=== PATIENT | male | born 1935 | race Caucasian/White ===

== ENCOUNTER 2023-01-05 09:24 | Outpatient (CLI) | payer MEDICARE, BC, SELFPAY | END 2023-01-05 09:25 | disposition home or self-care (01) | LOC: NFLDREF 01-07 09:54 | PROVIDERS: PCP Internal Medicine; Referring Provider Internal Medicine; Visit Provider Internal Medicine | DX: Z00.00 Encounter for general adult medical examination without abnormal findings (principal); I25.10 Atherosclerotic heart disease of native coronary artery without angina pectoris; R73.03 Prediabetes; I10 Essential (primary) hypertension; M10.9 Gout, unspecified; Z13.6 Encounter for screening for cardiovascular disorders | CPT/HCPCS: 80048; 80061 ==

== ENCOUNTER 2023-11-23 08:24 | Outpatient (CLI) | payer MEDICARE, BC, SELFPAY ==
--- NOTE | 2023-11-23 08:45 | US_ITS ---
Patient: EMI STARK Facility:?[facility] Patient ID:?[id number] Site Patient ID:?[id number]. Site :?[id number] Study:?US-Extremity LEV RT-11/23/2023 9:13:41 AM Ordering Physician:?ELIA BANKS Final Report: Indication: Pain right lower extremity Technique: Ultrasound examination of the right lower extremity venous system was performed. This includes the left common femoral vein. Comparison: None Findings: The left common femoral vein appears normal. There is DVT in 1 of the 2 right peroneal veins. These deep veins. This appears to be nonocclusive. The remainder of the right lower extremity venous system shows no evidence of thrombosis. Impression: 1. Nonocclusive thrombus involving 1 of the 2 right peroneal veins in the calf. 2. The venous system of the right lower extremity is otherwise unremarkable Dictated by Sae Burns MD @ 11/23/2023 9:26:34 AM Signed by:?Sae Burns MD @11/23/2023 9:26:34 AM (Electronic Signature)
== END 2023-11-23 08:25 | disposition home or self-care (01) ==
LOC: US 08:26
PROVIDERS: PCP Internal Medicine; Visit Provider Emergency Medicine
DX: M79.604 Pain in right leg (principal); I82.4Z1 Acute embolism and thrombosis of unspecified deep veins of right distal lower extremity
CPT/HCPCS: 80053; 84443; 85610; 93971

== ENCOUNTER 2023-12-27 09:20 | Outpatient (CLI) | payer MEDICARE, BC, SELFPAY ==
--- OUTSIDE RECORDS SUMMARY | 2024-01-16 10:14 | XMS_ITS | Encounter Summary ---
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 [address] [place] [phone] [facility] Referral ID Status Reason Start Date Expiration Date Visits Re quested Visits Authorized [id number] Closed 11/27/2023 11/26/2024 1 1 Encounter Details Date Type Department Care Team (Latest Contact Info) Description 11/29/2023 8:58 AM CDT - 11/29/2023 9:14 AM CDT Hospital Encounter Department of Radiology, [facility], in [place], [place] [address] [place] [address] Johny Martínez Jr., M.D. [address] [place] [address] Prosthesis Mitral Valve; Prosthesis Aortic Valve; Aneurysm [...] week 03/21/2021 How often do you attend [facility] or judaism services? More than 4 times per year 03/21/2021 Do you belong to any clubs o r organizations such as religious groups, unions, fraternal or athletic groups, or [...] and heating? Not hard at all 08/16/2023 [facility] - Occupational Stress [...] your living situation today? I have a [facility] place to live 08/16/2023 Education Answer Date Recorded What is the highest level of school you have completed or the highest degree you have received? 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 [address] [place] [phone] documented as of this encounter Procedures Procedure [...] (HCC) documented in this encounter Care Teams Casting Inspector Relationship Specialty Start Date End Date Elsewhere, Pcp PCP - General Family Medicine 03/24/21 documented as of this encounter
--- OUTSIDE RECORDS SUMMARY | 2024-01-16 10:14 | XMS_ITS | Referral Summary ---
Author Name Unknown Organization [facility] Address [address] [place] [address] Care Team Providers Care Crutcher Helper Name Role Phone Elsewhere, Pcp Primary Care Provider Unavailabl e Source Comments Patient records contain information from all sites at [facility]. For routine questions regarding patient records, call [phone] during business hours, M-F 8:00 AM - 5:00 PM Central Time. Record requests for emergency care only can be directed to [phone] at any time.[facility] Encounters Date Type Department Care Team Description 01/12/2024 Clinical Communication Department of Ophthalmology in [place], [place] [address] [place] [address] David Zeng M.D. 12/01/2023 Documentation Department of Cardiovascular Medicine in [place], [place] [address] [place] [phone] Johny Martínez Jr., M.D. 11/29/2023 4:00 PM CDT Diagnostic Division of Pulmonary Medicine in [place], [place] [address] [place] [phone] Johny Martínez Jr., M.D. Fibrosis Pulmonary (HCC); Ectopy Atrial 11/29/2023 8:58 AM CDT - 11/29/2023 9:14 AM CDT Hospital Encounter Department of Radiology, [facility], in [place], [place] [address] [place] [address] Johny Martínez Jr., M.D. 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 More than 4 times per year [...] and heating? Not hard at all 08/16/2023 [facility] - [...] your living situation today? I have a [facility] place to live 08/16/2023 Education Answer Date Recorded What is the highest level of school you have completed or the highest degree you have received? Master's degree (e.g., MA, MS, Fanny, MEd, SLD INCLUSION TEACHER, [employer]) 12/25/2020 Sex and Gender Information Value Date Recorded Sex Assigned at Male 08/16/2023 8:01 PM LACING CUTTER Gender Identity Male 12/22/2017 5:18 AM CDT [...] Ancillary Procedure Department of Ophthalmology in [place], [place] [address] [place] [address] 01/31/2024 9:45 AM CDT Comprehensive Visit Department of Ophthalmology in [place], [place] [address] [place] [address] David Zeng M.D. [address] [place] [address] Medical Devices Implanted Type Area Cook Chili Device Identifier Shelf Expiration Date Model / Serial / Lot Valve Trifecta 27mm Gt - [id number] Implanted:Qty: 1 on 11/20/[address] A[address] [employer] (a Division of [employer]) Description:Device Manufactu rer - [employer]. Body Location - Other. Aortic. Device Status Text - [id number]. Patch Dual Mesh 1mm 7.5 X 10 - Peace [id number] Implanted:Qty: 1 on 10/29/2009 Mesh or Patch Other/Legacy - See Implant Description [place] Description:Device Manufactu rer - [employer] Body Location - Other. Not Applicable. Device Status Text - [id number]. Misc Other- 0 Implanted:10/19 (Quantity not on file) Misc Other Mouth Description:Tooth implant Lens Tcn [id number] Bicnvx +14.0d - [id number] - [id number] Implanted:Qty: 1 on 03/24/2021 by David Zeng M.D. at [facility] [employer]onda Ocular Lens Left: Eye [employer] (Previously SHELIA) 10/12/2024 [id number] / [id number] / Lens Tcn [id number] Bicnvx +13.5d - [id number] - [id number] Implanted:Qty: 1 on 04/21/2021 by David Zeng M.D. at [facility] [employer] Ocular Lens Right: Eye [employer] (Previously SHELIA) 11/28/2024 [id number] / [id number] / Procedures Procedure Name Priority Date/Time [...] OUTSIDE DX CHEST Routine 11/23/2023 3:40 PM LACING CUTTER OUTSIDE US Routine 11/23/2023 8:45 AM LACING CUTTER from Last 3 Months Results * (TTE) 2D ECHO DOPPLER COLOR (11/29/2023 10:42 AM CDT) Pathologist [facility] [place] Ejection Fraction 50 MC CV EIMS Proximal [...] estimated ejection fraction range 50% - 55% (bmgk-sg-rcgk variability). 2. Status post 27mm [employer] [...] graphics), estimated ejectionfraction range 50% - 55% (cwor-au-uqxk variability). 2. Status post 27mm [employer] [...] CDT) Ventricular Rate ECG/Min 81 BPM MUSE SD Interval 136 ms MUSE QRSD Interval 150 ms MUSE QT Interval 416 ms MUSE QTC Interval 483 ms MUSE R [place] -61 degrees MUSE T Wave [place] 51 degrees MUSE 11/29/2023 8:39 AM CDT [...] M.D. LAB BLOOD ADD-ON Performing Organization Address [facility] [place] [address] * NT-Pro B-Type Natriuretic Peptide (BNP) (11/29/2023 8:22 AM CDT) [facility] NT-Pro BNP 337 <=540 pg/mL 11/29/2023 11:01 [...] M.D. LAB BLOOD ADD-ON Performing Organization Address [facility] Co de Phone Number [address] [place] [address] * (ABNORMAL) Prothrombin Time (PT) (11/29/2023 8:22 AM CDT) [facility] Prothrombin Time, P 31.1(H) 9.4 - 12.5 sec 11/29/2023 9:00 AM CDT DTL INR 2.8 0.9 - 1.1 11/29/2023 9:00 AM CDT DTL Comment: ----ADDITIONAL INFORMATION---- Standard intensity warfarin therapeutic range: 2.0 to 3.0 ?? High intensity warfarin therapeutic range: 2.5 to 3.5 Blood (Blood, Venous) 11/29/2023 8:22 AM CDT 11/29/2023 8:43 AM CDT Johny Martínez Jr., M.D. LAB BLOOD ADD-ON [address] [address], [facility] [address] [address] * (ABNORMAL) CBC with Differential, Blood (11/29/2023 8:22 AM CDT) Pathologist [facility] [place] Hemoglobin 13.0(L) 13.2 - 16.6 g/dL 11/29/2023 [...] M.D. LAB BLOOD ADD-ON Performing Organization Address City/[facility]/ZIP Co de Phone Number [facility] 200 [place] [address], [facility] [address] [place], [place] [address] [place] [address] 200 [place] [address] * Sodium (11/29/2023 8:22 AM CDT) Sodium, S 142 135 - 145 mmol/L 11/29/2023 11:01 AM CDT DTL Blood (Blood, Venous) 11/29/2023 8:22 AM CDT 11/29/2023 9:01 AM CDT Johny Martínez Jr., M.D. LAB BLOOD ADD-ON [facility] [address] [place] [address], [facility] [address] [place] [address] * Potassium (11/29/2023 8:22 AM CDT) Potassium, S 4.2 3.6 - 5.2 mmol/L 11/29/2023 11:01 AM CDT DTL Blood (Blood, Venous) 11/29/2023 8:22 AM CDT 11/29/2023 9:01 AM CDT Johny Martínez Jr., M.D. LAB BLOOD ADD-ON [facility] [address] [place] [address], [facility] [address] [place] [address] * (ABNORMAL) Glucose, Fasting (11/29/2023 8:22 AM CDT) Glucose, P 114(H) 70 - 100 mg/dL 11/29/2023 9:52 AM CDT DTL Last Intake 2 hr 11/29/2023 9:01 AM CDT DTL Blood (Blood, Venous) 11/29/2023 8:22 AM CDT 11/29/2023 9:01 AM CDT Johny Martínez Jr., M.D. LAB BLOOD NON AD D-ON Performing Organization Address [facility] Co de Phone Number [facility] [address] [place] [address], [facility] [address] [place] [address] * Creatinine with Estimated GFR (11/29/2023 8:22 AM CDT) Creatinine 1.17 0.74 - 1.35 mg/dL 11/29/2023 11:01 AM CDT DTL Estimated GFR (eGFR) 61 >=60 mL/min/BSA 11/29/2023 11:01 AM CDT DTL Comment: Estimated GFR calculated using the 2020 CKD_EPI creatinine equation. Blood (Blood, Venous) 11/29/2023 8:22 AM CDT 11/29/2023 9:01 AM CDT Johny Martínez Jr., M.D. LAB BLOOD ADD-ON [facility] [address] [place] [address], [facility] [address] [place] [address] * Albumin (11/29/2023 8:22 AM CDT) Albumin, S 3.9 3.5 - 5.0 g/dL 11/29/2023 11:01 AM CDT DTL Blood (Blood, Venous) 11/29/2023 8:22 AM CDT 11/29/2023 9:01 AM CDT Johny Martínez Jr., M.D. LAB BLOOD ADD-ON [facility] [address] [place] [address], [facility] [address] [place] [address] * PUL Home Overnight Oximetry (11/29/2023) 11/29/2023 Impressions [facility] NVISION EAP - 12/01/2023 6:37 AM CDT [...] the recording device. Physician: Anil Barakat M.B.B.S [id number] Narrative Procedure Note Anil Barakat M.B.B.S. - [...] from the recordingdevice. Physician: Anil Barakat M.B.B.S [id number] Johny Martínez Jr., M.D. PFT ORDERABLES Performing Organization Address [facility] de Phone Number [facility] * XR chest 2V-Outside Chest Xray (11/23/2023 3:40 PM LACING CUTTER) Narrative IIRI - 11/27/2023 3:59 PM CDT This order [...] DIAGNOSTIC IM AGING PROCEDURES Performing Organization Address [facility] de Phone Number IIMS NA * US venous LE RT-Outside US (11/23/2023 8:45 AM LACING CUTTER) Narrative IIRI - 11/27/2023 3:59 PM CDT This order [...] System IMG US PROCEDURES Performing Organization Address [facility] de Phone Number IIMS NA from Last 3 Months Advance Directives For more information, please contact: [phone] Documents on File Type Date Recorded 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 See document viewer. * Full Code (Latest Code Status on File) Date Activated Date Inactivated Comments 04/25/2018 9:45 PM 04/28/2018 2:47 PM Question Answer Comments Full Code: Not Discussed Due to: Patient not available Care Teams Crutcher Helper Relationship Specialty Start Date End Date Elsewhere, Pcp PCP - General Family Medicine 03/24/21
--- OUTSIDE RECORDS SUMMARY | 2024-01-16 10:14 | XMS_ITS | Encounter Summary ---
Author Name Unknown Organization [facility] Address [address] [place] [address] Care Team Providers Care School Bus Mechanic Name Role Phone Elsewhere, Pcp Primary Care Provider Unavailabl e Encounter Details Date Type Department Care Team ([facility] st Contact Info) Description 12/01/2023 Documentation Department of Cardiovascular Medicine in [place], [place] [address] [place] [address] Johny Martínez Jr., M.D. [address] [place] [address] Social History Tobacco Use Types Packs/Day Years [...] often do you attend chur ch or tenriism services? More than 4 times per year [...] and heating? Not hard at all 08/16/2023 [facility] - [...] your [facility] situation today? [facility] 08/16/2023 Education Answer Date Recorded What is the highest level of school you have completed or the highest degree you have received? Master's degree (e.g., MA, MS, Fanny, MEd, BUILDING SERVICES TECHNICIAN, [employer]) 12/25/2020 Sex and Gender Information Value Date Recorded Sex Assigned at Male 08/16/2023 8:01 PM TENTER FRAME OPERATOR Gender Identity Male 12/22/2017 5:18 AM [...] CDT Ancillary Procedure Department of Ophthalmology in [place], [place] [address] [place] [address] 01/31/2024 9:45 AM CDT Comprehensive Visit Department of Ophthalmology in [place], [place] [address] [place] [address] David Zeng M.D. [address] [place] [address] documented as of this encounter Visit Diagnoses Not on filedocumented in this encounter Care Teams School Bus Mechanic Relationship Specialty Start Date End Date Elsewhere, Pcp PCP - General Family Medicine 03/24/21 documented as of this encounter
--- OUTSIDE RECORDS SUMMARY | 2024-01-16 10:14 | XMS_ITS | Encounter Summary ---
Author Name Unknown Organization [facility] Address [address] [place] [address] Care Team Providers Care Senior Sales Director Name Role Phone Elsewhere, Pcp Primary Care Provider Unavailabl e Encounter Details Date Type Department Care Team (Latest Contact Info) Description 01/12/2024 Clinical Communication Department of Ophthalmology in [place], [place] [address] [place] [address] David Zeng M.D. [address] [place] [phone] Social History Tobacco Use Types Packs/Day Years [...] often do you attend chur ch or advent services? More than 4 times per year 03/21/2021 Do you belong to any clubs o r organizations such as muslim groups, unions, fraternal or athletic groups, or [...] and heating? Not hard at all 08/16/2023 [facility] - Occupational Stress [...] Master's degree (e.g., MA, MS, Fanny, MEd, ELECTRIC MOTOR ANALYST, [employer]) 12/25/2020 Sex and Gender Information Value Date Recorded Sex Assigned at Male 08/16/2023 8:01 PM SCHOOL PHOTOGRAPH EDITOR Gender Identity Male 12/22/2017 5:18 AM CDT Sexual Orientation Straight 12/22/2017 5: 18 AM CDT documented as of this encounter Plan of Treatment Upcoming Encounters Date Type Department Care Team (Latest Contact Info) Description 01/31/2024 9:15 AM CDT Ancillary Procedure Department of Ophthalmology in [place], [place] [address] [place] [address] 01/31/2024 9:45 AM CDT Comprehensive Visit Department of Ophthalmology in [place], [place] [address] [place] [address] David Zeng M.D. [address] [place] [address] documented as of this encounter Visit Diagnoses Not on filedocumented in this encounter Care Teams Senior Sales Director Relationship Specialty Start Date End Date Elsewhere, Pcp PCP - General Family Medicine 03/24/21 documented as of this encounter
--- OUTSIDE RECORDS SUMMARY | 2024-01-16 10:14 | XMS_ITS | Clinical Summary ---
Author Name Unknown Organization [facility] Address [address] [place] [address] Care Team Providers Care Auditing Control Clerk Name Role Phone Elsewhere, Pcp Primary Care Provider Unavailabl e Source Comments Patient records contain information from all sites at [facility]. For routine questions regarding patient records, call [phone] during business hours, M-F 8:00 AM - 5:00 PM Central Time. 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 12/01/2023 Documentation Department of Cardiovascular Medicine in [place], [place] [address] [place] [address] Johny Martínez Jr., M.D. 11/29/2023 4:00 PM CDT Diagnostic Division of Pulmonary Medicine in [place], [place] [address] [place] [address] Johny Martínez Jr., M.D. Fibrosis Pulmonary (HCC); Ectopy Atrial 11/29/2023 2:00 PM CDT Office Visit Department of Cardiovascular Medicine in [place], [place] [address] [place] [address] Johny Martínez Jr., M.D. 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 from Last 3 [...] often do you attend chur ch or mosque services? More than 4 times per year [...] and heating? Not hard at all 08/16/2023 [facility] [place] of Occupat ional Health - Occupational Stress [...] your living situation today? I have a [facility] place to live 08/16/2023 Education Answer Date Recorded What is the highest level of school you have completed or the highest degree you have received? Master's degree (e.g., MA, MS, Fanny, MEd, YEAST TENDER, [employer]) 12/25/2020 Sex and Gender Information Value Date Recorded Sex Assigned at Male 08/16/2023 8:01 PM HEALTH UNIT COORDINATOR Gender Identity Male 12/22/2017 5:18 AM [...] CDT Ancillary Procedure Department of Ophthalmology in [place], [place] [address] [place] [address] 01/31/2024 9:45 AM CDT Comprehensive Visit Department of Ophthalmology in [place], [place] [address] [place] [address] David Zeng M.D. [address] [place] [address] Health Maintenance Due Date Last Done Comments DTaP,Tdap,and Td Vaccines (2 - Td or Tdap) 05/08/2023 05/08/2013, 01/26/2005, 09/18/2002 Depression Screening (Annual PHQ-2) 09/18/2023 Fall Risk Screen (Annual) 09/18/2023 COVID-19 Vaccine (7 2022- 4 season) 2023 06/16/2023, 08/25/2022, 12/28/2021, Additional [...] history exists Medical Devices Implanted Type Area Office Clin Asst Device Identifier Shelf Expiration Date Model / Serial / Lot Valve Trifecta 27mm Gt - [id number] Implanted:Qty: 1 on 11/20/[address] Aorta [employer] (a Division of [employer]) Description:Device Manufactu rer - [employer]. Body Location - Other. Aortic. Device Status Text - [id number]. Patch Dual Mesh 1mm 7.5 X 10 - [id number] Implanted:Qty: 1 on 10/29/2009 Mesh or Patch Other/Legacy - See Implant Description [place] Description:Device Manufactu rer - [employer] Body Location - Other. Not Applicable. Device Status Text - [id number]. Misc Other- Implanted:10/19 (Quantity not on file) Misc Other Mouth Description:Tooth implant Lens Tcn [id number] Bicnvx +14.0d - [id number] - [id number] Implanted:Qty: 1 on 03/24/2021 by David Zeng M.D. at [facility] Ocular Lens Left: Eye [employer] (Previously SHELIA) 10/12/2024 [id number] / [id number] / Lens Tcn [id number] Bicnvx +13.5d - [id number] - [id number] Implanted:Qty: 1 on 04/21/2021 by David Zeng M.D. at [facility] Ocular Lens Right: Eye [employer] (Previously [employer]IA) 11/28/2024 [id number] / [id number] / Procedures Procedure Name Priority Date/Time [...] DX CHEST Routine 11/23/2023 3:40 PM HEALTH UNIT COORDINATOR OUTSIDE US Routine 11/23/2023 8:45 AM HEALTH UNIT COORDINATOR from Last 3 Months Results * (TTE) [...] estimated ejection fraction range 50% - 55% (samd-ui-jctz variability). 2. Status post 27mm [employer] [...] graphics), estimated ejectionfraction range 50% - 55% (kgzx-gc-brou variability). 2. Status post 27mm [employer] [...] CDT) Ventricular Rate ECG/Min 81 BPM MUSE PA Interval 136 ms MUSE QRSD Interval 150 ms MUSE QT Interval 416 ms MUSE QTC Interval 483 ms MUSE R [place] -61 degrees MUSE T Wave [place] 51 degrees MUSE 11/29/2023 8:39 AM CDT [...] Johny Martínez Jr., M.D. LAB BLOOD ADD-ON [facility] [address] [place] [address], [facility] 200 [place] [address] * NT-Pro B-Type Natriuretic Peptide (BNP) (11/29/2023 [...] Johny Martínez Jr., M.D. LAB BLOOD ADD-ON [facility] 200 [place] [address], [facility] 200 [place] [address] * (ABNORMAL) Prothrombin Time (PT) (11/29/2023 8:22 [...] Johny Martínez Jr., M.D. LAB BLOOD ADD-ON [facility] [address] [place] [address], [facility] DTL [facility] [address] [place] [address] * (ABNORMAL) CBC with Differential, Blood (11/29/2023 [...] Johny Martínez Jr., M.D. LAB BLOOD ADD-ON [facility] 200 [place] [address], [facility] 200 [place], [place] [address] [place] [address] 200 [place] [address] * Sodium (11/29/2023 8:22 AM CDT) Sodium, S 142 135 - 145 mmol/L 11/29/2023 11:01 AM CDT DTL Blood (Blood, Venous) 11/29/2023 8:22 AM CDT 11/29/2023 9:01 AM CDT Johny Martínez Jr., M.D. LAB BLOOD ADD-ON Performing Organization Address City/[facility]/ZIP Co de Phone Number [facility] 200 [place] [address], [facility] 200 [place] [address] * Potassium (11/29/2023 8:22 AM CDT) Potassium, S 4.2 3.6 - 5.2 mmol/L 11/29/2023 11:01 AM CDT DTL Blood (Blood, Venous) 11/29/2023 8:22 AM CDT 11/29/2023 9:01 AM CDT Johny Martínez Jr., M.D. LAB BLOOD ADD-ON [facility] [address] [place], [place] [address] 200 [place] [address] * (ABNORMAL) Glucose, Fasting (11/29/2023 8:22 AM CDT) Glucose, P 114(H) 70 - 100 mg/dL 11/29/2023 9:52 AM CDT DTL Last Intake 2 hr 11/29/2023 9:01 AM CDT DTL Blood (Blood, Venous) 11/29/2023 8:22 AM CDT 11/29/2023 9:01 AM CDT Johny Martínez Jr., M.D. LAB BLOOD NON AD D-ON Performing Organization Address [facility] Co de Phone Number [facility] [address] DTL [facility] 200 [place] [address] * Creatinine with Estimated GFR (11/29/2023 8:22 AM CDT) Creatinine 1.17 0.74 - 1.35 mg/dL 11/29/2023 11:01 AM CDT DTL Estimated GFR (eGFR) 61 >=60 mL/min/BSA 11/29/2023 11:01 AM CDT DTL Comment: Estimated GFR calculated using the 2020 CKD_EPI creatinine equation. Blood (Blood, Venous) 11/29/2023 8:22 AM CDT 11/29/2023 9:01 AM CDT Johny Martínez Jr., M.D. LAB BLOOD ADD-ON Performing Organization Address [facility] Co de Phone Number [facility] [address] [place] [address], [facility] DTL [facility] 200 [place] [address] * Albumin (11/29/2023 8:22 AM CDT) Albumin, S 3.9 3.5 - 5.0 g/dL 11/29/2023 11:01 AM CDT DTL Blood (Blood, Venous) 11/29/2023 8:22 AM CDT 11/29/2023 9:01 AM CDT Johny C Martínez Jr., M.D. LAB BLOOD ADD-ON Performing Organization Address [facility] Co de Phone Number [facility] [address] [place] [address], [place] DTL [facility] [address] [place] [address] * PUL Home Overnight Oximetry (11/29/2023) 11/29/2023 Impressions MILTON EMANUEL ZAC - 12/01/2023 6:37 AM CDT This [...] the recording device. Physician: Anil Barakat M.B.B.S [id number] Narrative Procedure Note Anil Barakat M.B.B.S. - [...] from the recordingdevice. Physician: Anil Barakat M.B.B.S [id number] Johny Martínez Jr., M.D. PFT ORDERABLES Performing Organization Address City/[facility]/ZIP Co de Phone Number BUSBY NVISION EAP * XR chest 2V-Outside Chest Xray (11/23/2023 3:40 PM HEALTH UNIT COORDINATOR) Narrative IIOR - 11/27/2023 3:59 PM CDT This order has been created and auto-finalized to support the import of outside images. If available, original interpretation can be found on the Media Tab in Chart Review, in Document Viewer, or as an image in QREADS. If a re-interpretation or overread is required please follow defined workflow. ?? Provider Not In System IMG DIAGNOSTIC IM AGING PROCEDURES IIMS NA * US venous LE RT-Outside US (11/23/2023 8:45 AM HEALTH UNIT COORDINATOR) Narrative IIOR - 11/27/2023 3:59 PM CDT This order [...] System IMG US PROCEDURES Performing Organization Address City/[facility] Co de Phone Number IIMS NA from Last 3 Months Advance Directives For more information, please contact: [phone] Documents on File Type Date Recorded Patient Artificial Stone Setter Expl anation Advance Directives 10/26/2023 11:59 AM BODY /ORGAN DONATION Advance Directives 04/27/2018 8:52 PM Advance Directives 11/20/2017 12:00 AM Jaren collado document. See document viewer. * Full Code (Latest Code Status on File) Date Activated Date Inactivated Comments 04/25/2018 9:45 PM 04/28/2018 2:47 PM Question Answer Comments Full Code: Not Discussed Due to: Patient not available Care Teams Auditing Control Clerk Relationship Specialty Start Date End Date Elsewhere, Pcp PCP - General Family Medicine 03/24/21
--- OUTSIDE RECORDS SUMMARY | 2024-01-16 10:14 | XMS_ITS ---
Author Name Unknown Organization [facility] Address [address] [place] [address] Care Team Providers Care Steel Inspector Name Role Phone Unavailable Unavailable Unavailable Surgery Details Not on file Complications Check Surgery Details section. Procedure Estimated Blood Loss Check Surgery Details section. Procedure Findings Check Surgery Details section. Procedure Specimens Taken Check Surgery Details section.
--- OUTSIDE RECORDS SUMMARY | 2024-01-16 10:14 | XMS_ITS | Encounter Summary ---
Author Name Unknown Organization [facility] Address [address] [place] [address] Care Team Providers Care Alliances Consultant Name Role Phone Elsewhere, Pcp Primary Care Provider Unavailabl e Encounter Details Date Type Department Care Team ([facility] st Contact Info) Description 11/29/2023 4:00 PM CDT Diagnostic Division of Pulmonary Medicine in [place], [place] [address] [place] [address] Johny Martínez Jr., M.D. [address] [place] [address] Fibrosis Pulmonary (HCC); Ectopy Atrial Social History [...] often do you attend chur ch or taoist services? More than 4 times per year 03/21/2021 Do you belong to any clubs o r organizations such as rastafarian groups, unions, fraternal or athletic groups, or [...] and heating? Not hard at all 08/16/2023 [facility] [place] of Occupat ional Health - Occupational Stress [...] your living situation today? I have a [facility] place to live 08/16/2023 Education Answer Date Recorded What is the highest level of school you have completed or the highest degree you have received? Master's degree (e.g., MA, MS, Fanny, MEd, RPG PROGRAMMER ANALYST, [employer]) 12/25/2020 Sex and Gender Information Value Date Recorded Sex Assigned at Male 08/16/2023 8:01 PM SITE MEDICAL DIRECTOR Gender Identity Male 12/22/2017 5:18 AM CDT Sexual Orientation Straight 12/22/2017 5: 18 AM CDT documented as of this encounter Plan of Treatment Upcoming Encounters Date Type Department Care Team (Latest Contact Info) Description 01/31/2024 9:15 AM CDT Ancillary Procedure Department of Ophthalmology in [place], [place] [address] [place] [address] 01/31/2024 9:45 AM CDT Comprehensive Visit Department of Ophthalmology in [place], [place] [address] [place] [address] David eZng M.D. [address] [place] [address] documented as of this encounter Procedures Procedure Name Priority Date/Time Associated Diagnosis Comments PUL HOME OVERNIGHT OXIMETRY Routine 11/29/2023 Fibrosis Pulmonary (HCC) Ectopy Atrial documented in this encounter Results * PUL Home Overnight Oximetry (11/29/2023) 11/29/2023 Impressions TAYLOR NVISION EAP - 12/01/2023 6:37 AM CDT [...] the recording device. Physician: Anil Barakat M.B.B.S [id number] Narrative Procedure Note Anil Barakat M.B.B.S. - [...] from the recordingdevice. Physician: Anil Barakat M.B.B.S [id number] Johny Martínez Jr., M.D. PFT ORDERABLES [facility] documented in this encounter Visit Diagnoses Diagnosis Fibrosis Pulmonary (HCC) Ectopy Atrial documented in this encounter Care Teams Alliances Consultant Relationship Specialty Start Date End Date Elsewhere, Pcp PCP - General Family Medicine 03/24/21 documented as of this encounter
--- OUTSIDE RECORDS SUMMARY | 2024-01-16 10:15 | XMS_ITS | Encounter Summary ---
Author Name Unknown Organization [facility] Address [address] [place] [address] Care Team Providers Care Parking Station Attendant Name Role Phone Elsewhere, Pcp Primary Care Provider Unavailabl e Encounter Details Date Type Department Care Team (Late st Contact Info) Description 12/26/2016 Historical Ophthalmology [facility] Janey Torres O.D. [address] [place] [address] Social History Tobacco Use Types Packs/Day Years Used Date Smoking Tobacco: Never Assessed Sex and Gender Information Value Date Recorded Sex Assigned at Male 08/16/2023 8:01 PM FORM COVERER Gender Identity Male 12/22/2017 5:18 AM CDT [...] (myopia, presbyopia). CDM Reports - EYEGEN Id: [id number] Status: Fnl documented in this encounter Plan of Treatment Upcoming Encounters Date Type Department Care Team (Latest Contact Info) Description 01/31/2024 9:15 AM CDT Ancillary Procedure Department of Ophthalmology in [place], [place] [address] [place] [address] 01/31/2024 9:45 AM CDT Comprehensive Visit Department of Ophthalmology in [place], [place] [address] [place] [address] David Zeng M.D. [address] [place] [address] documented as of this encounter Visit Diagnoses Not on filedocumented in this encounter Additional Health Concerns Infection Onset Date Last Indicated Resolved Time COVID19 Pending 03/22/2021 03/22/2021 03/22/2021 5 :21 PM CDT COVID19 Pending 04/20/2021 04/20/2021 04/20/2021 1 1:46 AM CDT documented as of this encounter Care Teams Parking Station Attendant Relationship Specialty Start Date End Date Elsewhere, Pcp PCP - General Family Medicine 03/24/21 documented as of this encounter
--- OUTSIDE RECORDS SUMMARY | 2024-01-16 10:15 | XMS_ITS | Encounter Summary ---
Author Name Unknown Organization [facility] Address [address] [place] [address] Care Team Providers Care After School Program Teacher Name Role Phone Elsewhere, Pcp Primary Care Provider Unavailabl e Encounter Details Date Type Department Care Team (Late st Contact Info) Description 02/10/2010 Historical Ophthalmology [facility] Ranjit Mcdonald M.D. Social History Tobacco Use Types Packs/Day Years Used Date Smoking Tobacco: Never Assessed Sex and Gender Information Value Date Recorded Sex Assigned at Male 08/16/2023 8:01 PM ELECTRICAL AND INSTRUMENTATION MANAGER Gender Identity Male 12/22/2017 5:18 AM [...] Refractive error (myopia, presbyopia). CDM Reports - EYELio Social Id: [id number] Status: Fnl documented in this encounter Plan of Treatment Upcoming Encounters Date Type Department Care Team (Latest Contact Info) Description 01/31/2024 9:15 AM CDT Ancillary Procedure Department of Ophthalmology in [place], [place] [address] [place] [address] 01/31/2024 9:45 AM CDT Comprehensive Visit Department of Ophthalmology in [place], [place] [address] [place] [address] David Zeng M.D. [address] [place] [address] documented as of this encounter Visit Diagnoses Not on filedocumented in this encounter Additional Health Concerns Infection Onset Date Last Indicated Resolved Time COVID19 Pending 03/22/2021 03/22/2021 03/22/2021 5 :21 PM CDT COVID19 Pending 04/20/2021 04/20/2021 04/20/2021 1 1:46 AM CDT documented as of this encounter Care Teams After School Program Teacher Relationship Specialty Start Date End Date Elsewhere, Pcp PCP - General Family Medicine 03/24/21 documented as of this encounter
--- OUTSIDE RECORDS SUMMARY | 2024-01-16 10:15 | XMS_ITS | Encounter Summary ---
Author Name Unknown Organization [facility] Address [address] [place] [address] Care Team Providers Care Sprinkler Fitter Helper Name Role Phone Elsewhere, Pcp Primary Care Provider Unavailabl e Encounter Details Date Type Department Care Team (Late st Contact Info) Description 01/22/2015 Historical Ophthalmology [facility] Janey Torres O.D. [address] [place] [address] Social History Tobacco Use Types Packs/Day Years Used Date Smoking Tobacco: Never Assessed Sex and Gender Information Value Date Recorded Sex Assigned at Male 08/16/2023 8:01 PM BARGE LOADER Gender Identity Male 12/22/2017 5:18 AM CDT [...] LE wnl. RNFL 88/90. SS 03/25. 01/2014 Daan 24-2 RE and LE scatter. 01/30: Re [...] Refractive error (myopia, presbyopia). CDM Reports - EYEMyMundus Id: [id number] Status: Fnl documented in this encounter Plan of Treatment Upcoming Encounters Date Type Department Care Team (Latest Contact Info) Description 01/31/2024 9:15 AM CDT Ancillary Procedure Department of Ophthalmology in [place], [place] [address] [place] [address] 01/31/2024 9:45 AM CDT Comprehensive Visit Department of Ophthalmology in [place], [place] [address] [place] [address] David Zeng M.D. [address] [place] [address] documented as of this encounter Visit Diagnoses Not on filedocumented in this encounter Additional Health Concerns Infection Onset Date Last Indicated Resolved Time COVID19 Pending 03/22/2021 03/22/2021 03/22/2021 5 :21 PM CDT COVID19 Pending 04/20/2021 04/20/2021 04/20/2021 1 1:46 AM CDT documented as of this encounter Care Teams Sprinkler Fitter Helper Relationship Specialty Start Date End Date Elsewhere, Pcp PCP - General Family Medicine 03/24/21 documented as of this encounter
--- OUTSIDE RECORDS SUMMARY | 2024-01-16 10:15 | XMS_ITS | Encounter Summary ---
Author Name Unknown Organization [facility] Address [address] [place] [address] Care Team Providers Care Remediation Project Engineer Name Role Phone Elsewhere, Pcp Primary Care Provider Unavailabl e Reason for Visit * Reason Onset Date Comments Pre-visit Intake 11/27/2023 Encounter Details Date Type Department Care Team (Latest Contact Info) Description 11/27/2023 2:00 PM CDT Clinical Communication Virtual Review in [place], [place] [address] [place] [address] Pre-visit Intake Social History Tobacco Use Types [...] often do you attend chur ch or anabaptism services? More than 4 times per year 03/21/2021 Do you belong to any clubs o r organizations such as lutheran groups, unions, fraternal or athletic groups, or [...] and heating? Not hard at all 08/16/2023 [facility] [place] of Occupat ional Health - Occupational Stress [...] Master's degree (e.g., MA, MS, Fanny, MEd, FLAKE OR SHRED ROLL OPERATOR, [employer]) 12/25/2020 Sex and Gender Information Value Date Recorded Sex Assigned at Male 08/16/2023 8:01 PM MACHINE VENEER REPAIRER Gender Identity Male 12/22/2017 5:18 AM CDT Sexual Orientation Straight 12/22/2017 5: 18 AM CDT documented as of this encounter Plan of Treatment Upcoming Encounters Date Type Department Care Team (Latest Contact Info) Description 01/31/2024 9:15 AM CDT Ancillary Procedure Department of Ophthalmology in [place], [place] [address] [place] [address] 01/31/2024 9:45 AM CDT Comprehensive Visit Department of Ophthalmology in [place], [place] [address] [place] [address] David Zeng M.D. [address] [place] [address] documented as of this encounter Visit Diagnoses Not on filedocumented in this encounter Care Teams Remediation Project Engineer Relationship Specialty Start Date End Date Elsewhere, Pcp PCP - General Family Medicine 03/24/21 documented as of this encounter
--- OUTSIDE RECORDS SUMMARY | 2024-01-16 10:15 | XMS_ITS | Encounter Summary ---
Author Name Unknown Organization [facility] Address [address] [place] [address] Care Team Providers Care Technical Customer Support Specialist Name Role Phone Elsewhere, Pcp Primary Care Provider Unavailabl e Encounter Details Date Type Department Care Team (Late st Contact Info) Description 01/10/2018 Historical Ophthalmology RST OPH Janey Torres O.D. [address] [place] [address] Social History Tobacco Use Types Packs/Day Years Used Date Smoking Tobacco: Never Sex and Gender Information Value Date Recorded Sex Assigned at Male 08/16/2023 8:01 PM IMPORT MANAGER Gender Identity Male 12/22/2017 5:18 AM [...] Refractive error (myopia, presbyopia). CDM Reports - EYEPlanitax Id: [id number] Status: Fnl documented in this encounter Plan of Treatment Upcoming Encounters Date Type Department Care Team (Latest Contact Info) Description 01/31/2024 9:15 AM CDT Ancillary Procedure Department of Ophthalmology in [place], [place] [address] [place] [address] 01/31/2024 9:45 AM CDT Comprehensive Visit Department of Ophthalmology in [place], [place] [address] [place] [address] David Zeng M.D. [address] [place] [address] documented as of this encounter Visit Diagnoses Not on filedocumented in this encounter Additional Health Concerns Infection Onset Date Last Indicated Resolved Time COVID19 Pending 03/22/2021 03/22/2021 03/22/2021 5 :21 PM CDT COVID19 Pending 04/20/2021 04/20/2021 04/20/2021 1 1:46 AM CDT documented as of this encounter Care Teams Technical Customer Support Specialist Relationship Specialty Start Date End Date Elsewhere, Pcp PCP - General Family Medicine 03/24/21 documented as of this encounter
--- OUTSIDE RECORDS SUMMARY | 2024-01-16 10:15 | XMS_ITS | Encounter Summary ---
Author Name Unknown Organization [facility] Address [address] [place] [address] Care Team Providers Care Mold Repairer Name Role Phone Elsewhere, Pcp Primary Care Provider Unavailabl e Encounter Details Date Type Department Care Team (Late st Contact Info) Description 01/16/2012 Historical Ophthalmology RST OPH Janey Torres O.D. 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 CDM Reports - EYEGEN Id: [id number] Status: Fnl documented in this encounter Plan of Treatment Upcoming Encounters Date Type Department Care Team (Latest Contact Info) Description 01/31/2024 9:15 AM CDT Ancillary Procedure Department of Ophthalmology in [place], [place] [address] [place] [address] 01/31/2024 9:45 AM CDT Comprehensive Visit Department of Ophthalmology in [place], [place] [address] [place] [address] David Zeng M.D. [address] [place] [address] documented as of this encounter Visit Diagnoses Not on filedocumented in this encounter Additional Health Concerns Infection Onset Date Last Indicated Resolved Time COVID19 Pending 03/22/2021 03/22/2021 03/22/2021 5 :21 PM CDT COVID19 Pending 04/20/2021 04/20/2021 04/20/2021 1 1:46 AM CDT documented as of this encounter Care Teams Mold Repairer Relationship Specialty Start Date End Date Elsewhere, Pcp PCP - General Family Medicine 03/24/21 documented as of this encounter
--- OUTSIDE RECORDS SUMMARY | 2024-01-16 10:15 | XMS_ITS | Encounter Summary ---
Author Name Unknown Organization [facility] Address [address] [place] [address] Care Team Providers Care Software Test Specialist Name Role Phone Elsewhere, Pcp Primary Care Provider Unavailabl e Encounter Details Date Type Department Care Team (Late st Contact Info) Description 03/07/2011 Historical Ophthalmology RST OPH Ranjit Mcdonald M.D. 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 CDM Reports - EYEMetaresolver Id: [id number] Status: Fnl documented in this encounter Plan of Treatment Upcoming Encounters Date Type Department Care Team (Latest Contact Info) Description 01/31/2024 9:15 AM CDT Ancillary Procedure Department of Ophthalmology in [place], [place] [address] [place] [address] 01/31/2024 9:45 AM CDT Comprehensive Visit Department of Ophthalmology in [place], [place] [address] [place] [address] David Zeng M.D. [address] [place] [address] documented as of this encounter Visit Diagnoses Not on filedocumented in this encounter Additional Health Concerns Infection Onset Date Last Indicated Resolved Time COVID19 Pending 03/22/2021 03/22/2021 03/22/2021 5 :21 PM CDT COVID19 Pending 04/20/2021 04/20/2021 04/20/2021 1 1:46 AM CDT documented as of this encounter Care Teams Software Test Specialist Relationship Specialty Start Date End Date Elsewhere, Pcp PCP - General Family Medicine 03/24/21 documented as of this encounter
--- OUTSIDE RECORDS SUMMARY | 2024-01-16 10:15 | XMS_ITS | Encounter Summary ---
Author Name Unknown Organization [facility] Address [address] [place] [address] Care Team Providers Care Aluminum Fabrication Supervisor Name Role Phone Elsewhere, Pcp Primary Care Provider Unavailabl e Encounter Details Date Type Department Care Team (Late st Contact Info) Description 12/25/2015 Historical Ophthalmology RST OPH María Martin, C.O.A. 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 [address] [place] [address] documented as of this encounter Visit Diagnoses Not on filedocumented in this encounter Additional Health Concerns Infection Onset Date Last Indicated Resolved Time COVID19 Pending 03/22/2021 03/22/2021 03/22/2021 5 :21 PM CDT COVID19 Pending 04/20/2021 04/20/2021 04/20/2021 1 1:46 AM CDT documented as of this encounter Care Teams Aluminum Fabrication Supervisor Relationship Specialty Start Date End Date Elsewhere, Pcp PCP - General Family Medicine 03/24/21 documented as of this encounter
--- OUTSIDE RECORDS SUMMARY | 2024-01-16 10:15 | XMS_ITS | Encounter Summary ---
Author Name Unknown Organization [facility] Address [address] [place] [address] Care Team Providers Care Merry Go Round Attendant Name Role Phone Elsewhere, Pcp Primary Care Provider Unavailabl e Reason for Referral * Outpatient (Routine) - Authorized Specialty Diagnoses / Procedures Referred By Evie t Referred To Contact Ophthalmology Diagnoses Intraocular Lens Implant Status Post Opacity Lens Posterior Capsule Procedures Yag Capsulotomy - OD - Right Eye Dorota Ibarra O.D. [address] [place] [address] [facility] Referral ID Status Reason Start Date Expiration Date V isits Requested Visits Authorized [id number] Authorized 01/10/2024 01/09/2025 1 1 * Outpatient (Routine) - Authorized Specialty Diagnoses / Procedures Referred By Evie t Referred To Contact Ophthalmology [place] [address] [facility] Referral ID Status Reason Start Date Expiration Date V isits Requested Visits Authorized [id number] Authorized 08/21/2023 08/20/2026 1 1 Scheduling Instructions [facility] glc with testing NE preferred OTELEGRAPHIST Reason for Visit * Reason Comments Glaucoma Suspect * Outpatient (Routine) - Closed Specialty Diagnoses / Procedures Referred By Contac t Referred To Contact Ophthalmology Dorota Ibarra O.D. [address] [place] [phone] [facility] Referral ID Status Reason Start Date Expiration Date Visits Re quested Visits Authorized [id number] Closed 06/15/2022 06/14/2025 1 1 Encounter Details Date Type Department Care Team (Latest Contact Info) Description 08/21/2023 3:45 PM RADIOTELEGRAPHIST Office Visit Department of Ophthalmology in [place], [place] [address] [place] [phone] Dorota Ibarra O.D. [address] [place] [address] Glaucoma Suspect Ocular Hypertension Bilateral (Primary Dx); [...] often do you attend chur ch or catholic services? More than 4 times per year 03/21/2021 Do you belong to any clubs o r organizations such as christianity groups, unions, fraternal or athletic groups, or [...] and heating? Not hard at all 08/16/2023 [facility] [place] of Occupat ional Health - Occupational Stress [...] Master's degree (e.g., MA, MS, Fanny, MEd, SLASHER HAND, [employer]) 12/25/2020 Sex and Gender Information Value Date Recorded Sex Assigned at Male 08/16/2023 8:01 PM RADIOTELEGRAPHIST Gender Identity Male 12/22/2017 5:18 AM CDT [...] off drops. Follow up 12 mo with [facility] for HVF, dilation w tech, and [...] eyes (Dr. House, Apr 22). Flat, stable. OTELEGRAPHIST documented in this encounter Miscellaneous Notes * Addendum Note - Dorota Ibarra O.D. - 08/21/2023 3:45 PM CSTAddended by: DOROTA IBARRA on: 01/10/2024 12:56 PM Modules accepted: Orders documented in this encounter Plan of Treatment Upcoming Encounters Date Type Department Care Team (Latest Contact Info) Description 01/31/2024 9:15 AM CDT Ancillary Procedure Department of Ophthalmology in [place], [place] [address] [place] [address] 01/31/2024 9:45 AM CDT Comprehensive Visit Department of Ophthalmology in [place], [place] [address] [place] [address] David Zeng M.D. [address] [place] [address] Scheduled Orders Name Type Priority Associated Diagnoses [...] Bilateral documented in this encounter Care Teams Merry Go Round Attendant Relationship Specialty Start Date End Date Elsewhere, Pcp PCP - General Family Medicine 03/24/21 documented as of this encounter
--- OUTSIDE RECORDS SUMMARY | 2024-01-16 10:15 | XMS_ITS | Encounter Summary ---
Author Name Unknown Organization [facility] Address [address] [place] [address] Care Team Providers Care Denture Processor Name Role Phone Elsewhere, Pcp Primary Care Provider Unavailabl e Reason for Visit * Appointment Request (Routine) - Closed Specialty Diagnoses / Procedures Referred By Contac t Referred To Contact Cardiovascular Disease Referral ID Status Reason Start Date Expiration Date Visits Re quested Visits Authorized [id number] Closed 11/27/2023 11/26/2024 1 1 Encounter Details Date Type Department Care Team (Latest Contact Info) Description 11/29/2023 2:00 PM CDT Office Visit Department of Cardiovascular Medicine in [place], [place] [address] [place] [address] Johny Martínez Jr., M.D. 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 More than 4 times [...] at all 08/16/2023 [facility] [place] of Occupat ional Health - Occupational Stress [...] living situation today? I have a [facility] place to live 08/16/2023 Education Answer Date Recorded What is the highest level of school you have completed or the highest degree you have received? 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 I [...] cardiac standpoint. He took a trip to [facility] several months ago and wore support hose [...] treatment for one week. 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 [address] [place] [address] documented as of this encounter Results * PUL Home Overnight Oximetry (11/29/2023) 11/29/2023 Impressions N[facility]A EMANUEL FRANK - 12/01/2023 6:37 AM CDT [...] the recording device. Physician: Anil Barakat M.B.B.S [id number] Narrative Procedure Note Anil Barakat M.B.B.S. - [...] from the recordingdevice. Physician: Anil Barakat M.B.B.S [id number] Johny Martínez Jr., M.D. 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
--- OUTSIDE RECORDS SUMMARY | 2024-01-16 10:15 | XMS_ITS | Encounter Summary ---
Author Name Unknown Organization [facility] Address [address] [place] [address] Care Team Providers Care Sole Painter Name Role Phone Elsewhere, Pcp Primary Care Provider Unavailabl e Encounter Details Date Type Department Care Team (Late st Contact Info) Description 01/23/2014 Historical Ophthalmology RST OPH Janey Torres O.D. [address] [place] [address] Social History Tobacco Use Types Packs/Day Years Used Date Smoking Tobacco: Never Assessed Sex and Gender Information Value Date Recorded Sex Assigned at Male 08/16/2023 8:01 PM INSIGHT LEADER Gender Identity Male 12/22/2017 5:18 AM CDT [...] Refractive error (myopia, presbyopia). CDM Reports - EYESpectropath Id: [id number] Status: Fnl documented in this encounter Plan of Treatment Upcoming Encounters Date Type Department Care Team (Latest Contact Info) Description 01/31/2024 9:15 AM CDT Ancillary Procedure Department of Ophthalmology in [place], [place] [address] [place] [address] 01/31/2024 9:45 AM CDT Comprehensive Visit Department of Ophthalmology in [place], [place] [address] [place] [address] David Zeng M.D. [address] [place] [address] documented as of this encounter Visit Diagnoses Not on filedocumented in this encounter Additional Health Concerns Infection Onset Date Last Indicated Resolved Time COVID19 Pending 03/22/2021 03/22/2021 03/22/2021 5 :21 PM CDT COVID19 Pending 04/20/2021 04/20/2021 04/20/2021 1 1:46 AM CDT documented as of this encounter Care Teams Sole Painter Relationship Specialty Start Date End Date Elsewhere, Pcp PCP - General Family Medicine 03/24/21 documented as of this encounter
--- OUTSIDE RECORDS SUMMARY | 2024-01-16 10:15 | XMS_ITS | Encounter Summary ---
Author Name Unknown Organization [facility] Address [address] [place] [address] Care Team Providers Care Relays Draftsperson Name Role Phone Elsewhere, Pcp Primary Care Provider Unavailabl e Encounter Details Date Type Department Care Team (Latest Contact Info) Description 11/29/2023 7:57 AM CDT - 11/29/2023 8:57 AM CDT Hospital Encounter Department of Laboratory Medicine and Pathology, [facility], in [place], [place] [address] [place] [address] Johny Martínez Jr., M.D. [address] [place] [address] Prosthesis Mitral Valve; Prosthesis Aortic Valve; Aneurysm [...] often do you attend chur ch or nondenominational services? More than 4 times per year 03/21/2021 Do you belong to any clubs o r organizations such as zoroastrian groups, unions, fraternal or athletic groups, or [...] and heating? Not hard at all 08/16/2023 [facility] of Occupat ional Health - Occupational Stress [...] your living situation today? I have a [facility] place to live 08/16/2023 Education Answer Date Recorded What is the highest level of school you have completed or the highest degree you have received? Master's degree (e.g., MA, MS, Fanny, MEd, CALENDER MACHINE OPERATOR HELPER, [employer]) 12/25/2020 Sex and Gender Information Value Date Recorded Sex Assigned at Male 08/16/2023 8:01 PM ENVIRONMENTAL HEALTH MANAGER Gender Identity Male 12/22/2017 5:18 AM [...] CDT Ancillary Procedure Department of Ophthalmology in [place], [place] [address] [place] [address] 01/31/2024 9:45 AM CDT Comprehensive Visit Department of Ophthalmology in [place], [place] [address] [place] [address] David Zeng M.D. [address] [place] [address] documented as of this encounter Procedures Procedure [...] Johny Martínez Jr., M.D. LAB BLOOD ADD-ON [place] [address] [place] [address], [facility] [address] [place] [address] * Lipid Panel (11/29/2023 8:22 AM CDT) Pathologist [facility] [place] Triglycerides 67 mg/dL 11/29/2023 11:01 AM CDT [...] Jr., M.D. LAB BLOOD ADD-ON [facility] [place] [place] [address], [facility] [address] [place] [address] * (ABNORMAL) CBC with Differential, Blood (11/29/2023 [...] Johny Martínez Jr., M.D. LAB BLOOD ADD-ON [facility] 200 [place] [address], [facility] [address] [place] [address] * (ABNORMAL) Prothrombin Time (PT) (11/29/2023 8:22 [...] M.D. LAB BLOOD ADD-ON Performing Organization Address City/[facility]/ZIP Co de Phone Number [facility] 200 [place], [place] [phone] [place] [address] 200 [place] [address] * Sodium (11/29/2023 8:22 AM CDT) Sodium, S 142 135 - 145 mmol/L 11/29/2023 11:01 AM CDT DTL Blood (Blood, Venous) 11/29/2023 8:22 AM CDT 11/29/2023 9:01 AM CDT Johny Martínez Jr., M.D. LAB BLOOD ADD-ON Performing Organization Address City/[facility]/ZIP Co de Phone Number [facility] [address] [place], [place] [phone] [place] [address] 200 [place] [address] * Potassium (11/29/2023 8:22 AM CDT) Potassium, S 4.2 3.6 - 5.2 mmol/L 11/29/2023 11:01 AM CDT DTL Blood (Blood, Venous) 11/29/2023 8:22 AM CDT 11/29/2023 9:01 AM CDT Johny Martínez Jr., M.D. LAB BLOOD ADD-ON [facility] [address] [place], [place] [phone] [place] [address] 200 [place] [address] * (ABNORMAL) Glucose, Fasting (11/29/2023 8:22 AM CDT) Glucose, P 114(H) 70 - 100 mg/dL 11/29/2023 9:52 AM CDT DTL Last Intake 2 hr 11/29/2023 9:01 AM CDT DTL Blood (Blood, Venous) 11/29/2023 8:22 AM CDT 11/29/2023 9:01 AM CDT Johny Martínez Jr., M.D. LAB BLOOD NON AD D-ON [facility] [address] [facility] [address] [place] [address] * Creatinine with Estimated GFR (11/29/2023 8:22 AM CDT) Creatinine 1.17 0.74 - 1.35 mg/dL 11/29/2023 11:01 AM CDT DTL Estimated GFR (eGFR) 61 >=60 mL/min/BSA 11/29/2023 11:01 AM CDT DTL Comment: Estimated GFR calculated using the 2020 CKD_EPI creatinine equation. Blood (Blood, Venous) 11/29/2023 8:22 AM CDT 11/29/2023 9:01 AM CDT Johny Martínez Jr., M.D. LAB BLOOD ADD-ON [facility] [address] [place], [place] [phone] [place] [address] [facility] [address] [place] [address] * Albumin (11/29/2023 8:22 AM CDT) Albumin, S 3.9 3.5 - 5.0 g/dL 11/29/2023 11:01 AM CDT DTL Blood (Blood, Venous) 11/29/2023 8:22 AM CDT 11/29/2023 9:01 AM CDT Johny Martínez Jr., M.D. 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
--- OUTSIDE RECORDS SUMMARY | 2024-01-16 10:15 | XMS_ITS | Encounter Summary ---
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 200 [place] [address] [facility] Referral ID Status Reason Start Date Expiration Date Visits Re quested Visits Authorized [id number] Closed 11/27/2023 11/26/2024 1 1 Encounter Details Date Type Department Care Team (Latest Contact Info) Description 11/27/2023 Clinical Communication Department of Cardiovascular Medicine in [place], [place] [address] [place] [phone] Johny Martínez Jr., M.D. [address] [place] [phone] Social History Tobacco Use Types Packs/Day Years [...] week 03/21/2021 How often do you attend [facility] or mandaeism services? More than 4 times per year 03/21/2021 Do you belong to any clubs o r organizations such as nondenominational groups, unions, fraternal or athletic groups, or [...] at all 08/16/2023 [facility] - Occupational Stress Questionnaire Answer Date [...] your living situation today? I have a [facility] place to live 08/16/2023 Education Answer Date Recorded What is the highest level of school you have completed or the highest degree you have received? Master's degree (e.g., MA, MS, Fanny, MEd, CUSTODIAL WORKER, [employer]) 12/25/2020 Sex and Gender Information Value Date Recorded Sex Assigned at Male 08/16/2023 8:01 PM FRONT FACER Gender Identity Male 12/22/2017 5:18 AM CDT Sexual Orientation Straight 12/22/2017 5: 18 AM CDT documented as of this encounter Plan of Treatment Upcoming Encounters Date Type Department Care Team (Latest Contact Info) Description 01/31/2024 9:15 AM CDT Ancillary Procedure Department of Ophthalmology in [place], [place] [address] [place] [address] 01/31/2024 9:45 AM CDT Comprehensive Visit Department of Ophthalmology in [place], [place] [address] [place] [address] David Zeng M.D. [address] [place] [address] documented as of this encounter Results * [...] estimated ejection fraction range 50% - 55% (zefk-qq-hbnz variability). 2. Status post 27mm St. Tru [...] graphics), estimated ejectionfraction range 50% - 55% (zidc-kx-vqgx variability). 2. Status post 27mm St. Tru [...] CDT) Ventricular Rate ECG/Min 81 BPM MUSE [place] Interval 136 ms MUSE QRSD Interval 150 ms MUSE QT Interval 416 ms MUSE QTC Interval 483 ms MUSE R [place] -61 degrees MUSE T Wave [place] 51 degrees MUSE 11/29/2023 8:39 AM CDT [...] Jr., M.D. ECG ORDERABLES Performing Organization Address City/[facility] Co de Phone Number MUSE NA [...] M.D. LAB BLOOD ADD-ON Performing Organization Address [facility] Co de Phone Number [facility] [address] [place] [address], [facility] DTL [facility] [address] [place] [address] * Lipid Panel (11/29/2023 8:22 AM CDT) [...] Johny Martínez Jr., M.D. LAB BLOOD ADD-ON [place] [id number], [facility] 200 [place] [address] * (ABNORMAL) CBC with Differential, Blood (11/29/2023 [...] Johny Martínez Jr., M.D. LAB BLOOD ADD-ON [facility] [address] [place] [address], [facility] DTL [facility] [address] [place] [address] [facility]3] [address] [place] [address] * (ABNORMAL) Prothrombin Time (PT) (11/29/2023 8:22 [...] Johny Martínez Jr., M.D. LAB BLOOD ADD-ON [facility] [address] [place] [address] * Sodium (11/29/2023 8:22 AM CDT) Sodium, S 142 135 - 145 mmol/L 11/29/2023 11:01 AM CDT DT Blood (Blood, Venous) 11/29/2023 8:22 AM CDT 11/29/2023 9:01 AM CDT Johny Martínez Jr., M.D. LAB BLOOD ADD-ON Performing Organization Address [facility] Co de Phone Number [facility] [address] [place] [address] * Potassium (11/29/2023 8:22 AM CDT) Potassium, S 4.2 3.6 - 5.2 mmol/L 11/29/2023 11:01 AM CDT DTL Blood (Blood, Venous) 11/29/2023 8:22 AM CDT 11/29/2023 9:01 AM CDT Johny Martínez Jr., M.D. LAB BLOOD ADD-ON Performing Organization Address City/[facility]/ZIP Co de Phone Number [facility] [address] 200 [place] [address] * (ABNORMAL) Glucose, Fasting (11/29/2023 8:22 AM CDT) Glucose, P 114(H) 70 - 100 mg/dL 11/29/2023 9:52 AM CDT DTL Last Intake 2 hr 11/29/2023 9:01 AM CDT DTL Blood (Blood, Venous) 11/29/2023 8:22 AM CDT 11/29/2023 9:01 AM CDT Johny Martínez Jr., M.D. LAB BLOOD NON AD D-ON [facility] 200 [place], [place] [phone] [place] [address] [facility] 200 [place] [address] * Creatinine with Estimated GFR (11/29/2023 8:22 AM CDT) Creatinine 1.17 0.74 - 1.35 mg/dL 11/29/2023 11:01 AM CDT DTL Estimated GFR (eGFR) 61 >=60 mL/min/BSA 11/29/2023 11:01 AM CDT DTL Comment: Estimated GFR calculated using the 2020 CKD_EPI creatinine equation. Blood (Blood, Venous) 11/29/2023 8:22 AM CDT 11/29/2023 9:01 AM CDT Johny Martínez Jr., M.D. LAB BLOOD ADD-ON [facility] 200 [place] [address], [facility] 200 [place] [address] * Albumin (11/29/2023 8:22 AM CDT) Albumin, S 3.9 3.5 - 5.0 g/dL 11/29/2023 11:01 AM CDT DTL Blood (Blood, Venous) 11/29/2023 8:22 AM CDT 11/29/2023 9:01 AM CDT Johny Martínez Jr., M.D. 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
--- OUTSIDE RECORDS SUMMARY | 2024-01-16 10:15 | XMS_ITS | Encounter Summary ---
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 [address] [place] [address] [facility] Referral ID Status Reason Start Date Expiration Date Visits Re quested Visits Authorized [id number] Closed 11/27/2023 11/26/2024 1 1 Encounter Details Date Type Department Care Team (Latest Contact Info) Description 11/29/2023 9:15 AM CDT - 11/29/2023 11:59 PM CDT Hospital Encounter Department of Cardiovascular Diseases in [place], [place] [address] [place] [address] Johny Martínez Jr., M.D. 200 [place] [address] Prosthesis Mitral Valve; Prosthesis Aortic Valve; Aneurysm [...] week 03/21/2021 How often do you attend [facility] or jewish services? More than 4 times per year [...] and heating? Not hard at all 08/16/2023 [facility] [place] [facility] - Occupational Stress [...] your living situation today? I have a [facility] place to live 08/16/2023 Education Answer Date Recorded What is the highest level of school you have completed or the highest degree you have received? Master's degree (e.g., MA, MS, Fanny, MEd, NETWORK PROJECT MANAGER, [employer]) 12/25/2020 Sex and Gender Information Value Date Recorded Sex Assigned at Male 08/16/2023 8:01 PM FAMILY DAY CARE WORKER Gender Identity Male 12/22/2017 5:18 AM CDT [...] CDT Ancillary Procedure Department of Ophthalmology in [place], [place] [address] [place] [address] 01/31/2024 9:45 AM CDT Comprehensive Visit Department of Ophthalmology in [place], [place] [address] [place] [address] David Zeng M.D. [address] [place] [address] documented as of this encounter Procedures Procedure [...] estimated ejection fraction range 50% - 55% (yxvi-xk-mjgb variability). 2. Status post 27mm St. Tru [...] graphics), estimated ejectionfraction range 50% - 55% (gmod-hc-pzil variability). 2. Status post 27mm St. Tru [...] (HCC) documented in this encounter Care Teams Director Security Risk Management Relationship Specialty Start Date End Date Elsewhere, Pcp PCP - General Family Medicine 03/24/21 documented as of this encounter
--- OUTSIDE RECORDS SUMMARY | 2024-01-16 10:15 | XMS_ITS | Encounter Summary ---
Author Name Unknown Organization [facility] Address [address] [place] [address] Care Team Providers Care Bicycle Service Technician Name Role Phone Elsewhere, Pcp Primary Care Provider Unavailabl e Encounter Details Date Type Department Care Team (Late st Contact Info) Description 12/05/2006 Historical Ophthalmology RST OPH Ranjit Mcdonald M.D. Social History Tobacco Use Types Packs/Day Years Used Date Smoking Tobacco: Never Assessed Sex and Gender Information Value Date Recorded Sex Assigned at Male 08/16/2023 8:01 PM DIRECTOR CONSUMER AFFAIRS Gender Identity Male 12/22/2017 5:18 AM CDT [...] (myopia, presbyopia). CDM Reports - EYEGEN Id: [id number] Status: Fnl documented in this encounter Plan of Treatment Upcoming Encounters Date Type Department Care Team (Latest Contact Info) Description 01/31/2024 9:15 AM CDT Ancillary Procedure Department of Ophthalmology in [place], [place] [address] [place] [address] 01/31/2024 9:45 AM CDT Comprehensive Visit Department of Ophthalmology in [place], [place] [address] [place] [address] David Zeng M.D. [address] [place] [address] documented as of this encounter Visit Diagnoses Not on filedocumented in this encounter Additional Health Concerns Infection Onset Date Last Indicated Resolved Time COVID19 Pending 03/22/2021 03/22/2021 03/22/2021 5 :21 PM CDT COVID19 Pending 04/20/2021 04/20/2021 04/20/2021 1 1:46 AM CDT documented as of this encounter Care Teams Bicycle Service Technician Relationship Specialty Start Date End Date Elsewhere, Pcp PCP - General Family Medicine 03/24/21 documented as of this encounter
--- OUTSIDE RECORDS SUMMARY | 2024-01-16 10:15 | XMS_ITS | Encounter Summary ---
Author Name Unknown Organization [facility] Address [address] [place] [address] Care Team Providers Care Dialysis Chief Equipment Technician Name Role Phone Elsewhere, Pcp Primary Care Provider Unavailabl e Encounter Details Date Type Department Care Team (Late st Contact Info) Description 11/26/2007 Historical Ophthalmology RST OPH Ranjit Mcdonald M.D. Social History Tobacco Use Types Packs/Day Years Used Date Smoking Tobacco: Never Assessed Sex and Gender Information Value Date Recorded Sex Assigned at Male 08/16/2023 8:01 PM ELECTRONICS ASSEMBLER Gender Identity Male 12/22/2017 5:18 AM CDT [...] (myopia, presbyopia). CDM Reports - EYEGEN Id: [id number] Status: Fnl documented in this encounter Plan of Treatment Upcoming Encounters Date Type Department Care Team (Latest Contact Info) Description 01/31/2024 9:15 AM CDT Ancillary Procedure Department of Ophthalmology in [place], [place] [address] [place] [address] 01/31/2024 9:45 AM CDT Comprehensive Visit Department of Ophthalmology in [place], [place] [address] [place] [address] David Zeng M.D. [address] [place] [address] documented as of this encounter Visit Diagnoses Not on filedocumented in this encounter Additional Health Concerns Infection Onset Date Last Indicated Resolved Time COVID19 Pending 03/22/2021 03/22/2021 03/22/2021 5 :21 PM CDT COVID19 Pending 04/20/2021 04/20/2021 04/20/2021 1 1:46 AM CDT documented as of this encounter Care Teams Dialysis Chief Equipment Technician Relationship Specialty Start Date End Date Elsewhere, Pcp PCP - General Family Medicine 03/24/21 documented as of this encounter
--- OUTSIDE RECORDS SUMMARY | 2024-01-16 10:15 | XMS_ITS | Encounter Summary ---
Author Name Unknown Organization [facility] Address [address] [place] [address] Care Team Providers Care Laborer Prestressed Concrete Name Role Phone Elsewhere, Pcp Primary Care Provider Unavailabl e Encounter Details Date Type Department Care Team (Late st Contact Info) Description 12/28/2015 Historical Ophthalmology RST OPH Janey Torres O.D. [address] [place] [address] Social History Tobacco Use Types Packs/Day Years Used Date Smoking Tobacco: Never Assessed Sex and Gender Information Value Date Recorded Sex Assigned at Male 08/16/2023 8:01 PM BALCONY WORKER Gender Identity Male 12/22/2017 5:18 AM [...] (myopia, presbyopia). CDM Reports - EYEGEN Id: [id number] Status: Fnl documented in this encounter Plan of Treatment Upcoming Encounters Date Type Department Care Team (Latest Contact Info) Description 01/31/2024 9:15 AM CDT Ancillary Procedure Department of Ophthalmology in [place], [place] [address] [place] [address] 01/31/2024 9:45 AM CDT Comprehensive Visit Department of Ophthalmology in [place], [place] [address] [place] [address] David Zneg M.D. [address] [place] [address] documented as of this encounter Visit Diagnoses Not on filedocumented in this encounter Additional Health Concerns Infection Onset Date Last Indicated Resolved Time COVID19 Pending 03/22/2021 03/22/2021 03/22/2021 5 :21 PM CDT COVID19 Pending 04/20/2021 04/20/2021 04/20/2021 1 1:46 AM CDT documented as of this encounter Care Teams Laborer Prestressed Concrete Relationship Specialty Start Date End Date Elsewhere, Pcp PCP - General Family Medicine 03/24/21 documented as of this encounter
--- OUTSIDE RECORDS SUMMARY | 2024-01-16 10:15 | XMS_ITS | Encounter Summary ---
Author Name Unknown Organization [facility] Address [address] [place] [address] Care Team Providers Care Manager Spa Name Role Phone Elsewhere, Pcp Primary Care Provider Unavailabl e Encounter Details Date Type Department Care Team (Late st Contact Info) Description 01/10/2013 Historical Ophthalmology RST OPH Janey Torres O.D. [address] [place] [address] Social History Tobacco Use Types Packs/Day Years Used Date Smoking Tobacco: Never Assessed Sex and Gender Information Value Date Recorded Sex Assigned at Male 08/16/2023 8:01 PM HEAT TREATING FURNACE TENDER Gender Identity Male 12/22/2017 5:18 AM CDT [...] Refractive error (myopia, presbyopia). CDM Reports - EYEIntroFly Id: [id number] Status: Fnl documented in this encounter Plan of Treatment Upcoming Encounters Date Type Department Care Team (Latest Contact Info) Description 01/31/2024 9:15 AM CDT Ancillary Procedure Department of Ophthalmology in [place], [place] [address] [place] [address] 01/31/2024 9:45 AM CDT Comprehensive Visit Department of Ophthalmology in [place], [place] [address] [place] [address] David Zeng M.D. [address] [place] [address] documented as of this encounter Visit Diagnoses Not on filedocumented in this encounter Additional Health Concerns Infection Onset Date Last Indicated Resolved Time COVID19 Pending 03/22/2021 03/22/2021 03/22/2021 5 :21 PM CDT COVID19 Pending 04/20/2021 04/20/2021 04/20/2021 1 1:46 AM CDT documented as of this encounter Care Teams Manager Spa Relationship Specialty Start Date End Date Elsewhere, Pcp PCP - General Family Medicine 03/24/21 documented as of this encounter
--- OUTSIDE RECORDS SUMMARY | 2024-01-16 10:15 | XMS_ITS | Encounter Summary ---
Author Name Unknown Organization [facility] Address [address] [place] [address] Care Team Providers Care Trapeze Performer Name Role Phone Elsewhere, Pcp Primary Care Provider Unavailabl e Encounter Details Date Type Department Care Team (Late st Contact Info) Description 01/10/2006 Historical Ophthalmology RST OPH Ranjit Mcdonald M.D. Social History Tobacco Use Types Packs/Day Years Used Date Smoking Tobacco: Never Assessed Sex and Gender Information Value Date Recorded Sex Assigned at Male 08/16/2023 8:01 PM ELECTRICAL INTEGRATOR Gender Identity Male 12/22/2017 5:18 AM CDT [...] (myopia, presbyopia). CDM Reports - EYEGEN Id: [id number] Status: Fnl documented in this encounter Plan of Treatment Upcoming Encounters Date Type Department Care Team (Latest Contact Info) Description 01/31/2024 9:15 AM CDT Ancillary Procedure Department of Ophthalmology in [place], [place] [address] [place] [address] 01/31/2024 9:45 AM CDT Comprehensive Visit Department of Ophthalmology in [place], [place] [address] [place] [address] David Zeng M.D. [address] [place] [address] documented as of this encounter Visit Diagnoses Not on filedocumented in this encounter Additional Health Concerns Infection Onset Date Last Indicated Resolved Time COVID19 Pending 03/22/2021 03/22/2021 03/22/2021 5 :21 PM CDT COVID19 Pending 04/20/2021 04/20/2021 04/20/2021 1 1:46 AM CDT documented as of this encounter Care Teams Trapeze Performer Relationship Specialty Start Date End Date Elsewhere, Pcp PCP - General Family Medicine 03/24/21 documented as of this encounter
--- OUTSIDE RECORDS SUMMARY | 2024-01-16 10:15 | XMS_ITS | Encounter Summary ---
Author Name Unknown Organization [facility] Address [address] [place] [address] Care Team Providers Care Machine I Engraver Name Role Phone Elsewhere, Pcp Primary Care Provider Unavailabl e Encounter Details Date Type Department Care Team (Late st Contact Info) Description 12/10/2008 Historical Ophthalmology RST OPH Ranjit Mcdonald M.D. 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 CDM Reports - EYEGEN Id: [id number] Status: Fnl documented in this encounter Plan of Treatment Upcoming Encounters Date Type Department Care Team (Latest Contact Info) Description 01/31/2024 9:15 AM CDT Ancillary Procedure Department of Ophthalmology in [place], [place] [address] [place] [address] 01/31/2024 9:45 AM CDT Comprehensive Visit Department of Ophthalmology in [place], [place] [address] [place] [address] David Zeng M.D. [address] [place] [address] documented as of this encounter Visit Diagnoses Not on filedocumented in this encounter Additional Health Concerns Infection Onset Date Last Indicated Resolved Time COVID19 Pending 03/22/2021 03/22/2021 03/22/2021 5 :21 PM CDT COVID19 Pending 04/20/2021 04/20/2021 04/20/2021 1 1:46 AM CDT documented as of this encounter Care Teams Machine I Engraver Relationship Specialty Start Date End Date Elsewhere, Pcp PCP - General Family Medicine 03/24/21 documented as of this encounter
--- OUTSIDE RECORDS SUMMARY | 2024-01-16 10:16 | XMS_ITS | Encounter Summary ---
Author Name Unknown Organization [facility] Address [address] [place] [address] Care Team Providers Care Billet Inspector Name Role Phone Elsewhere, Pcp Primary Care Provider Unavailabl e Encounter Details Date Type Department Care Team (Late st Contact Info) Description 03/28/2005 Historical Ophthalmology RST OPH Sim House M.D. Social History Tobacco Use Types Packs/Day Years Used Date Smoking Tobacco: Never Assessed Sex and Gender Information Value Date Recorded Sex Assigned at Male 08/16/2023 8:01 PM FRYER LINE HELPER Gender Identity Male 12/22/2017 5:18 AM [...] glaucoma. Plan: [facility] in [facility] right eye #2 Cataract, both eyes. [...] Refractive error (myopia, presbyopia). CDM Reports - EYESpotOn Id: [id number] Status: Fnl documented in this encounter Plan of Treatment Upcoming Encounters Date Type Department Care Team (Latest Contact Info) Description 01/31/2024 9:15 AM CDT Ancillary Procedure Department of Ophthalmology in [place], [place] [address] [place] [address] 01/31/2024 9:45 AM CDT Comprehensive Visit Department of Ophthalmology in [place], [place] [address] [place] [address] David Zeng M.D. [address] [place] [address] documented as of this encounter Visit Diagnoses Not on filedocumented in this encounter Additional Health Concerns Infection Onset Date Last Indicated Resolved Time COVID19 Pending 03/22/2021 03/22/2021 03/22/2021 5 :21 PM CDT COVID19 Pending 04/20/2021 04/20/2021 04/20/2021 1 1:46 AM CDT documented as of this encounter Care Teams Billet Inspector Relationship Specialty Start Date End Date Elsewhere, Pcp PCP - General Family Medicine 03/24/21 documented as of this encounter
--- OUTSIDE RECORDS SUMMARY | 2024-01-16 10:16 | XMS_ITS | Encounter Summary ---
Author Name Unknown Organization [facility] Address [address] [place] [address] Care Team Providers Care Turret Lathe Set Up Operator Name Role Phone Elsewhere, Pcp Primary Care Provider Unavailabl e Encounter Details Date Type Department Care Team (Late st Contact Info) Description 03/11/2005 Historical Ophthalmology RST OPH Sim House M.D. Social History Tobacco Use Types Packs/Day Years Used Date Smoking Tobacco: Never Assessed Sex and Gender Information Value Date Recorded Sex Assigned at Male 08/16/2023 8:01 PM BUSINESS EXECUTIVE Gender Identity Male 12/22/2017 5:18 AM CDT [...] to wanting a second opinion here at [facility]. 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 Plan: [facility] oct-[facility] in [facility] right eye #2 Cataract, both [...] Refractive error (myopia, presbyopia). [facility] Id: [id number] Status: Fnl documented in this encounter Plan of Treatment Upcoming Encounters Date Type Department Care Team (Latest Contact Info) Description 01/31/2024 9:15 AM CDT Ancillary Procedure Department of Ophthalmology in [place], [place] [address] [place] [address] 01/31/2024 9:45 AM CDT Comprehensive Visit Department of Ophthalmology in [place], [place] [address] [place] [address] David Zeng M.D. [address] [place] [address] documented as of this encounter Visit Diagnoses Not on filedocumented in this encounter Additional Health Concerns Infection Onset Date Last Indicated Resolved Time COVID19 Pending 03/22/2021 03/22/2021 03/22/2021 5 :21 PM CDT COVID19 Pending 04/20/2021 04/20/2021 04/20/2021 1 1:46 AM CDT documented as of this encounter Care Teams Turret Lathe Set Up Operator Relationship Specialty Start Date End Date Elsewhere, Pcp PCP - General Family Medicine 03/24/21 documented as of this encounter
--- OUTSIDE RECORDS SUMMARY | 2024-01-16 10:16 | XMS_ITS | Clinical Summary ---
Author Name Unknown Organization [employer] [facility] Address [place], [place] [address] Care Team Providers Care Mold Car Pusher Name Role Phone Caridad Vaca MD Primary Care Provider [phone] Social History Tobacco Use Types Packs/Day Years [...] 1 - PCV) 002 COVID-19 vaccine series ( season) 3 Influenza for age 65+ 05/19/2024 Care Teams Mold Car Pusher Relationship Specialty Start Date End Date Caridad Vaca MD [address] [place] [address] PCP - General Internal Medicine 11/28/17
--- OUTSIDE RECORDS SUMMARY | 2024-01-16 10:16 | XMS_ITS | Encounter Summary ---
Author Name Unknown Organization [facility] Address [address] [place] [address] Care Team Providers Care Station Cleaning Porter Name Role Phone Elsewhere, Pcp Primary Care Provider Unavailabl e Encounter Details Date Type Department Care Team (Late st Contact Info) Description 04/28/2005 Historical Ophthalmology RST OPH Sim House M.D. 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 - 04/28/2005 12:00 AM CDT Eye Postoperative MULTI-VISIT DOCUMENT This document contains multiple patient visits and is available for review in Document Viewer. CDM Reports - [facility] Id: [id number] Status: Fnl documented in this encounter Plan of Treatment Upcoming Encounters Date Type Department Care Team (Latest Contact Info) Description 01/31/2024 9:15 AM CDT Ancillary Procedure Department of Ophthalmology in [place], [place] [address] [place] [address] 01/31/2024 9:45 AM CDT Comprehensive Visit Department of Ophthalmology in [place], [place] [address] [place] [address] David Zeng M.D. [address] [place] [address] documented as of this encounter Visit Diagnoses Not on filedocumented in this encounter Additional Health Concerns Infection Onset Date Last Indicated Resolved Time COVID19 Pending 03/22/2021 03/22/2021 03/22/2021 5 :21 PM CDT COVID19 Pending 04/20/2021 04/20/2021 04/20/2021 1 1:46 AM CDT documented as of this encounter Care Teams Station Cleaning Porter Relationship Specialty Start Date End Date Elsewhere, Pcp PCP - General Family Medicine 03/24/21 documented as of this encounter
--- OUTSIDE RECORDS SUMMARY | 2024-01-16 10:16 | XMS_ITS | Encounter Summary ---
Author Name Unknown Organization [facility] Address [address] [place] [address] Care Team Providers Care Material Combiner Name Role Phone Elsewhere, Pcp Primary Care Provider Unavailabl e Encounter Details Date Type Department Care Team (Late st Contact Info) Description 02/23/2005 Historical Ophthalmology RST OPH Ranjit Mcdonald M.D. 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 [facility] Reports [facility] Id: [id number] Status: Fnl documented in this encounter Plan of Treatment Upcoming Encounters Date Type Department Care Team (Latest Contact Info) Description 01/31/2024 9:15 AM CDT Ancillary Procedure Department of Ophthalmology in [place], [place] [address] [place] [address] 01/31/2024 9:45 AM CDT Comprehensive Visit Department of Ophthalmology in [place], [place] [address] [place] [address] David Zeng M.D. [address] [place] [address] documented as of this encounter Visit Diagnoses Not on filedocumented in this encounter Additional Health Concerns Infection Onset Date Last Indicated Resolved Time COVID19 Pending 03/22/2021 03/22/2021 03/22/2021 5 :21 PM CDT COVID19 Pending 04/20/2021 04/20/2021 04/20/2021 1 1:46 AM CDT documented as of this encounter Care Teams Material Combiner Relationship Specialty Start Date End Date Elsewhere, Pcp PCP - General Family Medicine 03/24/21 documented as of this encounter
--- OUTSIDE RECORDS SUMMARY | 2024-01-16 10:16 | XMS_ITS | Encounter Summary ---
Author Name Unknown Organization [facility] Address [address] [place] [address] Care Team Providers Care Global Technical Writer Name Role Phone Elsewhere, Pcp Primary Care Provider Unavailabl e Encounter Details Date Type Department Care Team (Late st Contact Info) Description 08/22/2005 Historical Ophthalmology RST OPH Ranjit Mcdonald M.D. 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 - 08/22/2005 12:00 AM CST Eye General CHIEF COMPLAINT 6 [facility] glaucoma follow up HISTORY OF PRESENT ILLNESS Pt is here for a six month [facility] follow up. Pt feels his vision has [...] (myopia, presbyopia). CDM Reports - [facility] Id: [id number] Status: Fnl documented in this encounter Plan of Treatment Upcoming Encounters Date Type Department Care Team (Latest Contact Info) Description 01/31/2024 9:15 AM CDT Ancillary Procedure Department of Ophthalmology in [place], [place] [address] [place] [address] 01/31/2024 9:45 AM CDT Comprehensive Visit Department of Ophthalmology in [place], [place] [address] [place] [address] David Zeng M.D. [address] [place] [address] documented as of this encounter Visit Diagnoses Not on filedocumented in this encounter Additional Health Concerns Infection Onset Date Last Indicated Resolved Time COVID19 Pending 03/22/2021 03/22/2021 03/22/2021 5 :21 PM CDT COVID19 Pending 04/20/2021 04/20/2021 04/20/2021 1 1:46 AM CDT documented as of this encounter Care Teams Global Technical Writer Relationship Specialty Start Date End Date Elsewhere, Pcp PCP - General Family Medicine 03/24/21 documented as of this encounter
== END 2023-12-27 09:21 | disposition home or self-care (01) ==
LOC: NFLDREF 01-16 10:06
PROVIDERS: PCP Internal Medicine; Referring Provider Internal Medicine; Visit Provider Internal Medicine
DX: I25.10 Atherosclerotic heart disease of native coronary artery without angina pectoris (principal); I10 Essential (primary) hypertension; Z13.220 Encounter for screening for lipoid disorders
CPT/HCPCS: 80061

== ENCOUNTER 2024-01-09 11:00 | Outpatient (RCR) | payer MEDICARE, BC, SELFPAY ==
--- NOTE | 2023-12-26 12:02 | PT.OPEX ---
[facility] [place] [facility] Eval PT [facility] Outpatient Eval Start: 12/26/23 07:29 Freq: Status: Active Protocol: Document 12/26/23 07:29 LEXY (Rec: 12/26/23 11:59 LEXY [id number]) E-signed By Gabriel Ross PT Physical Therapy Outpatient Evaluation Insurance Information Insurance Name Medicare B,Blue [employer]/Blue Shield Medical Diagnosis Right buttock pain Right LE DVT Treating Diagnosis Right gluteal tightness Mild right gluteal weakness Referring MD [place] Subjective Subjective Pt. reports incidious onset of severe right LE/foot pain 6 weeks ago when walking. A DVT was found on US and he was started on blood thinners. He ended up going to [place] to see [facility] diver [facility] for some A-fib symptoms but they didn't feel like his symptoms were due to the blood clot. Fortunately he has gained normal painfree status again but he's hoping to prevent any future flare ups if it was due to musculoskeletal issues instead of the blood clot. He denies any recent LBP but feels like it may have been sciatic type pain he was having. No history of similar problems without lumbar or hip issues. Good overall health other than HTN and a heart valve problem. He walks daily for exercise normally. Pain Comments 0-1 Date of Last Physician Visit 12/07/23 Current Work Status Retired Preferred Name Eduardo Objective Other/Pertinent Objective LROM: WNL and painfree Hip ROM: WNL and symmetrical without pain SLR/SLUMP: Negative bilat. Palpation: mild/mod tightness of right gluteals strength: mild weakness of gluteals Assessment Assessment/Impression Objectively, pt. demonstrates; painfree and functional LROM for age without any symptom provocation; negative slump and SLR testing; functional and symmetrical hip ROM without pain; mild right gluteal tightness and weakness ; and mild right gluteal hypertonus with palpation. Pt. would benefit from skilled therapy working on a progressive HEP for core/ gluteal strengthening and hip/ gluteal/LE flexibility. Primary Functional Limitations walking Plan of Care Rehabilitation Potential Excellent Physical Therapy Goals 1. Pt. will be independent with HEP for self maintenance in 4 weeks. 2. Pt. will demonstrate improved gluteal/core strength in 4-8 weeks. 3. Pt. will be able to walk daily for exercise without any pain symptoms in 4-8 weeks. Coordination/Communication With Referral Source Treatment Plan/Direct Interventions Manual Therapy,Self-Care/Home Management,Therapeutic Exercises Frequency/Duration 2-4 visits over 4-8 weeks Patient Will Be Discharged From Therapy Independent w/HEP, Independently Progressing Evaluation Billing Complexity Low Certification Information Initial Certification Date 12/26/23 Ending Certification Date 03/25/24 Provider Signature Shows Agreement With POC & Medical Necessity Physician Signature & Date Requested Please Sign/Date Here Physician Comment/Change : Physician NPI Number #
== END 2024-04-05 15:11 | disposition home or self-care (01) ==
PROVIDERS: PCP Internal Medicine; Visit Provider Internal Medicine
DX: M79.18 Myalgia, other site (principal); I82.401 Acute embolism and thrombosis of unspecified deep veins of right lower extremity; R29.898 Other symptoms and signs involving the musculoskeletal system; Z51.89 Encounter for other specified aftercare
CPT/HCPCS: 97110; 97161

== ENCOUNTER 2024-01-10 20:59 | Outpatient (CLI) | payer MEDICARE, BC, SELFPAY ==
--- OUTSIDE RECORDS SUMMARY | 2024-01-10 21:02 | XMS_ITS | Referral Summary ---
Author Name Unknown Organization [facility] Address [address] [place] [id number] Care Team Providers Care Counselor Supervisor Name Role Phone Elsewhere, Pcp Primary Care Provider Unavailabl e Source Comments Patient records contain information from all sites at [facility]. For routine questions regarding patient records, call [phone] during business hours, M-F 8:00 AM - 5:00 PM Central Time. Record requests for emergency care only can be directed to [phone] at any time.[facility] Encounters Date Type Department Care Team Description 12/01/2023 Documentation Department of Cardiovascular Medicine in [place], [place] [address] [place] [address] Johny Martínez Jr., M.D. 11/29/2023 4:00 PM CDT Diagnostic Division of Pulmonary Medicine in [place], [place] [address] [place] [phone] Johny Martínez Jr., M.D. Fibrosis Pulmonary (HCC); Ectopy Atrial 11/29/2023 8:58 AM CDT - 11/29/2023 9:14 AM CDT Hospital Encounter Department of Radiology, [facility], in [place], [place] [address] [place] [address] Johny Martínez Jr., M.D. 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 from Last 3 Months Allergies No known active allergies Medications Medication Sig Dispensed Refills Start Date End Date Status allopurinol (ZYLOPRIM) 300 mg tablet Take 150 mg by mouth daily. 05/08/2013 Active hydroCHLOROthiazide (HYDRODIURIL) 25 mg tablet Take 25 mg by mouth daily. 07/01/2015 Active omeprazole (PriLOSEC) [address] capsule Take 20 mg by mouth daily. 03/08/2023 Active lisinopril (PRINIVIL,ZESTRIL) 0.625 mg tablet Take 10 mg by mouth daily. 01/10/2023 Active rosuvastatin (CRESTOR) 1.25 mg tablet Take 10 mg by mouth daily. 01/10/2023 Active metoprolol succinate (TOPROL-XL) 25 mg 24 hr tablet Take 25 mg by mouth daily. HAVE NOT STARTED YET- WAITING FOR APPT 11/29/23 11/23/2023 Active Xarelto 15 mg tablet Take 15 mg by mouth 2 (two) times a day with meals. 11/24/2023 Active acetaminophen (TYLENOL) 500 mg tablet Take 1,000 mg by mouth every 6 (six) hours as needed for pain. 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 0 03/15/2019 Combined Forms Age Related Cataract Bilateral Membrane Macula Epiretinal Bilateral 03/15/2019 Detachment Retinal With Multiple Defect Bilatera l 03/15/2019 Myopia Bilateral 03/15/2019 Presbyopia 03/15/2019 Abscess Abdominopelvic 05/13/2018 Pain Right Lower Quadrant 05/10/2018 Appendectomy Laparoscopic Status Post 05/10/2018 Abscess Intra Abdominal 05/10/2018 Coronary Artery Disease Of Coronary Artery Bypas s Graft 04/26/2018 Anticoagulant Therapy 04/26/2018 Hyperlipidemia 04/26/2018 Benign Prostatic Hyperplasia Without Obstruction 04/26/2018 Gout 04/26/2018 Herniorrhaphy Umbilical Status Post 04/26/2018 Appendicitis Acute 04/25/2018 Overview: Added automatically from request for surgery [id number] Prolonged QT Interval 11/25/2017 Replacement Aortic Valve Tissue 11/25/2017 Lung Interstitial Disease 11/07/2017 Pneumonitis Interstitial Usual 10/17/2017 Coronary Artery Disease Without Angina Pectoris 10/16/2017 Hypertension Essential Primary 12/26/2003 Gastroesophageal Reflux Disease NOS 12/26/2003 Resolved Problems Problem Noted Date Diagnosed Date Resolved Date Prosthesis Mitral Valve 03/13/202302/17 Immunizations Name Administration Dates Next Due HZV (ZOSTAVAX) 03/12/2008 Influenza (IM) Preservative Free 10/30/2009 Influenza Split 06/18/2011, 7,06/18/2005,2003,07/19/2003,07/19/2002 Influenza, Seasonal, Injectable 07/14/2006 PPSV23(Discontinued) 02/13/2008 SARS-COV-2 (COVID-19) - PFIZ ER BIVALENT TS(Discontinued)(12 YEARS OR OLDER) 08/25/2022 Td, (Adult) Unspecified 09/18/2002 Tdap 05/08/2013 influenza high dose (65 year s or older) (PF) 07/26/2017,07/06/2010 Social History Tobacco Use Types Packs/Day Years Used Date Smoking Tobacco: Never Passive Smoke Exposure: Past Smokeless Tobacco: Never Tobacco Cessation:Counseling Given: Not Answered Passive Exposure Comments:as a young child Alcohol Use Standard Drinks/Week Comments Yes 5 (1 standard drink = 0.6 oz pur e alcohol) Social Connection and Isolat ion Panel [NHANES] Answer Date Recorded In a typical week, how many times do you talk on the phone with family, friends, or neighbors? Three times a week 03/21/2021 How often do you get togethe r with friends or relatives? Once a week 03/21/2021 How often do you attend chur or episcopal services? More than 4 times per year 03/21/2021 Do you belong to any clubs o r organizations such as holiness groups, unions, fraternal or athletic groups, or school groups? Yes 03/21/2021 How often do you attend meet ings of the clubs or organizations you belong to? More than 4 times per year 03/21/2021 Are you , , di vorced, , never , or living with a partner? Living with partner 03/21/2021 AUDIT-C Answer Date Recorded Q1: How often do you have a drink containing alcohol? 4 or more times a week 03/21/2021 Q2: How many drinks containi ng alcohol do you have on a typical day when you are drinking? 1 or 2 Q3: How often do you have si x or more drinks on one occasion? Never 03/21/2021 Overall Financial Resource Strain (CARDIA) Answe r Date Recorded How hard is it for you to pa y for the very basics like food, housing, medical care, and heating? Not hard at all 08/16/2023 [facility] of Occupat ional Health - Occupational Stress Questionnaire Answer Date Recorded Do you feel stress - tense, restless, nervous, or anxious, or unable to sleep at night because your mind is troubled all the time - these days? Not at all 03/21/2021 Exercise Vital Sign Answer Date Recorde d On average, how many days pe r week do you engage in moderate to strenuous exercise (like a brisk walk)? 4 days 08/16/2023 On average, how many minutes do you engage in exercise at this level? 40 min 08/16/2023 Hunger Vital Sign Answer Date Recorded Within the past 12 months, y ou worried that your food would run out before you got the money to buy more. Never true 08/16/20 Within the past 12 months, t he food you bought just didn't last and you didn't have money to get more. Never true 08/16/2023 PRAPARE - Transportation Answer Date Re corded In the past 12 months, has l ack of transportation kept you from medical appointments or from getting medications? No 07/20 In the past 12 months, has l ack of transportation kept you from meetings, work, or from getting things needed for daily living? No 08/16/2023 Nutrition Answer Date Recorded Nutrition: EVOO Fat Source Yes 03/21 On average, how many serving s of fruits and vegetables do you eat per day (serving size is equal to 1 cup or approximately the size of a tennis ball)? 4-5 03/21/2021 Dental Answer Date Recorded Dental: Regular Dentist Yes 09/26/19 Employment Answer Date Recorded Employment status Retired 08/16/2023 Housing Stability Answer Date Recorded What is your living situation today? I have a [facility] place to live 08/16/2023 Education Answer Date Recorded What is the highest level of school you have completed or the highest degree you have received? Master's degree (e.g., MA, MS, Fanny, MEd, [employer], [employer]) 12/25/2020 Sex and Gender Information Value Date Recorded Sex Assigned at Male 08/16/2023 8:01 PM HEALTH COMMUNICATIONS SPECIALIST Gender Identity Male 12/22/2017 5:18 AM CDT Sexual Orientation Straight 12/22/2017 5: 18 AM CDT Last Filed Vital Signs Vital Sign Reading Time Taken Comments Blood Pressure 143/84 11/29/2023 2:05 PM CDT Pulse 78 11/29/2023 2:05 PM CDT Temperature 36.8 ??C (98.2 ??F) 04/21/2021 7:54 AM CD T Respiratory Rate 15 04/21/2021 8:40 AM CDT Oxygen Saturation 99% 04/21/2021 8:40 AM CDT Inhaled Oxygen Concentration - - Weight 69 kg (152 lb 1.9 oz) 11/29/2023 2:05 PM CDT Height 167 cm (5' 5.75) 11/29/2023 2:05 PM CDT Body Mass Index 24.74 11/29/2023 2:05 PM CDT Plan of Treatment Upcoming Encounters Date Type Department Care Team (Latest Contact Info) Description 01/24/2024 10:30 AM CDT Ancillary Procedure Department of Ophthalmology in [place], [place] [address] [place] [address] 01/24/2024 11:00 AM CDT Comprehensive Visit Department of Ophthalmology in [place], [place] [address] [place] [address] David Zeng M.D. [address] [place] [address] Medical Devices Implanted Type Area Concessionist Device Identifier Shelf Expiration Date Model / Serial / Lot Valve Trifecta 27mm Gt - Peace [id number] Implanted:Qty: 1 on 11/20/[address] Cardiac Val[address] Aorta [employer] (a Division of [employer]) Description:Device Manufactu rer - [employer]. Body Location - Other. Aortic. Device Status Text - [id number]. Patch Dual Mesh 1mm 7.5 X 10 - [id number] Implanted:Qty: 1 on 10/29/2009 Mesh or Patch Other/Legacy - See Implant Description [place] Description:Device Manufactu rer - [employer] Body Location - Other. Not Applicable. Device Status Text - [id number]. Misc Other- 0 Implanted:10/19 (Quantity not on file) Misc Other Mouth Description:Tooth implant Lens Tcn [id number] Bicnvx +14.0d - [id number] - [id number] Implanted:Qty: 1 on 03/24/2021 by David Zeng M.D. at [facility] [employer] Ocular Lens Left: Eye [employer] (Previously SHELIA) 10/12/2024 [id number] / [id number] / Lens Tcn [id number] Bicnvx +13.5d - [id number] - [id number] Implanted:Qty: 1 on 04/21/2021 by David Zeng M.D. 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) ECG Routine 11/29/2023 8:39 AM CDT Prosthesis Mitral Valve Prosthesis Aortic Valve 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) NT-PRO B-TYPE NATRIURETIC PEPTIDE (BNP), S Routine 11/29/2023 8:22 AM CDT Prosthesis Mitral Valve Prosthesis Aortic Valve 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) LIPID PANEL, S Routine 11/29/2023 8:22 AM CDT Prosthesis Mitral Valve Prosthesis Aortic Valve 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) CBC WITH DIFFERENTIAL, B Routine 11/29/2023 8:22 AM CDT Prosthesis Mitral Valve Prosthesis Aortic Valve 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) PROTHROMBIN TIME (PT), P Routine 11/29/2023 8:22 AM CDT Prosthesis Mitral Valve Prosthesis Aortic Valve 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) SODIUM, S/P Routine 11/29/2023 8:22 AM CDT Prosthesis Mitral Valve Prosthesis Aortic Valve 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) POTASSIUM, S/P Routine 11/29/2023 8:22 AM CDT Prosthesis Mitral Valve Prosthesis Aortic Valve 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) GLUCOSE, FASTING, S/P Routine 11/29/2023 8:22 AM CDT Prosthesis Mitral Valve Prosthesis Aortic Valve 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) CREATININE WITH EGFR, S/P Routine 11/29/2023 8:22 AM CDT Prosthesis Mitral Valve Prosthesis Aortic Valve 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) ALBUMIN, S/P Routine 11/29/2023 8:22 AM CDT Prosthesis Mitral Valve Prosthesis Aortic Valve 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) PUL HOME OVERNIGHT OXIMETRY Routine 11/29/2023 Fibrosis Pulmonary (HCC) Ectopy Atrial OUTSIDE DX CHEST Routine 11/23/2023 3:40 PM HEALTH COMMUNICATIONS SPECIALIST OUTSIDE US Routine 11/23/2023 8:45 AM HEALTH COMMUNICATIONS SPECIALIST from Last 3 Months Results * (TTE) 2D ECHO DOPPLER COLOR (11/29/2023 10:42 AM CDT) Ejection Fraction 50 MC CV EIMS Proximal Ascending Aorta 38 MC CV EIMS Mid-Ascending Aorta 38 MC CV EIMS Wall Motion Score Index 1.25 MC CV EIMS LV Mass Index 82 MC CV EIMS LV End-Diastolic Diameter 50 MC CV EIMS LV End-Systolic Diameter 34 MC CV EIMS MV E Velocity 1 MC CV EIMS MV A Velocity 1.1 MC CV EIMS MV E/A 0.91 MC CV EIMS MV e' Velocity Lateral 0.06 MC CV EIMS MV E/e' Lateral 16.7 MC CV EIMS Left ventricular stroke volume index 56 MC CV EIMS Cardiac Output 7.21 MC CV EIMS Cardiac Index 4.05 MC CV EIMS LV Interventricular Septal Wall Thickness 9 MC CV EIMS LV Posterior Wall Thickness 8 MC CV EIMS LV Relative Wall Thickness 32 MC CV EIMS RV 4-Chamber Basal Diameter 45 MC CV EIMS RV 4-Chamber Mid Diameter 42 MC CV EIMS Tricuspid Annular S? 0.12 MC CV EIMS TR Vmax 2.97 MC CV EIMS RA Pressure 5 MC CV EIMS RV Systolic Pressure 40 MC CV EIMS Estimated diastolic pulmonary artery pressure 10 MC CV EIMS AV mean gradient 6 MC CV EIMS Aortic valve area 2.86 MC CV EIMS Aortic Valve Area Index 1.61 MC CV EIMS Aortic Valve Dimensionless Index 0.58 MC CV EIMS MV mean gradient 3 MC CV EIMS TV Regurgitant Volume 36 MC CV EIMS Aortic Valve Systolic Peak Velocity 1.6 MC CV EIMS Anatomical Region Laterality Modality Echocardiography 11/29/2023 9:34 AM CDT Impressions 11/29/2023 11:28 AM CDT Status post coronary artery bypass graft(s) x1 (11/20/2017). Last full echocardiogram performed 03/13/2023. LEFT VENTRICLE:Normal left ventricular chamber size. Calculated 2-D monoplane volumetric left ventricular ejection fraction 53%. Estimated left ventricular ejection fraction range 50% - 55%. Left ventricular stroke volume index 56 ml/m2. Regional wall motion abnormalities were present (see wall motion graphics). Indeterminate left ventricular filling pressure. RIGHT VENTRICLE:Mildly enlarged right ventricular chamber size. Normal right ventricular systolic function. Estimated right ventricular systolic pressure 40 mmHg (right atrial pressure of 5 mmHg). ATRIA:Bi-atrial enlargement. 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 Aortic valve prosthetic orifice area by Doppler: 2.86 cm2 No aortic valve prosthetic regurgitation. No aortic valve periprosthetic regurgitation. Calcified mitral annulus. Mitral valve diastolic mean Doppler gradient 3 mmHg (heart rate 70 BPM). Mitral valve area by continuity equation 3.34 cm2. Mild mitral valve regurgitation. Normal pulmonary valve. Normal pulmonary valve systolic velocities. Mild pulmonary valve regurgitation. Tricuspid annulus dilatation. Moderate tricuspid valve regurgitation. Tricuspid regurgitant volume (PISA) 36 ml. Tricuspid regurgitation ERO (PISA) 0.39 cm2. OTHER ECHO FINDINGS:Normal inferior vena cava size with normal inspiratory collapse (>50%). Normal mid ascending aorta diameter of 38 mm. Normal abdominal aorta Doppler flow pattern. No intracardiac mass or thrombus, but the left atrial appendage cannot be visualized adequately with transthoracic echo to exclude thrombus in this location. No ??pericardial effusion. For the complete report, see the Order-Level Documents. Narrative 11/29/2023 11:28 AM CDT For the complete report, see the Order-Level Documents. Hemodynamics Heart Rate: 78 BPM Blood Pressure: 150 / 84 mmHg ECG: Sinus rhythm with ectopics Final Impressions 1. Normal left ventricular chamber size, regional wall motion abnormalities were present (see wall motion graphics), estimated ejection fraction range 50% - 55% ([id number] variability). 2. 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 Aortic valve prosthesis systolic mean Doppler gradient 6 mmHg. No evidence of prosthetic or periprosthetic regurgitation. 4. Calcified mitral annulus , mean Doppler gradient 3 mmHg (heart rate 70 BPM), mild regurgitation. 5. Moderate tricuspid valve regurgitation, ERO (PISA) 0.39 cm2, regurgitant volume (PISA) 36 ml. 6. Mildly enlarged right ventricular chamber size, normal systolic function, estimated right ventricular systolic pressure 40 mmHg (right atrial pressure of 5 mmHg). 7. Normal inferior vena cava size with normal inspiratory collapse (>50%). 8. Compared to the report of 03/13/2023 no significant change has occurred. Side by side comparison of images performed The inferior and inferior lateral wall motion abnormalities have been variably reported over previous multiple echocardiograms. Procedure Note Edward Lin M.D. - 11/29/2023 For the complete report, see the Order-Level Documents. Hemodynamics Heart Rate: 78 BPM Blood Pressure: 150 / 84 mmHg ECG: Sinus rhythm with ectopics Final Impressions 1. Normal left ventricular chamber size, regional wall motionabnormalities were present (see wall motion graphics), estimated ejectionfraction range 50% - 55% (smys-nj-[id number] variability). 2. 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 Aortic valve prosthesis systolic mean Doppler gradient 6 mmHg. Noevidence of prosthetic or periprosthetic regurgitation. 4. Calcified mitral annulus , mean Doppler gradient 3 mmHg (heart rate 70BPM), mild regurgitation. 5. Moderate tricuspid valve regurgitation, ERO (PISA) 0.39 cm2,regurgitant volume (PISA) 36 ml. 6. Mildly enlarged right ventricular chamber size, normal systolicfunction, estimated right ventricular systolic pressure 40 mmHg (rightatrial pressure of 5 mmHg). 7. Normal inferior vena cava size with normal inspiratory collapse(>50%). 8. Compared to the report of 03/13/2023 no significant change hasoccurred. Side by side comparison of images performed The inferior andinferior lateral wall motion abnormalities have been variably reportedover previous multiple echocardiograms. Findings Status post coronary artery bypass graft(s) x1 (11/20/2017). Last fullechocardiogram performed 03/13/2023. LEFT VENTRICLE:Normal left ventricular chamber size. Calculated 2-Dmonoplane volumetric left ventricular ejection fraction 53%. Estimatedleft ventricular ejection fraction range 50% - 55%. Left ventricularstroke volume index 56 ml/m2. Regional wall motion abnormalities werepresent (see wall motion graphics). Indeterminate left ventricular fillingpressure. RIGHT VENTRICLE:Mildly enlarged right ventricular chamber size. Normalright ventricular systolic function. Estimated right ventricular systolicpressure 40 mmHg (right atrial pressure of 5 mmHg). ATRIA:Bi-atrial enlargement. CARDIAC VALVES:Status post 27mm [employer] Trifecta pericardial aortic valveprosthesis () Aortic valve prosthesis systolic mean Dopplergradient 6 mmHg. Aortic valve prosthetic orifice area by Doppler: 2.86 cm2No aortic valve prosthetic regurgitation. No aortic valve periprostheticregurgitation. Calcified mitral annulus. Mitral valve diastolic meanDoppler gradient 3 mmHg (heart rate 70 BPM). Mitral valve area bycontinuity equation 3.34 cm2. Mild mitral valve regurgitation. Normalpulmonary valve. Normal pulmonary valve systolic velocities. Mildpulmonary valve regurgitation. Tricuspid annulus dilatation. Moderatetricuspid valve regurgitation. Tricuspid regurgitant volume (PISA) 36 ml.Tricuspid regurgitation ERO (PISA) 0.39 cm2. OTHER ECHO FINDINGS:Normal inferior vena cava size with normal inspiratorycollapse (>50%). Normal mid ascending aorta diameter of 38 mm. Normalabdominal aorta Doppler flow pattern. No intracardiac mass or thrombus,but the left atrial appendage cannot be visualized adequately withtransthoracic echo to exclude thrombus in this location. No pericardialeffusion. For the complete report, see the Order-Level Documents. Johny Martínez Jr., M.D. CV ECHO PROCEDUR ES * DX Chest AP or PA and Lateral 2 Views (11/29/2023 9:02 AM CDT) Anatomical Region Laterality Modality Chest, Thoracic RST LOS, Tho racic ARZ LOS, Thoracic FLA LOS N/A Digital Radiography Impressions 11/29/2023 9:15 AM CDT Sternotomy with AVR. Aortic calcification. Peripheral interstitial fibrosis is slightly more prominent than on 03/13/2023. Heart size at upper limits of normal. Narrative 11/29/2023 9:15 AM CDT EXAM: ??DX CHEST AP OR PA AND LATERAL 2 VIEWS Procedure Note Esteban Saeed M.D. - 11/29/2023 EXAM: DX CHEST AP OR PA AND LATERAL 2 VIEWS IMPRESSION: Sternotomy with AVR. Aortic calcification. Peripheral interstitialfibrosis is slightly more prominent than on 03/13/2023. Heart size atupper limits of normal. Johny Martínez Jr., M.D. 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 ECG ORDERABLES MUSE NA * Lipid Panel (11/29/2023 8:22 AM CDT) Triglycerides 67 mg/dL 11/29/2023 11:01 AM CDT DTL Comment: ----REFERENCE VALUE---- Normal: <150 mg/dL Borderline High: 150-199 mg/dL High: 200-499 mg/dL Very High: > or =500 mg/dL Cholesterol, Total 78 mg/dL 2023 11:01 AM CDT DTL Comment: ----REFERENCE VALUE---- Desirable: < 200 mg/dL Borderline High: 200 - 239 mg/dL High: > or = 240 mg/dL Cholesterol, LDL, Calculated 19 mg/dL 11/29/2023 11:01 AM CDT DTL Comment: ----REFERENCE VALUE---- Desirable: <100 mg/dL Above Desirable: 100-129 mg/dL Borderline High: 130-159 mg/dL High: 160-189 mg/dL Very High: >=190 mg/dL ----ADDITIONAL INFORMATION---- LDL cholesterol calculated using the José/NIH equation. Cholesterol, HDL, S 44 >=40 mg/dL 11/29/2023 11:01 AM CDT DTL Cholesterol, Non-HDL, Calculated 34 mg/dL 11/29/2023 11:01 AM CDT DTL Comment: ----REFERENCE VALUE---- Desirable: <130 mg/dL Above Desirable: 130-159 mg/dL Borderline High: 160-189 mg/dL High: 190-219 mg/dL Very High: > or =220 mg/dL Fasting (8 HR or more) No 11/29/2023 9:01 AM CDT DTL Blood (Blood, Venous) 11/29/2023 8:22 AM CDT 11/29/2023 9:01 AM CDT Johny Martínez Jr., M.D. LAB BLOOD ADD-ON [facility] 200 [place] [address], [facility] 200 [place] [address] * NT-Pro B-Type Natriuretic Peptide (BNP) (11/29/2023 8:22 AM CDT) NT-Pro BNP 337 <=540 pg/mL 11/29/2023 11:01 AM CDT DTL Comment: NT-proBNP values less than 300 pg/mL have a 99% negative predictive value for excluding acute congestive heart failure. A cutoff of 1200 pg/mL for patients with an eGFR<60 yields a diagnostic sensitivity and specificity of 89% and 72% for acute congestive heart failure. A diagnostic NT-proBNP cutoff of 1800 pg/mL has been suggested in adults over 75 years of age in the absence of renal failure. Blood (Blood, Venous) 11/29/2023 8:22 AM CDT 11/29/2023 9:01 AM CDT Johny Martínez Jr., M.D. LAB BLOOD ADD-ON [facility] [address] [place] [address], [facility] 200 [place] [address] * (ABNORMAL) Prothrombin Time (PT) (11/29/2023 8:22 AM CDT) Prothrombin Time, P 31.1(H) 9.4 - 12.5 sec 11/29/2023 9:00 AM CDT DTL INR 2.8 0.9 - 1.1 11/29/2023 9:00 AM CDT DTL Comment: ----ADDITIONAL INFORMATION---- Standard intensity warfarin therapeutic range: 2.0 to 3.0 ?? High intensity warfarin therapeutic range: 2.5 to 3.5 Blood (Blood, Venous) 11/29/2023 8:22 AM CDT 11/29/2023 8:43 AM CDT Johny Martínez Jr., M.D. LAB BLOOD ADD-ON [facility] [address] [place] [address], [facility] 200 [place] [address] * (ABNORMAL) CBC with Differential, Blood (11/29/2023 8:22 AM CDT) Hemoglobin 13.0(L) 13.2 - 16.6 g/dL 11/29/2023 9:06 AM CDT DTL Hematocrit 39.5 38.3 - 48.6 % 11/29/2023 9:06 AM CDT DTL Erythrocytes 4.33(L) 4.35 - 5.65 x10(12)/L 11/29/2023 9:06 AM CDT DTL MCV 91.2 78.2 - 97.9 fL 11/29/2023 9:06 AM CDT DTL RBC Distrib Width 16.4(H) 11.8 - 14.5 % 11/29/2023 9:06 AM CDT DTL Platelet Count 244 135 - 317 x10(9)/L 11/29/2023 9:06 AM CDT DTL Leukocytes 8.2 3.4 - 9.6 x10(9)/L 11/29/2023 9:06 AM CDT DTL Neutrophils 5.32 1.56 - 6.45 x10(9)/L 11/29/2023 9:06 AM CDT DHPM Lymphocytes 1.98 0.95 - 3.07 x10(9)/L 11/29/2023 9:06 AM CDT DTL Monocytes 0.78 0.26 - 0.81 x10(9)/L 11/29/2023 9:06 AM CDT DTL Eosinophils 0.09 0.03 - 0.48 x10(9)/L 11/29/2023 9:06 AM CDT DTL Basophils 0.04 0.01 - 0.08 x10(9)/L 11/29/2023 9:06 AM CDT DTL Blood (Blood, Venous) 11/29/2023 8:22 AM CDT 11/29/2023 8:43 AM CDT Johyn Martínez Jr., M.D. LAB BLOOD ADD-ON [facility] 200 [place], [place] [id number] [place] [address] 200 [place], [place] [id number] [place] [address] 200 [place] [address] * Sodium (11/29/2023 8:22 AM CDT) Sodium, S 142 135 - 145 mmol/L 11/29/2023 11:01 AM CDT DTL Blood (Blood, Venous) 11/29/2023 8:22 AM CDT 11/29/2023 9:01 AM CDT Johny Martínez Jr., M.D. LAB BLOOD ADD-ON [facility] 200 [place], [place] [id number] [place] [address] 200 [place] [address] * Potassium (11/29/2023 8:22 AM CDT) Potassium, S 4.2 3.6 - 5.2 mmol/L 11/29/2023 11:01 AM CDT DTL Blood (Blood, Venous) 11/29/2023 8:22 AM CDT 11/29/2023 9:01 AM CDT Johny Martínez Jr., M.D. LAB BLOOD ADD-ON Performing Organization Address City/[facility]/ZIP Co de Phone Number [facility] [address] 200 [place] [address] * (ABNORMAL) Glucose, Fasting (11/29/2023 8:22 AM CDT) Glucose, P 114(H) 70 - 100 mg/dL 11/29/2023 9:52 AM CDT DTL Last Intake 2 hr 11/29/2023 9:01 AM CDT DTL Blood (Blood, Venous) 11/29/2023 8:22 AM CDT 11/29/2023 9:01 AM CDT Johny Martínez Jr., M.D. LAB BLOOD NON AD D-ON Performing Organization Address [facility] Co de Phone Number [facility] 200 [place], [place] [id number] [place] [address] [facility] 200 [place] [address] * Creatinine with Estimated GFR (11/29/2023 8:22 AM CDT) Creatinine 1.17 0.74 - 1.35 mg/dL 11/29/2023 11:01 AM CDT DTL Estimated GFR (eGFR) 61 >=60 mL/min/BSA 11/29/2023 11:01 AM CDT DTL Comment: Estimated GFR calculated using the 2020 CKD_EPI creatinine equation. Blood (Blood, Venous) 11/29/2023 8:22 AM CDT 11/29/2023 9:01 AM CDT Johny Martínez Jr., M.D. LAB BLOOD ADD-ON Performing Organization Address City/[facility]/ZIP Co de Phone Number [facility] 200 [place] [address], [place] 200 [place] [address] * Albumin (11/29/2023 8:22 AM CDT) Albumin, S 3.9 3.5 - 5.0 g/dL 11/29/2023 11:01 AM CDT DTL Blood (Blood, Venous) 11/29/2023 8:22 AM CDT 11/29/2023 9:01 AM CDT Johny Martínez Jr., M.D. LAB BLOOD ADD-ON [facility] [address] [place] [address], [place] [facility] [address] [place] [address] * PUL Home Overnight Oximetry (11/29/2023) 11/29/2023 Impressions ZAPATA NVISION EAP - 12/01/2023 6:37 AM CDT This is an overnight oximetry performed on room air without the use of an assisted breathing device. ??Baseline oxygen saturation was 88%, with an oxygen desaturation index (DAVID) of 11. ??The overnight oximetry tracing shows several high frequency oscillatory desaturation events. ??There were substantial lapses in recording of the oximetry tracing overnight. Impression: ??Abnormal study. ??Overnight oximetry tracing is suggestive of sleep-related disordered breathing. ??The low baseline oxygen saturation noted during the study is also suggestive of an underlying gas exchange abnormality. ??Overall interpretability is limited by time spent disconnected from the recording device. Physician: Anil Barakat M.B.B.S [id number] Narrative Procedure Note Anil Barakat M.B.B.S. - 12/01/2023 IMPRESSION: This is an overnight oximetry performed on room air without the use of anassisted breathing device. Baseline oxygen saturation was 88%, with anoxygen desaturation index (DAVID) of 11. The overnight oximetry tracingshows several high frequency oscillatory desaturation events. There were substantial lapses inrecording of the oximetry tracing overnight. Impression: Abnormal study. Overnight oximetry tracing is suggestive ofsleep- related disordered breathing. The low baseline oxygen saturationnoted during the study is also suggestive of an underlying gas exchangeabnormality. Overall interpretability is limited by time spent disconnected from the recordingdevice. Physician: Anil Barakat M.B.BOlamnS [id number] Johny Martínez Jr., M.D. PFT ORDERABLES Performing Organization Address City/[facility] Co de Phone Number ZAPATA NVISION EAP * XR chest 2V-Outside Chest Xray (11/23/2023 3:40 PM HEALTH COMMUNICATIONS SPECIALIST) Narrative IIMS - 11/27/2023 3:59 PM CDT This order has been created and auto-finalized to support the import of outside images. If available, original interpretation can be found on the Media Tab in Chart Review, in Document Viewer, or as an image in QREADS. If a re-interpretation or overread is required please follow defined workflow. ?? Provider Not In System IMG DIAGNOSTIC IM AGING PROCEDURES Performing Organization Address [facility] de Phone Number IIMS NA * US venous LE RT-Outside US (11/23/2023 8:45 AM HEALTH COMMUNICATIONS SPECIALIST) Narrative IIMS - 11/27/2023 3:59 PM CDT This order has been created and auto-finalized to support the import of outside images. If available, original interpretation can be found on the Media Tab in Chart Review, in Document Viewer, or as an image in QREADS. If a re-interpretation or overread is required please follow defined workflow. ?? Provider Not In System IMG US PROCEDURES Performing Organization Address City/[facility] Co de Phone Number IIMS NA from Last 3 Months Advance Directives For more information, please contact: [phone] Documents on File Type Date Recorded Patient Risk Intern Expl anation Advance Directives 10/26/2023 11:59 AM BODY /ORGAN DONATION Advance Directives 04/27/2018 8:52 PM Advance Directives 11/20/2017 12:00 AM Lega cy document. See document viewer. * Full Code (Latest Code Status on File) Date Activated Date Inactivated Comments 04/25/2018 9:45 PM 04/28/2018 2:47 PM Question Answer Comments Full Code: Not Discussed Due to: Patient not available Care Teams Counselor Supervisor Relationship Specialty Start Date End Date Elsewhere, Pcp PCP - General Family Medicine 03/24/21
--- OUTSIDE RECORDS SUMMARY | 2024-01-10 21:02 | XMS_ITS ---
Author Name Unknown Organization [facility] Address [address] [place] [address] Care Team Providers Care Finished Carpet Inspector Name Role Phone Unavailable Unavailable Unavailable Surgery Details Not on file Complications Check Surgery Details section. Procedure Estimated Blood Loss Check Surgery Details section. Procedure Findings Check Surgery Details section. Procedure Specimens Taken Check Surgery Details section.
--- OUTSIDE RECORDS SUMMARY | 2024-01-10 21:02 | XMS_ITS | Clinical Summary ---
Author Name Unknown Organization [facility] Address [address] [place] [address] Care Team Providers Care Director Of Accounting Name Role Phone Elsewhere, Pcp Primary Care Provider Unavailabl e Source Comments Patient records contain information from all sites at [facility]. For routine questions regarding patient records, call [phone] during business hours, M-F 8:00 AM - 5:00 PM Central Time. Record requests for emergency care only can be directed to [phone] at any time.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 11/29/2023 4:00 PM CDT Diagnostic Division of Pulmonary Medicine in [place], [place] [address] [place] [address] Johny Martínez Jr., M.D. Fibrosis Pulmonary (HCC); Ectopy Atrial 11/29/2023 2:00 PM CDT Office Visit Department of Cardiovascular Medicine in [place], [place] [address] [place] [address] Johny Martínez Jr., M.D. 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 from Last 3 Months Immunizations Name Administration Dates Next Due HZV (ZOSTAVAX) 03/12/2008 Influenza (IM) Preservative Free 10/30/2009 Influenza Split 06/18/2011, 7,06/18/2005,2003,07/19/2003,07/19/2002 Influenza, Seasonal, Injectable 07/14/2006 PPSV23(Discontinued) 02/13/2008 SARS-COV-2 (COVID-19) - PFIZ ER BIVALENT TS(Discontinued)(12 YEARS OR OLDER) 08/25/2022 Td, (Adult) Unspecified 09/18/2002 Tdap 05/08/2013 influenza high dose (65 year s or older) (PF) 07/26/2017,07/06/2010 Family History Medical History Relation Name Comments Coronary artery disease Mother Lissa mclaughlin Hypertension Mother Lissa mclaughlin Macular degeneration Mother Lissa mclaughlin Other cancer Mother Lissa mclaughlin Glaucoma Neg Hx Relation Name Status Comments Mother Lissa mclaughlin Social History Tobacco Use Types Packs/Day Years [...] 03/21/2021 How often do you attend chur ch or sabianism services? More than 4 times per year 03/21/2021 Do you belong to any clubs o r organizations such as jew groups, unions, fraternal or athletic groups, or [...] and heating? Not hard at all 08/16/2023 [facility] - Occupational Stress [...] your living situation today? [facility] have a [facility] place to live 08/16/2023 Education Answer Date Recorded What is the highest level of school you have completed or the highest degree you have received? Master's degree (e.g., MA, MS, Fanny, MEd, BONE CHAR KILN TENDER, [employer]) 12/25/2020 Sex and Gender Information Value Date Recorded Sex Assigned at Male 08/16/2023 8:01 PM CIRCUS ARTIST Gender Identity Male 12/22/2017 5:18 AM CDT [...] CDT Ancillary Procedure Department of Ophthalmology in [place], [place] [address] [place] [address] 01/24/2024 11:00 AM CDT Comprehensive Visit Department of Ophthalmology in [place], [place] [address] [place] [address] David Zeng M.D. [address] [place] [address] Health Maintenance Due Date Last Done Comments DTaP,Tdap,and Td Vaccines (2 - Td or Tdap) 05/08/2023 05/08/2013, 01/26/2005, 09/18/2002 Depression Screening (Annual PHQ-2) 09/18/2023 Fall Risk Screen (Annual) 09/18/2023 COVID-19 Vaccine (2022-10 4 season) 2023 06/16/2023, 08/25/2022, 12/28/2021, Additional history exists Creatinine Level (Kidney Fun ction Test) 11/28/2024 11/29/2023, 03/13/2023, 02/02/2022, Additional history exists Potassium Level 11/28/2024 11/29/2023, 02/17, 02/02/2022, Additional history exists Sodium Level 11/28/2024 11/29/2023, 02/17, 02/02/2022, Additional history exists Pneumococcal vaccine (65+ years) Completed 05/14/20, 02/13/2008 Zoster Vaccines Completed 08/07/2019, 01/17, 03/12/2008 Influenza Vaccine Completed 06/16/2023, , 07/07/2021, Additional history exists Medical Devices Implanted Type Area Telecommunications Engineer Device Identifier Shelf Expiration Date Model / Serial / Lot Valve Trifecta 27mm Gt - [id number] Implanted:Qty: 1 on 11/20/[address] [employer] (a Division of [employer]) Description:Device Manufactu rer - [employer]. Body Location - Other. Aortic. Device Status Text - [id number]. Patch Dual Mesh 1mm 7.5 X 10 - [id number] Implanted:Qty: 1 on 10/29/2009 Mesh or Patch Other/Legacy - See Implant Description [place] Description:Device Manufactu rer - [employer] Body Location - Other. Not Applicable. Device Status Text - [id number]. Misc Other- 0 Implanted:10/19 (Quantity not on file) Misc Other Mouth Description:Tooth implant Lens Tcn [id number] Bicnvx +14.0d - [id number] - [id number] Implanted:Qty: 1 on 03/24/2021 by David Zeng M.D. at [facility] Ocular Lens Left: Eye [employer] (Previously SHELIA) 10/12/2024 [id number] / [id number] / Lens Tcn [id number] Bicnvx +13.5d - [id number] - [id number] Implanted:Qty: 1 on 04/21/2021 by David Zeng M.D. at [facility] Ocular Lens Right: Eye [employer] (Previously SHELIA) 11/28/2024 [id number] / [id number] / Procedures Procedure Name Priority Date/Time [...] OUTSIDE DX CHEST Routine 11/23/2023 3:40 PM CIRCUS ARTIST OUTSIDE US Routine 11/23/2023 8:45 AM CIRCUS ARTIST from Last 3 Months Results * (TTE) [...] estimated ejection fraction range 50% - 55% (pfvi-[id number] variability). 2. 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 [...] graphics), estimated ejectionfraction range 50% - 55% (uujz-to-tsjx variability). 2. Status post 27mm [employer] Tru [...] CDT) Ventricular Rate ECG/Min 81 BPM MUSE OK Interval 136 ms MUSE QRSD Interval 150 ms MUSE QT Interval 416 ms MUSE QTC Interval 483 ms MUSE R Dingle -61 degrees MUSE T Wave Dingle 51 degrees MUSE 11/29/2023 8:39 AM CDT [...] Johny Martínez Jr., M.D. LAB BLOOD ADD-ON [facility] [address] [place] [address], [place] [facility] [address] [place] [address] * NT-Pro B-Type Natriuretic Peptide (BNP) (11/29/2023 [...] M.D. LAB BLOOD ADD-ON Performing Organization Address City/[facility] Co de Phone Number [facility] [address] [facility] 200 [place] [address] * (ABNORMAL) Prothrombin Time (PT) (11/29/2023 8:22 AM CDT) Pathologist [facility] Prothrombin Time, P 31.1(H) 9.4 - 12.5 [...] M.D. LAB BLOOD ADD-ON Performing Organization Address City/[facility]/ZIP Co de Phone Number [facility] 200 [place] [address], [facility] [address] [place] [address] * (ABNORMAL) CBC with Differential, Blood (11/29/2023 [...] Johny Martínez Jr., M.D. LAB BLOOD ADD-ON [facility] 200 [place] [address], [facility] 200 [place] [address] [facility] [address] [place] [address] * Sodium (11/29/2023 8:22 AM CDT) Sodium, S 142 135 - 145 mmol/L 11/29/2023 11:01 AM CDT DTL Blood (Blood, Venous) 11/29/2023 8:22 AM CDT 11/29/2023 9:01 AM CDT Johny Martínez Jr., M.D. LAB BLOOD ADD-ON [facility] 200 [place], [place] [address] [address] [place] [address] * Potassium (11/29/2023 8:22 AM CDT) Potassium, S 4.2 3.6 - 5.2 mmol/L 11/29/2023 11:01 AM CDT DT Blood (Blood, Venous) 11/29/2023 8:22 AM CDT 11/29/2023 9:01 AM CDT Johny Martínez Jr., M.D. LAB BLOOD ADD-ON [facility] [address] [place], [place] [address] 200 [place] [address] * (ABNORMAL) Glucose, Fasting (11/29/2023 8:22 AM CDT) Glucose, P 114(H) 70 - 100 mg/dL 11/29/2023 9:52 AM CDT DTL Last Intake 2 hr 11/29/2023 9:01 AM CDT DTL Blood (Blood, Venous) 11/29/2023 8:22 AM CDT 11/29/2023 9:01 AM CDT Johny Martínez Jr., M.D. LAB BLOOD NON AD D-ON [facility] [address] [facility] [address] [place] [address] * Creatinine with Estimated GFR (11/29/2023 8:22 AM CDT) Creatinine 1.17 0.74 - 1.35 mg/dL 11/29/2023 11:01 AM CDT DTL Estimated GFR (eGFR) 61 >=60 mL/min/BSA 11/29/2023 11:01 AM CDT DTL Comment: Estimated GFR calculated using the 2020 CKD_EPI creatinine equation. Blood (Blood, Venous) 11/29/2023 8:22 AM CDT 11/29/2023 9:01 AM CDT Johny Martínez Jr., M.D. LAB BLOOD ADD-ON [facility] [address] [place], [place] [phone] [place] [address] [facility] 200 [place] [address] * Albumin (11/29/2023 8:22 AM CDT) Albumin, S 3.9 3.5 - 5.0 g/dL 11/29/2023 11:01 AM CDT DTL Blood (Blood, Venous) 11/29/2023 8:22 AM CDT 11/29/2023 9:01 AM CDT Johny Martínez Jr., M.D. LAB BLOOD ADD-ON [facility] [address] [place], [place] [phone] [place] [address] DTL [facility] [address] * PUL Home Overnight Oximetry (11/29/2023) 11/29/2023 Impressions LISA CASTELLANOS ZAC - 12/01/2023 6:37 AM CDT This is [...] from the recording device. Physician: Anil Barakat M.B.BCherri [id number] Narrative Procedure Note nAil Barakat M.B.B.S. - 12/01/2023 IMPRESSION: This is [...] disconnected from the recordingdevice. Physician: Anil Barakat M.B.B.S [id number] Johny Martínez Jr., M.D. PFT ORDERABLES LISA FRANK * XR chest 2V-Outside Chest Xray (11/23/2023 3:40 PM CIRCUS ARTIST) Narrative IIMS - 11/27/2023 3:59 PM CDT [...] DIAGNOSTIC IM AGING PROCEDURES Performing Organization Address City/[facility] Co de Phone Number IIMS NA * US venous LE RT-Outside US (11/23/2023 8:45 AM CIRCUS ARTIST) Narrative IICO - 11/27/2023 3:59 PM CDT This order [...] System IMG US PROCEDURES Performing Organization Address [facility] de Phone Number IIMS NA from Last 3 Months Advance Directives For more information, please contact: [phone] Documents on File Type Date Recorded Patient Litigation Legal Secretary Expl anation Advance Directives 10/26/2023 11:59 AM BODY /ORGAN DONATION Advance Directives 04/27/2018 8:52 PM Advance Directives 11/20/2017 12:00 AM Lega cy document. See document viewer. * Full Code (Latest Code Status on File) Date Activated Date Inactivated Comments 04/25/2018 9:45 PM 04/28/2018 2:47 PM Question Answer Comments Full Code: Not Discussed Due to: Patient not available Care Teams Director Of Accounting Relationship Specialty Start Date End Date Elsewhere, Pcp PCP - General Family Medicine 03/24/21
--- OUTSIDE RECORDS SUMMARY | 2024-01-10 21:03 | XMS_ITS | Encounter Summary ---
Author Name Unknown Organization [facility] Address [address] [place] [address] Care Team Providers Care Vascular Surgery Physician Name Role Phone Elsewhere, Pcp Primary Care Provider Unavailabl e Encounter Details Date Type Department Care Team (Late st Contact Info) Description 01/10/2018 Historical Ophthalmology RST OPH Janey Torres O.D. [address] [place] [address] Social History Tobacco Use Types Packs/Day Years Used Date Smoking Tobacco: Never Sex and Gender Information Value Date Recorded Sex Assigned at Male 08/16/2023 8:01 PM HOUSE DECORATOR Gender Identity Male 12/22/2017 5:18 AM CDT Sexual Orientation Straight 12/22/2017 5: 18 AM CDT documented as of this encounter Progress Notes * Janey Torres O.D. - 01/10/2018 12:25 PM CDT Eye General CHIEF COMPLAINT glaucoma followup HISTORY OF PRESENT ILLNESS Follow up today for annual check-up for ocular hypertension both eyes, denies vision changes. Has occasionbal foreign body sensation left eye, not bothersome. 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 Diurnals (12/22): 17 - 22 both eyes No change in appearance of discs from prior descriptions. Pachy 540/533 OCT nfl 01/03: RE and LE wnl. RNFL 93/93. SS 8/9 01/03 Dana: Re and Le scatter. RE and LE reliable. Plan: monitor periodically. Recheck one year with Dana, OCT, refraction #2 Cataract, both eyes. #3 Macular epiretinal membrane both eyes OCT maculas (02/20): OD = 282; OS = 281 Plan: observe #4 History of localized retinal detachments both eyes Status-post laser PC for multiple peripheral retinal breaks both eyes (Dr. House, Apr 22). Stable. #5 Refractive error (myopia, presbyopia). 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 #2 Cataract, both eyes. 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 CDM Reports - EYEPinkdingo Id: [id number] Status: Fnl documented in this encounter Plan of Treatment Upcoming Encounters Date Type Department Care Team (Latest Contact Info) Description 01/24/2024 10:30 AM CDT Ancillary Procedure Department of Ophthalmology in [place], [place] [address] [place] [address] 01/24/2024 11:00 AM CDT Comprehensive Visit Department of Ophthalmology in [place], [place] [address] [place] [address] David Zeng M.D. [address] [place] [address] documented as of this encounter Visit Diagnoses Not on filedocumented in this encounter Additional Health Concerns Infection Onset Date Last Indicated Resolved Time COVID19 Pending 03/22/2021 03/22/2021 03/22/2021 5 :21 PM CDT COVID19 Pending 04/20/2021 04/20/2021 04/20/2021 1 1:46 AM CDT documented as of this encounter Care Teams Vascular Surgery Physician Relationship Specialty Start Date End Date Elsewhere, Pcp PCP - General Family Medicine 03/24/21 documented as of this encounter
--- OUTSIDE RECORDS SUMMARY | 2024-01-10 21:03 | XMS_ITS | Encounter Summary ---
Author Name Unknown Organization [facility] Address [address] [place] [address] Care Team Providers Care Veneer Gluer Name Role Phone Elsewhere, Pcp Primary Care Provider Unavailabl e Encounter Details Date Type Department Care Team (Latest Contact Info) Description 11/29/2023 7:57 AM CDT - 11/29/2023 8:57 AM CDT Hospital Encounter Department of Laboratory Medicine and Pathology, [facility], in [place], [place] [address] [place] [address] Johny Martínez Jr., M.D. 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 More than 4 times per year 03/21/2021 Do you belong to any clubs o r organizations such as tenriism groups, unions, fraternal or athletic groups, or [...] and heating? Not hard at all 08/16/2023 [facility] of Occupat ional Health - Occupational Stress [...] money to buy more. Never true 08/16/20 23 Within the past 12 months, t he [...] your living situation today? I [facility] to [facility] 08/16/2023 Education Answer Date Recorded What is the highest level of school you have completed or the highest degree you have received? Master's degree (e.g., MA, MS, Fanny, MEd, LIFE GUARD, [employer]) 12/25/2020 Sex and Gender Information Value Date Recorded Sex Assigned at Male 08/16/2023 8:01 PM FINANCIAL BROKERS Gender Identity Male 12/22/2017 5:18 AM CDT Sexual Orientation Straight 12/22/2017 5: 18 AM CDT documented as of this encounter Medications at Time of Discharge Medication Sig Dispensed Refills Start Date End Date acetaminophen (TYLENOL) 500 mg tablet Take 1,000 mg by mouth every 6 (six) hours as needed for pain. allopurinol (ZYLOPRIM) 300 mg tablet Take 150 mg by mouth daily. 05/08/2013 hydroCHLOROthiazide (HYDRODIURIL) 25 mg tablet Take 25 mg by mouth daily. 07/01/2015 lisinopril (PRINIVIL,ZESTRIL) 0.625 mg tablet Take 10 mg by mouth daily. 01/10/2023 metoprolol succinate (TOPROL-XL) 25 mg 24 hr tablet Take 25 mg by mouth daily. HAVE NOT STARTED YET- WAITING FOR APPT 11/29/23 11/23/2023 omeprazole (PriLOSEC) [address] capsule Take 20 mg by mouth daily. 03/08/2023 rosuvastatin (CRESTOR) 1.25 mg tablet Take 10 mg by mouth daily. 01/10/2023 Xarelto 15 mg tablet Take 15 mg by mouth 2 (two) times a day with meals. 11/24/2023 documented as of this encounter Plan of Treatment Upcoming Encounters Date Type Department Care Team (Latest Contact Info) Description 01/24/2024 10:30 AM CDT Ancillary Procedure Department of Ophthalmology in [place], [place] [address] [place] [address] 01/24/2024 11:00 AM CDT Comprehensive Visit Department of Ophthalmology in [place], [place] [address] [place] [address] David Zeng M.D. 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 LAB BLOOD ADD-ON [place] [address] [place] [address], [facility] [address] [place] [address] * Lipid Panel (11/29/2023 8:22 AM CDT) Pathologist [facility] Triglycerides 67 mg/dL 11/29/2023 11:01 AM CDT [...] Johny Martínez Jr., M.D. LAB BLOOD ADD-ON [facility] [place] [address], [facility] [address] [place] [address] * (ABNORMAL) CBC with Differential, Blood (11/29/2023 [...] - 6.45 x10(9)/L 11/29/2023 9:06 AM CDT PM Lymphocytes 1.98 0.95 - 3.07 x10(9)/L 11/29/2023 9:06 AM CDT DTL Monocytes 0.78 0.26 - 0.81 x10(9)/L 11/29/2023 9:06 AM CDT DTL Eosinophils 0.09 0.03 - 0.48 x10(9)/L 11/29/2023 9:06 AM CDT DTL Basophils 0.04 0.01 - 0.08 x10(9)/L 11/29/2023 9:06 AM CDT DTL Blood (Blood, Venous) 11/29/2023 8:22 AM CDT 11/29/2023 8:43 AM CDT Johny Martínez Jr., M.D. LAB BLOOD ADD-ON [facility] [address] [place] [address], [facility] [address] [place] [address] * (ABNORMAL) Prothrombin Time (PT) (11/29/2023 8:22 [...] M.D. LAB BLOOD ADD-ON Performing Organization Address City/[facility]/ZIP Co de Phone Number [facility] [address] [place], [place] [id number] [place] [address] [address] [place] [address] * Sodium (11/29/2023 8:22 AM CDT) Sodium, S 142 135 - 145 mmol/L 11/29/2023 11:01 AM CDT DTL Blood (Blood, Venous) 11/29/2023 8:22 AM CDT 11/29/2023 9:01 AM CDT Johny Martínez Jr., M.D. LAB BLOOD ADD-ON Performing Organization Address City/[facility]/ZIP Co de Phone Number [facility] [address] [place], [place] [address] [place] [address] [address] [place] [address] * Potassium (11/29/2023 8:22 AM CDT) Potassium, S 4.2 3.6 - 5.2 mmol/L 11/29/2023 11:01 AM CDT DTL Blood (Blood, Venous) 11/29/2023 8:22 AM CDT 11/29/2023 9:01 AM CDT Johny Martínez Jr., M.D. LAB BLOOD ADD-ON [facility] [address] [place], [place] [id number] [place] [address] [address] [place] [address] * (ABNORMAL) Glucose, Fasting (11/29/2023 8:22 AM CDT) Glucose, P 114(H) 70 - 100 mg/dL 11/29/2023 9:52 AM CDT DTL Last Intake 2 hr 11/29/2023 9:01 AM CDT DTL Blood (Blood, Venous) 11/29/2023 8:22 AM CDT 11/29/2023 9:01 AM CDT Johny Martínez Jr., M.D. LAB BLOOD NON AD D-ON [facility] [address] [facility] [address] [place] [address] * Creatinine with Estimated GFR (11/29/2023 8:22 AM CDT) Creatinine 1.17 0.74 - 1.35 mg/dL 11/29/2023 11:01 AM CDT DTL Estimated GFR (eGFR) 61 >=60 mL/min/BSA 11/29/2023 11:01 AM CDT DTL Comment: Estimated GFR calculated using the 2020 CKD_EPI creatinine equation. Blood (Blood, Venous) 11/29/2023 8:22 AM CDT 11/29/2023 9:01 AM CDT Johny Martínez Jr., M.D. LAB BLOOD ADD-ON [facility] [address] [place], [place] [id number] [place] [address] [facility] [address] [place] [address] * Albumin (11/29/2023 8:22 AM CDT) Albumin, S 3.9 3.5 - 5.0 g/dL 11/29/2023 11:01 AM CDT DTL Blood (Blood, Venous) 11/29/2023 8:22 AM CDT 11/29/2023 9:01 AM CDT Johny Martínez Jr., M.D. 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
--- OUTSIDE RECORDS SUMMARY | 2024-01-10 21:03 | XMS_ITS | Encounter Summary ---
Author Name Unknown Organization [facility] Address [address] [place] [address] Care Team Providers Care Assembler Sandal Parts Name Role Phone Elsewhere, Pcp Primary Care Provider Unavailabl e Encounter Details Date Type Department Care Team (Late st Contact Info) Description 12/28/2015 Historical Ophthalmology RST OPH Janey Torres O.D. 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 - 12/28/2015 7:26 AM CDT Eye General CHIEF COMPLAINT 1 year follow up Ocular hypertension both eyes HISTORY OF PRESENT ILLNESS 80 year old male returns for a 1 year recheck. Patient reports stable vision; both eyes. No new concerns to report today. 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 Diurnals (12/22): 17 - 22 both eyes No change in appearance of discs from prior descriptions. Pachy 540/533 OCT nfl 01/01: RE and LE wnl. RNFL 91/92. SS 9/9. 4/16 Dana: Re and Le scatter. RE and LE reliable. Plan: monitor periodically. Recheck one year with Dana, OCT, refraction #2 Cataract, both eyes. Plan: refraction one given from 12/25/15 #3 Macular epiretinal membrane both eyes OCT maculas (02/20): OD = 282; OS = 281 Plan: observe #4 History of localized retinal detachments both eyes Status-post laser PC for multiple peripheral retinal breaks both eyes (Dr. House, Apr 22). Stable. #5 Refractive error (myopia, presbyopia). 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 #2 Cataract, both eyes. 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 CDM Reports - EYEGEN Id: [id number] Status: Fnl documented in this encounter Plan of Treatment Upcoming Encounters Date Type Department Care Team (Latest Contact Info) Description 01/24/2024 10:30 AM CDT Ancillary Procedure Department of Ophthalmology in [place], [place] [address] [place] [address] 01/24/2024 11:00 AM CDT Comprehensive Visit Department of Ophthalmology in [place], [place] [address] [place] [address] David Zeng M.D. [address] [place] [address] documented as of this encounter Visit Diagnoses Not on filedocumented in this encounter Additional Health Concerns Infection Onset Date Last Indicated Resolved Time COVID19 Pending 03/22/2021 03/22/2021 03/22/2021 5 :21 PM CDT COVID19 Pending 04/20/2021 04/20/2021 04/20/2021 1 1:46 AM CDT documented as of this encounter Care Teams Assembler Sandal Parts Relationship Specialty Start Date End Date Elsewhere, Pcp PCP - General Family Medicine 03/24/21 documented as of this encounter
--- OUTSIDE RECORDS SUMMARY | 2024-01-10 21:03 | XMS_ITS | Encounter Summary ---
Author Name Unknown Organization [facility] Address [address] [place] [address] Care Team Providers Care Hse Advisor Name Role Phone Elsewhere, Pcp Primary Care Provider Unavailabl e Encounter Details Date Type Department Care Team ([facility] st Contact Info) Description 11/29/2023 4:00 PM CDT Diagnostic Division of Pulmonary Medicine in [place], [place] [address] [place] [address] Johny Martínez Jr., M.D. [address] [place] [address] Fibrosis Pulmonary (HCC); Ectopy Atrial Social History Tobacco Use Types Packs/Day Years [...] often do you attend chur ch or muslim services? More than 4 times per year 03/21/2021 Do you belong to any clubs o r organizations such as episcopal groups, unions, fraternal or athletic groups, or [...] and heating? Not hard at all 08/16/2023 [facility] of Occupat ional Health - Occupational Stress [...] your living situation today? [facility] a [facility] place to live 08/16/2023 Education Answer Date Recorded What is the highest level of school you have completed or the highest degree you have received? 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 [address] [place] [address] documented as of this encounter Procedures Procedure Name Priority Date/Time Associated Diagnosis Comments PUL HOME OVERNIGHT OXIMETRY Routine 11/29/2023 Fibrosis Pulmonary (HCC) Ectopy Atrial documented in this encounter Results * PUL Home Overnight Oximetry (11/29/2023) 11/29/2023 Impressions [facility] N[facility]ION EAP - 12/01/2023 6:37 AM CDT [...] the recording device. Physician: Anil Barakat M.B.B.S [id number] Narrative Procedure Note Anil Barakat M.B.B.S. - [...] from the recordingdevice. Physician: Anil Barakat M.B.B.S [id number] Johny Martínez Jr., M.D. PFT ORDERABLES [facility] documented in this encounter Visit Diagnoses Diagnosis Fibrosis Pulmonary (HCC) Ectopy Atrial documented in this encounter Care Teams Hse Advisor Relationship Specialty Start Date End Date Elsewhere, Pcp PCP - General Family Medicine 03/24/21 documented as of this encounter
--- OUTSIDE RECORDS SUMMARY | 2024-01-10 21:03 | XMS_ITS | Encounter Summary ---
Author Name Unknown Organization [facility] Address [address] [place] [address] Care Team Providers Care Loaf Counter Name Role Phone Elsewhere, Pcp Primary Care Provider Unavailabl e Encounter Details Date Type Department Care Team (Late st Contact Info) Description 01/23/2014 Historical Ophthalmology RST OPH Janey Torres O.D. 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 - 01/23/2014 1:16 PM CDT Eye General CHIEF COMPLAINT ocular hypertension follow up HISTORY OF PRESENT ILLNESS No vision concerns, distance or near, both eyes, constant. 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 Diurnals (12/22): 17 - 22 both eyes No change in appearance of discs from prior descriptions. Pachy 540/533 OCT nfl 01/2014: RE and LE wnl. RNFL 88/89. SS 03/25. 01/2014 Dana 24-2 RE and LE scatter. Plan: monitor periodically. Recheck one year with Dana, OCT #2 Cataract, both eyes. Plan: monitor periodically. 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 OCT maculas (02/20): OD = 282; OS = 281 Plan: observe #4 History of localized retinal detachments both eyes Status-post laser PC for multiple peripheral retinal breaks both eyes (Dr. House, Apr 22). Stable. #5 Refractive error (myopia, presbyopia). Plan: Continue with current glasses. Recheck 1 year. 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 #2 Cataract, both eyes. 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 CDM Reports - EYEMesitis Id: [id number] Status: Fnl documented in this encounter Plan of Treatment Upcoming Encounters Date Type Department Care Team (Latest Contact Info) Description 01/24/2024 10:30 AM CDT Ancillary Procedure Department of Ophthalmology in [place], [place] [address] [place] [address] 01/24/2024 11:00 AM CDT Comprehensive Visit Department of Ophthalmology in [place], [place] [address] [place] [address] David Zneg M.D. [address] [place] [address] documented as of this encounter Visit Diagnoses Not on filedocumented in this encounter Additional Health Concerns Infection Onset Date Last Indicated Resolved Time COVID19 Pending 03/22/2021 03/22/2021 03/22/2021 5 :21 PM CDT COVID19 Pending 04/20/2021 04/20/2021 04/20/2021 1 1:46 AM CDT documented as of this encounter Care Teams Loaf Counter Relationship Specialty Start Date End Date Elsewhere, Pcp PCP - General Family Medicine 03/24/21 documented as of this encounter
--- OUTSIDE RECORDS SUMMARY | 2024-01-10 21:03 | XMS_ITS | Encounter Summary ---
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 200 [place] [address] [facility] Referral ID Status Reason Start Date Expiration Date Visits Re quested Visits Authorized [id number] Closed 11/27/2023 11/26/2024 1 1 Encounter Details Date Type Department Care Team (Latest Contact Info) Description 11/27/2023 Clinical Communication Department of Cardiovascular Medicine in [place], [place] [address] [place] [phone] Johny Martínez Jr., M.D. [address] [place] [phone] Social History Tobacco Use Types Packs/Day Years [...] week 03/21/2021 How often do you attend [facility] or oriental orthodox services? More than 4 times per year 03/21/2021 Do you belong to any clubs o r organizations such as restorationism groups, unions, fraternal or athletic groups, or [...] and heating? Not hard at all 08/16/2023 [facility] - Occupational Stress Questionnaire Answer Date Recorded [...] your living situation today? I have a [facility] place to live 08/16/2023 Education Answer Date Recorded What is the highest level of school you have completed or the highest degree you have received? Master's degree (e.g., MA, MS, Fanny, MEd, CAFETERIA COUNTER ATTENDANT, [employer]) 12/25/2020 Sex and Gender Information Value Date Recorded Sex Assigned at Male 08/16/2023 8:01 PM ETHYLBENZENE OXIDIZER Gender Identity Male 12/22/2017 5:18 AM CDT Sexual Orientation Straight 12/22/2017 5: 18 AM CDT documented as of this encounter Plan of Treatment Upcoming Encounters Date Type Department Care Team (Latest Contact Info) Description 01/24/2024 10:30 AM CDT Ancillary Procedure Department of Ophthalmology in [place], [place] [address] [place] [address] 01/24/2024 11:00 AM CDT Comprehensive Visit Department of Ophthalmology in [place], [place] [address] [place] [address] David Zeng M.D. [address] [place] [address] documented as of this encounter Results * (TTE) 2D ECHO DOPPLER COLOR [...] estimated ejection fraction range 50% - 55% ([id number] variability). 2. Status post 27mm St. Tru [...] graphics), estimated ejectionfraction range 50% - 55% ([id number]-ph-[id number] variability). 2. Status post 27mm St. Tru [...] CDT) Ventricular Rate ECG/Min 81 BPM MUSE MA Interval 136 ms MUSE QRSD Interval 150 ms MUSE QT Interval 416 ms MUSE QTC Interval 483 ms MUSE R [place] -61 degrees MUSE T Wave [place] 51 degrees MUSE 11/29/2023 8:39 AM CDT [...] Corey Johny Martínez Jr., M.D. ECG ORDERABLES Performing Organization Address City/[facility] Co de Phone Number MUSE NA * NT-Pro B-Type Natriuretic Peptide (BNP) (11/29/2023 [...] M.D. LAB BLOOD ADD-ON Performing Organization Address [facility] Co de Phone Number [facility] [address] [place] [address], [facility] DTL [facility] [address] [place] [address] * Lipid Panel (11/29/2023 8:22 AM CDT) [...] Johny Martínez Jr., M.D. LAB BLOOD ADD-ON [place] [id number], [facility] 200 [place] [address] * (ABNORMAL) CBC with Differential, Blood (11/29/2023 [...] Johny Martínez Jr., M.D. LAB BLOOD ADD-ON [facility] [address] [place] [address], [facility] DTL [facility] [address] [place] [address] [facility] [address] [place] [address] * (ABNORMAL) Prothrombin Time (PT) (11/29/2023 8:22 [...] Johny Martínez Jr., M.D. LAB BLOOD ADD-ON [facility] [address] [place] [address] * Sodium (11/29/2023 8:22 AM CDT) Sodium, S 142 135 - 145 mmol/L 11/29/2023 11:01 AM CDT DT Blood (Blood, Venous) 11/29/2023 8:22 AM CDT 11/29/2023 9:01 AM CDT Johny Martínez Jr., M.D. LAB BLOOD ADD-ON Performing Organization Address [facility] Co de Phone Number [facility] [address] [place] [address] * Potassium (11/29/2023 8:22 AM CDT) Potassium, S 4.2 3.6 - 5.2 mmol/L 11/29/2023 11:01 AM CDT DTL Blood (Blood, Venous) 11/29/2023 8:22 AM CDT 11/29/2023 9:01 AM CDT Johny Martínez Jr., M.D. LAB BLOOD ADD-ON Performing Organization Address City/[facility]/ZIP Co de Phone Number [facility] [address] [place] [address] * (ABNORMAL) Glucose, Fasting (11/29/2023 8:22 AM CDT) Glucose, P 114(H) 70 - 100 mg/dL 11/29/2023 9:52 AM CDT DTL Last Intake 2 hr 11/29/2023 9:01 AM CDT DTL Blood (Blood, Venous) 11/29/2023 8:22 AM CDT 11/29/2023 9:01 AM CDT Johny Martínez Jr., M.D. LAB BLOOD NON AD D-ON [facility] 200 [place], [place] [phone] [place] [address] [facility] 200 [place] [address] * Creatinine with Estimated GFR (11/29/2023 8:22 AM CDT) Creatinine 1.17 0.74 - 1.35 mg/dL 11/29/2023 11:01 AM CDT DTL Estimated GFR (eGFR) 61 >=60 mL/min/BSA 11/29/2023 11:01 AM CDT DTL Comment: Estimated GFR calculated using the 2020 CKD_EPI creatinine equation. Blood (Blood, Venous) 11/29/2023 8:22 AM CDT 11/29/2023 9:01 AM CDT Johny Martínez Jr., M.D. LAB BLOOD ADD-ON [facility] 200 [place] [address], [facility] 200 [place] [address] * Albumin (11/29/2023 8:22 AM CDT) Albumin, S 3.9 3.5 - 5.0 g/dL 11/29/2023 11:01 AM CDT DTL Blood (Blood, Venous) 11/29/2023 8:22 AM CDT 11/29/2023 9:01 AM CDT Johny Martínez Jr., M.D. 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
--- OUTSIDE RECORDS SUMMARY | 2024-01-10 21:03 | XMS_ITS | Encounter Summary ---
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 [address] [place] [phone] [facility] Referral ID Status Reason Start Date Expiration Date Visits Re quested Visits Authorized [id number] Closed 11/27/2023 11/26/2024 1 1 Encounter Details Date Type Department Care Team (Latest Contact Info) Description 11/29/2023 8:58 AM CDT - 11/29/2023 9:14 AM CDT Hospital Encounter Department of Radiology, [facility], in [place], [place] [address] [place] [address] Johny Martínez Jr., M.D. 200 [place] [address] Prosthesis Mitral Valve; Prosthesis Aortic Valve; Aneurysm [...] week 03/21/2021 How often do you attend [facility] or spiritism services? More than 4 times per year 03/21/2021 Do you belong to any clubs o r organizations such as yazidism groups, unions, fraternal or athletic groups, or [...] and heating? Not hard at all 08/16/2023 [facility] [place] of Occupat ional Health - Occupational Stress [...] your living situation today? I have a [facility] place to live 08/16/2023 Education Answer Date Recorded What is the highest level of school you have completed or the highest degree you have received? Master's degree (e.g., MA, MS, Fanny, MEd, MEDICAL RECORD TRANSCRIBER, [employer]) 12/25/2020 Sex and Gender Information Value Date Recorded Sex Assigned at Male 08/16/2023 8:01 PM CLINICAL TECHNICIAN Gender Identity Male 12/22/2017 5:18 AM CDT [...] CDT Ancillary Procedure Department of Ophthalmology in [place], [place] [address] [place] [phone] 01/24/2024 11:00 AM CDT Comprehensive Visit Department of Ophthalmology in [place], [place] [address] [place] [phone] David Zeng M.D. 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
--- OUTSIDE RECORDS SUMMARY | 2024-01-10 21:03 | XMS_ITS | Encounter Summary ---
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 200 [place] [address] [facility] Referral ID Status Reason Start Date Expiration Date Visits Re quested Visits Authorized [id number] Closed 11/27/2023 11/26/2024 1 1 Encounter Details Date Type Department Care Team (Latest Contact Info) Description 11/29/2023 9:15 AM CDT - 11/29/2023 11:59 PM CDT Hospital Encounter Department of Cardiovascular Diseases in [place], [place] [address] [place] [address] Johny Martínez Jr., M.D. 200 [place] [address] Prosthesis Mitral Valve; Prosthesis Aortic Valve; Aneurysm [...] week 03/21/2021 How often do you attend [facility] or sabianist services? More than 4 times per year 03/21/2021 Do you belong to any clubs o r organizations such as sabianist groups, unions, fraternal or athletic groups, or [...] and heating? Not hard at all 08/16/2023 [facility] [place] of Occupat ional Health - Occupational Stress [...] your living situation today? I [facility] to live 08/16/2023 Education Answer Date Recorded What is the highest level of school you have completed or the highest degree you have received? Master's degree (e.g., MA, MS, Fanny, MEd, KOSHER INSPECTOR, [employer]) 12/25/2020 Sex and Gender Information Value Date Recorded Sex Assigned at Male 08/16/2023 8:01 PM PIERCING ARTIST Gender Identity Male 12/22/2017 5:18 AM [...] CDT Ancillary Procedure Department of Ophthalmology in [place], [place] [address] [place] [address] 01/24/2024 11:00 AM CDT Comprehensive Visit Department of Ophthalmology in [place], [place] [address] [place] [phone] David Zeng M.D. 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 2. Status post 27mm St. Tru [...] graphics), estimated ejectionfraction range 50% - 55% ([id number]-cc-[id number] variability). 2. Status post 27mm St. Tru [...] Martínez Jr., M.D. 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
--- OUTSIDE RECORDS SUMMARY | 2024-01-10 21:03 | XMS_ITS | Encounter Summary ---
Author Name Unknown Organization [facility] Address [address] [place] [address] Care Team Providers Care High School English Teacher Name Role Phone Elsewhere, Pcp Primary Care Provider Unavailabl e Encounter Details Date Type Department Care Team (Late st Contact Info) Description 12/05/2006 Historical Ophthalmology RST O[facility] Ranjit Mcdonald M.D. Social History Tobacco Use Types Packs/Day Years Used Date Smoking Tobacco: Never Assessed Sex and Gender Information Value Date Recorded Sex Assigned at Male 08/16/2023 8:01 PM BACKWINDER Gender Identity Male 12/22/2017 5:18 AM CDT Sexual Orientation Straight 12/22/2017 5: 18 AM CDT documented as of this encounter Progress Notes * Ranjit Mcdonald M.D. - 12/05/2006 1:58 PM CDT Eye General CHIEF COMPLAINT Annual exam. 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 Diurnals (12/22): 17 - 22 OU. No change in appearance of discs from prior descriptions. Visual field (11/22; automated; reliable): OU = normal. Plan: monitor periodically. #2 Cataract, both eyes. Plan: monitor periodically. 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 OCTs both maculas (02/20); monitor periodically. #4 Localized retinal detachments both eyes, with multiple peripheral retinal breaks both eyes. Status-post laser PC both eyes (Dr. House, Apr 22); stable. #5 Refractive error (myopia, presbyopia). Recheck 1 year (automated visual field; along with GME). 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 #2 Cataract, both eyes. 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 CDM Reports - EYEGEN Id: [id number] Status: Fnl documented in this encounter Plan of Treatment Upcoming Encounters Date Type Department Care Team (Latest Contact Info) Description 01/24/2024 10:30 AM CDT Ancillary Procedure Department of Ophthalmology in [place], [place] [address] [place] [address] 01/24/2024 11:00 AM CDT Comprehensive Visit Department of Ophthalmology in [place], [place] [address] [place] [address] David Zeng M.D. [address] [place] [address] documented as of this encounter Visit Diagnoses Not on filedocumented in this encounter Additional Health Concerns Infection Onset Date Last Indicated Resolved Time COVID19 Pending 03/22/2021 03/22/2021 03/22/2021 5 :21 PM CDT COVID19 Pending 04/20/2021 04/20/2021 04/20/2021 1 1:46 AM CDT documented as of this encounter Care Teams High School English Teacher Relationship Specialty Start Date End Date Elsewhere, Pcp PCP - General Family Medicine 03/24/21 documented as of this encounter
--- OUTSIDE RECORDS SUMMARY | 2024-01-10 21:03 | XMS_ITS | Encounter Summary ---
Author Name Unknown Organization [facility] Address [address] [place] [address] Care Team Providers Care Tuber Helper Name Role Phone Elsewhere, Pcp Primary Care Provider Unavailabl e Reason for Visit * Reason Onset Date Comments Pre-visit Intake 11/27/2023 Encounter Details Date Type Department Care Team (Latest Contact Info) Description 11/27/2023 2:00 PM CDT Clinical Communication Virtual Review in [place], [place] 200 [place] [address] Pre-visit Intake Social History Tobacco Use Types Packs/Day Years [...] often do you attend chur ch or anabaptist services? More than 4 times per year 03/21/2021 Do you belong to any clubs o r organizations such as confucianist groups, unions, fraternal or athletic groups, or [...] and heating? Not hard at all 08/16/2023 [facility] [place] of Occupat ional Health - Occupational Stress [...] your living situation today? I have a [facility] place to live 08/16/2023 Education Answer Date Recorded What is the highest level of school you have completed or the highest degree you have received? Master's degree (e.g., MA, MS, Fanny, MEd, DIRECTOR OF CLINICAL EDUCATION, [employer]) 12/25/2020 Sex and Gender Information Value Date Recorded Sex Assigned at Male 08/16/2023 8:01 PM DIE CUTTER APPRENTICE Gender Identity Male 12/22/2017 5:18 AM CDT Sexual Orientation Straight 12/22/2017 5: 18 AM CDT documented as of this encounter Plan of Treatment Upcoming Encounters Date Type Department Care Team (Latest Contact Info) Description 01/24/2024 10:30 AM CDT Ancillary Procedure Department of Ophthalmology in [place], [place] [address] [place] [address] 01/24/2024 11:00 AM CDT Comprehensive Visit Department of Ophthalmology in [place], [place] [address] [place] [address] David Zeng M.D. [address] [place] [address] documented as of this encounter Visit Diagnoses Not on filedocumented in this encounter Care Teams Tuber Helper Relationship Specialty Start Date End Date Elsewhere, Pcp PCP - General Family Medicine 03/24/21 documented as of this encounter
--- OUTSIDE RECORDS SUMMARY | 2024-01-10 21:03 | XMS_ITS | Encounter Summary ---
Author Name Unknown Organization [facility] Address [address] [place] [address] Care Team Providers Care Mysql Developer Name Role Phone Elsewhere, Pcp Primary Care Provider Unavailabl e Encounter Details Date Type Department Care Team (Late st Contact Info) Description 12/10/2008 Historical Ophthalmology RST O[facility] Ranjit Mcdonald M.D. Social History Tobacco Use Types Packs/Day Years Used Date Smoking Tobacco: Never Assessed Sex and Gender Information Value Date Recorded Sex Assigned at Male 08/16/2023 8:01 PM RV DETAILER Gender Identity Male 12/22/2017 5:18 AM CDT Sexual Orientation Straight 12/22/2017 5: 18 AM CDT documented as of this encounter Progress Notes * Ranjit Mcdonald M.D. - 12/10/2008 12:37 PM CDT Eye General CHIEF COMPLAINT yearly follow up for Ocular hypertension both eyes HISTORY OF PRESENT ILLNESS Automated visual field completed. Patient states that his vision has been stable for the past year. No changes and no new complaints. Denies floaters, no flashers of lights and Patient denies ocular pain. No headaches. 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 Diurnals (12/22): 17 - 22 OU. No change in appearance of discs from prior descriptions. Visual field (11/24; automated; reliable): OU = normal. Visual field (11/22; automated; reliable): OU = normal. Visual field (11/23; automated; reliable): OU = normal. Visual field (11/24; automated; reliable): OU = normal. OCT nfl (02/20): OD = ? slight inf thinning; OS = normal. Plan: monitor periodically. #2 Cataract, both eyes. Plan: monitor periodically. 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 OCT maculas (02/20): OD = 282; OS = 281 #4 History of localized retinal detachments both eyes With multiple peripheral retinal breaks both eyes. Status-post laser PC both eyes (Dr. House, Apr 22). Stable. #5 Refractive error (myopia, presbyopia). Recheck 1 year (along with GME). CDM Reports - EYEGEN Id: [id number] Status: Fnl documented in this encounter Plan of Treatment Upcoming Encounters Date Type Department Care Team (Latest Contact Info) Description 01/24/2024 10:30 AM CDT Ancillary Procedure Department of Ophthalmology in [place], [place] [address] [place] [address] 01/24/2024 11:00 AM CDT Comprehensive Visit Department of Ophthalmology in [place], [place] [address] [place] [address] David Zeng M.D. [address] [place] [address] documented as of this encounter Visit Diagnoses Not on filedocumented in this encounter Additional Health Concerns Infection Onset Date Last Indicated Resolved Time COVID19 Pending 03/22/2021 03/22/2021 03/22/2021 5 :21 PM CDT COVID19 Pending 04/20/2021 04/20/2021 04/20/2021 1 1:46 AM CDT documented as of this encounter Care Teams Mysql Developer Relationship Specialty Start Date End Date Elsewhere, Pcp PCP - General Family Medicine 03/24/21 documented as of this encounter
--- OUTSIDE RECORDS SUMMARY | 2024-01-10 21:03 | XMS_ITS | Encounter Summary ---
Author Name Unknown Organization [facility] Address [address] [place] [id number] Care Team Providers Care Group Segment Consultant Name Role Phone Elsewhere, Pcp Primary Care Provider Unavailabl e Encounter Details Date Type Department Care Team (Late st Contact Info) Description 02/10/2010 Historical Ophthalmology RST OPH Ranjit Mcdonald M.D. Social History Tobacco Use Types Packs/Day Years Used Date Smoking Tobacco: Never Assessed Sex and Gender Information Value Date Recorded Sex Assigned at Male 08/16/2023 8:01 PM ELECTROPLATER APPRENTICE Gender Identity Male 12/22/2017 5:18 AM CDT Sexual Orientation Straight 12/22/2017 5: 18 AM CDT documented as of this encounter Progress Notes * Ranjit Mcdonald M.D. - 02/10/2010 10:04 AM CDT Eye General CHIEF COMPLAINT yearly check HISTORY OF PRESENT ILLNESS Patient denies vision changes over past year. Denies flashes, floaters, or diplopia. IMPRESSION / REPORT / PLAN #1 Ocular [...] (myopia, presbyopia). Recheck 1 year (automated visual field / along with GME). 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 #2 Cataract, both eyes. 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 CDM Reports - EYEGEN Id: [id number] Status: Fnl documented in this encounter Plan of Treatment Upcoming Encounters Date Type Department Care Team (Latest Contact Info) Description 01/24/2024 10:30 AM CDT Ancillary Procedure Department of Ophthalmology in [place], [place] [address] [place] [address] 01/24/2024 11:00 AM CDT Comprehensive Visit Department of Ophthalmology in [place], [place] [address] [place] [address] David Zeng M.D. [address] [place] [address] documented as of this encounter Visit Diagnoses Not on filedocumented in this encounter Additional Health Concerns Infection Onset Date Last Indicated Resolved Time COVID19 Pending 03/22/2021 03/22/2021 03/22/2021 5 :21 PM CDT COVID19 Pending 04/20/2021 04/20/2021 04/20/2021 1 1:46 AM CDT documented as of this encounter Care Teams Group Segment Consultant Relationship Specialty Start Date End Date Elsewhere, Pcp PCP - General Family Medicine 03/24/21 documented as of this encounter
--- OUTSIDE RECORDS SUMMARY | 2024-01-10 21:03 | XMS_ITS | Encounter Summary ---
Author Name Unknown Organization [facility] Address [address] [place] [address] Care Team Providers Care Auto Clutch Specialist Name Role Phone Elsewhere, Pcp Primary Care Provider Unavailabl e Encounter Details Date Type Department Care Team (Late st Contact Info) Description 03/07/2011 Historical Ophthalmology RST OPH Ranjit Mcdonald M.D. Social History Tobacco Use Types Packs/Day Years Used Date Smoking Tobacco: Never Assessed Sex and Gender Information Value Date Recorded Sex Assigned at Male 08/16/2023 8:01 PM APPLE TURNER Gender Identity Male 12/22/2017 5:18 AM CDT Sexual Orientation Straight 12/22/2017 5: 18 AM CDT documented as of this encounter Progress Notes * Ranjit Mcdonald M.D. - 03/07/2011 12:38 PM CDT Eye General CHIEF COMPLAINT Ocular hypertension follow up HISTORY OF PRESENT ILLNESS Things stable of last year. No changes in vision. Denies flashes, floaters, and diplopia. Patient denies ocular pain. 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 Diurnals (12/22): 17 - 22 OU. No change in appearance of discs from prior descriptions. Visual field (11/24; automated; reliable): OU = normal. Visual field (11/22; automated; reliable): OU = normal. Visual field (11/23; automated; reliable): OU = normal. Visual field (11/24; automated; reliable): OU = normal. Visual field (02/26; automated; reliable): OU = normal. OCT nfl [...] #5 Refractive error (myopia, presbyopia). Recheck 1 year. 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 #2 Cataract, both eyes. 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 CDM Reports - [facility] Id: [id number] Status: Fnl documented in this encounter Plan of Treatment Upcoming Encounters Date Type Department Care Team (Latest Contact Info) Description 01/24/2024 10:30 AM CDT Ancillary Procedure Department of Ophthalmology in [place], [place] [address] [place] [address] 01/24/2024 11:00 AM CDT Comprehensive Visit Department of Ophthalmology in [place], [place] [address] [place] [address] David Zeng M.D. [address] [place] [address] documented as of this encounter Visit Diagnoses Not on filedocumented in this encounter Additional Health Concerns Infection Onset Date Last Indicated Resolved Time COVID19 Pending 03/22/2021 03/22/2021 03/22/2021 5 :21 PM CDT COVID19 Pending 04/20/2021 04/20/2021 04/20/2021 1 1:46 AM CDT documented as of this encounter Care Teams Auto Clutch Specialist Relationship Specialty Start Date End Date Elsewhere, Pcp PCP - General Family Medicine 03/24/21 documented as of this encounter
--- OUTSIDE RECORDS SUMMARY | 2024-01-10 21:03 | XMS_ITS | Encounter Summary ---
Author Name Unknown Organization [facility] Address [address] [place] [address] Care Team Providers Care Wireless Cellular Technician Name Role Phone Elsewhere, Pcp Primary Care Provider Unavailabl e Encounter Details Date Type Department Care Team (Late st Contact Info) Description 01/10/2013 Historical Ophthalmology RST OPH Janey Torres O.D. [address] [place] [address] Social History Tobacco Use Types Packs/Day Years Used Date Smoking Tobacco: Never Assessed Sex and Gender Information Value Date Recorded Sex Assigned at Male 08/16/2023 8:01 PM BELT CONVEYOR DRIER Gender Identity Male 12/22/2017 5:18 AM CDT Sexual Orientation Straight 12/22/2017 5: 18 AM CDT documented as of this encounter Progress Notes * Janey Torres O.D. - 01/10/2013 7:41 AM CDT Eye General CHIEF COMPLAINT ocular hypertension HISTORY OF PRESENT ILLNESS Follow up today for ocular hypertension both eyes without evidence of glaucoma. On no treatment. Noeye complaints. 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 Diurnals (12/22): 17 - 22 both eyes No change in appearance of discs from prior descriptions. Pachy 540/533 OCT nfl (02/20): RE = ? slight inf thinning; LE = normal. 12/2012 Dana 24-2 RE and LE scatter. Plan: monitor periodically. Recheck one year with Dana, OCT, disc photos. #2 Cataract, both eyes. Plan: monitor periodically. 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 OCT maculas (02/20): OD = 282; OS = 281 Plan: observe #4 History of localized retinal detachments both eyes Status-post laser PC for multiple peripheral retinal breaks both eyes (Dr. House, Apr 22). Stable. #5 Refractive error (myopia, presbyopia). Plan: Refraction at one year return. Recheck 1 year. 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 #2 Cataract, both eyes. 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 CDM Reports - EY[facility]identity Id: [id number] Status: Fnl documented in this encounter Plan of Treatment Upcoming Encounters Date Type Department Care Team (Latest Contact Info) Description 01/24/2024 10:30 AM CDT Ancillary Procedure Department of Ophthalmology in [place], [place] [address] [place] [address] 01/24/2024 11:00 AM CDT Comprehensive Visit Department of Ophthalmology in [place], [place] [address] [place] [address] David Zeng M.D. [address] [place] [address] documented as of this encounter Visit Diagnoses Not on filedocumented in this encounter Additional Health Concerns Infection Onset Date Last Indicated Resolved Time COVID19 Pending 03/22/2021 03/22/2021 03/22/2021 5 :21 PM CDT COVID19 Pending 04/20/2021 04/20/2021 04/20/2021 1 1:46 AM CDT documented as of this encounter Care Teams Wireless Cellular Technician Relationship Specialty Start Date End Date Elsewhere, Pcp PCP - General Family Medicine 03/24/21 documented as of this encounter
--- OUTSIDE RECORDS SUMMARY | 2024-01-10 21:03 | XMS_ITS | Encounter Summary ---
Author Name Unknown Organization [facility] Address [address] [place] [address] Care Team Providers Care Stitching Machine Setter Name Role Phone Elsewhere, Pcp Primary Care Provider Unavailabl e Encounter Details Date Type Department Care Team (Late st Contact Info) Description 12/25/2015 Historical Ophthalmology RST OPH María Martin, C.O.A. Social History Tobacco Use Types Packs/Day Years Used Date Smoking Tobacco: Never Assessed Sex and Gender Information Value Date Recorded Sex Assigned at Male 08/16/2023 8:01 PM INTERNET DEVELOPER Gender Identity Male 12/22/2017 5:18 AM CDT Sexual Orientation Straight 12/22/2017 5: 18 AM CDT documented as of this encounter Progress Notes * María Martin, C.O.A. - 12/25/2015 3:47 PM CDT Eye Subsequent Visit HISTORY OF PRESENT ILLNESS Here for refraction only, will see MD Monday. IMPRESSION / REPORT / PLAN Eye refraction performed at request of patient or physician per protocol. #1 Presbyopia DIAGNOSIS #1 Presbyopia CDM Reports - EYESV Id: [id number] Status: Fnl documented in this encounter Plan of Treatment Upcoming Encounters Date Type Department Care Team (Latest Contact Info) Description 01/24/2024 10:30 AM CDT Ancillary Procedure Department of Ophthalmology in [place], [place] [address] [place] [address] 01/24/2024 11:00 AM CDT Comprehensive Visit Department of Ophthalmology in [place], [place] [address] [place] [address] David Zeng M.D. [address] [place] [address] documented as of this encounter Visit Diagnoses Not on filedocumented in this encounter Additional Health Concerns Infection Onset Date Last Indicated Resolved Time COVID19 Pending 03/22/2021 03/22/2021 03/22/2021 5 :21 PM CDT COVID19 Pending 04/20/2021 04/20/2021 04/20/2021 1 1:46 AM CDT documented as of this encounter Care Teams Stitching Machine Setter Relationship Specialty Start Date End Date Elsewhere, Pcp PCP - General Family Medicine 03/24/21 documented as of this encounter
--- OUTSIDE RECORDS SUMMARY | 2024-01-10 21:03 | XMS_ITS | Encounter Summary ---
Author Name Unknown Organization [facility] Address [address] [place] [address] Care Team Providers Care Machinist Class B Name Role Phone Elsewhere, Pcp Primary Care Provider Unavailabl e Reason for Referral * Outpatient (Routine) - Authorized Specialty Diagnoses / Procedures Referred By Evie t Referred To Contact Ophthalmology Diagnoses Intraocular Lens Implant Status Post Opacity Lens Posterior Capsule Procedures Yag Capsulotomy - OD - Right Eye Dorota Ibarra O.D. [address] [place] [address] [facility] Referral ID Status Reason Start Date Expiration Date V isits Requested Visits Authorized [id number] Authorized 01/10/2024 01/09/2025 1 1 * Outpatient (Routine) - Authorized Specialty Diagnoses / Procedures Referred By Contdelphine t Referred To Contact Ophthalmology [place] [address] [facility] Referral ID Status Reason Start Date Expiration Date V isits Requested Visits Authorized [id number] Authorized 08/21/2023 08/20/2026 1 1 Scheduling Instructions [facility] glc with testing NE preferred E SHOP HELPER Reason for Visit * Reason Comments Glaucoma Suspect * Outpatient (Routine) - Closed Specialty Diagnoses / Procedures Referred By Contac t Referred To Contact Ophthalmology Dorota Ibarra O.D. [address] [place] [phone] [facility] Referral ID Status Reason Start Date Expiration Date Visits Re quested Visits Authorized [id number] Closed 06/15/2022 06/14/2025 1 1 Encounter Details Date Type Department Care Team (Latest Contact Info) Description 08/21/2023 3:45 PM PLATE SHOP HELPER Office Visit Department of Ophthalmology in [place], [place] [address] [place] [phone] Dorota Ibarra O.D. [address] [place] [address] Glaucoma Suspect Ocular Hypertension Bilateral (Primary Dx); Intraocular Lens Implant Status Post; Opacity Lens Posterior Capsule; Membrane Macula Epiretinal Bilateral Social History Tobacco Use Types Packs/Day Years Used Date Smoking Tobacco: Never Passive Smoke Exposure: Past Smokeless Tobacco: Never Passive Exposure Comments:as a young child Alcohol Use Standard Drinks/Week Comments Yes 2 (1 standard drink = 0.6 oz pur [...] often do you attend chur ch or restorationist services? More than 4 times per year 03/21/2021 Do you belong to any clubs o r organizations such as oriental orthodox groups, unions, fraternal or athletic groups, or [...] and heating? Not hard at all 08/16/2023 [facility] - Occupational Stress [...] Master's degree (e.g., MA, MS, Fanny, MEd, PARTS CLASSIFIER, [employer]) 12/25/2020 Sex and Gender Information Value Date Recorded Sex Assigned at Male 08/16/2023 8:01 PM PLATE SHOP HELPER Gender Identity Male 12/22/2017 5:18 AM CDT Sexual Orientation Straight 12/22/2017 5: 18 AM CDT documented as of this encounter Progress Notes * Dorota Ibarra O.D. - 08/21/2023 3:45 PM CST Adan Donovan was seen today for Glaucoma Suspect # Ocular hypertension both eyes Tmax: , Pachy 540/533, gonio open both eyes Today (08/21/2023) IOP 19/20 HVF with nasal changes left eye OCT full/stable both eyes Plan: Discussed exam findings and test results. Continue to monitor off drops. Follow up 12 mo with [facility] for HVF, dilation w tech, and OCT # Pseudophakia both eyes Centered/stable Mild PCO right eye > left eye, discussed YAG, patient reports not bothersome. Okay to request YAG consult when ready. # Macular epiretinal membrane both eyes Mild, not visually significant # History of retinal detachments both eyes Status-post laser PC for multiple peripheral retinal breaks both eyes (Dr. House, Apr 22). Flat, stable. E SHOP HELPER documented in this encounter Miscellaneous Notes * Addendum Note - Dorota Ibarra O.D. - 08/21/2023 3:45 PM CSTAddended by: DOROTA IBARRA on: 01/10/2024 12:56 PM Modules accepted: Orders documented in this encounter Plan of Treatment Upcoming Encounters Date Type Department Care Team (Latest Contact Info) Description 01/24/2024 10:30 AM CDT Ancillary Procedure Department of Ophthalmology in [place], [place] [address] [place] [address] 01/24/2024 11:00 AM CDT Comprehensive Visit Department of Ophthalmology in [place], [place] [address] [place] [address] David Zeng M.D. [address] [place] [address] Scheduled Orders Name Type Priority Associated Diagnoses Orde r Schedule Optical Coherence Tomography - Optic Nerve - OU - Both Eyes Ophthalmology Routine Glaucoma Suspect Ocular Hypertension Bilateral Expected: 08/21/2024 (Approximate), Expires: 11/19/2024 Automated VF - Extended - OU - Both Eyes Ophthalmology Routine Glaucoma Suspect Ocular Hypertension Bilateral Expected: 08/21/2024 (Approximate), Expires: 11/19/2024 Yag Capsulotomy - OD - Right Eye Ophthalmology Routine Intraocular Lens Implant Status Post Opacity Lens Posterior Capsule Expected: 01/10/2024, Expires: 04/10/2025 Scheduled Referrals Name Type Priority Associated Diagnoses Order Schedule Ophthalmology office visit (clinic) Outpatient Referral Routine Expected: 08/21/2024 (Approximate), Expires: 11/19/2024 documented as of this encounter Visit Diagnoses Diagnosis Glaucoma Suspect Ocular Hypertension Bilateral- Primary Intraocular Lens Implant Status Post Opacity Lens Posterior Capsule Membrane Macula Epiretinal Bilateral documented in this encounter Care Teams Machinist Class B Relationship Specialty Start Date End Date Elsewhere, Pcp PCP - General Family Medicine 03/24/21 documented as of this encounter
--- OUTSIDE RECORDS SUMMARY | 2024-01-10 21:03 | XMS_ITS | Encounter Summary ---
Author Name Unknown Organization [facility] Address [address] [place] [address] Care Team Providers Care Box Press Operator Name Role Phone Elsewhere, Pcp Primary Care Provider Unavailabl e Encounter Details Date Type Department Care Team (Late st Contact Info) Description 12/26/2016 Historical Ophthalmology RST OPH Janey Torres O.D. 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 - 12/26/2016 12:38 PM CDT Eye General CHIEF COMPLAINT watching for glaucoma HISTORY OF PRESENT ILLNESS Follow up today for ocular hypertension both eyes. 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 Diurnals (12/22): 17 - 22 both eyes No change in appearance of discs from prior descriptions. Pachy 540/533 OCT nfl 01/02: RE and LE wnl. RNFL 89/94. SS 7/8 01/02 Dana: Re and Le scatter. RE and [...] (myopia, presbyopia). CDM Reports - EYEGEN Id: [id number] Status: Fnl documented in this encounter Plan of Treatment Upcoming Encounters Date Type Department Care Team (Latest Contact Info) Description 01/24/2024 10:30 AM CDT Ancillary Procedure Department of Ophthalmology in [place], [place] [address] [place] [address] 01/24/2024 11:00 AM CDT Comprehensive Visit Department of Ophthalmology in [place], [place] [address] [place] [address] David Zeng M.D. [address] [place] [address] documented as of this encounter Visit Diagnoses Not on filedocumented in this encounter Additional Health Concerns Infection Onset Date Last Indicated Resolved Time COVID19 Pending 03/22/2021 03/22/2021 03/22/2021 5 :21 PM CDT COVID19 Pending 04/20/2021 04/20/2021 04/20/2021 1 1:46 AM CDT documented as of this encounter Care Teams Box Press Operator Relationship Specialty Start Date End Date Elsewhere, Pcp PCP - General Family Medicine 03/24/21 documented as of this encounter
--- OUTSIDE RECORDS SUMMARY | 2024-01-10 21:03 | XMS_ITS | Encounter Summary ---
Author Name Unknown Organization [facility] Address [address] [place] [id number] Care Team Providers Care A And P Mechanic Name Role Phone Elsewhere, Pcp Primary Care Provider Unavailabl e Reason for Visit * Appointment Request (Routine) - Closed Specialty Diagnoses / Procedures Referred By Contac t Referred To Contact Cardiovascular Disease Referral ID Status Reason Start Date Expiration Date Visits Re quested Visits Authorized [id number] Closed 11/27/2023 11/26/2024 1 1 Encounter Details Date Type Department Care Team (Latest Contact Info) Description 11/29/2023 2:00 PM CDT Office Visit Department of Cardiovascular Medicine in [place], [place] [address] [place] [address] Johny Martínez Jr., M.D. 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 More than 4 times per year [...] and heating? Not hard at all 08/16/2023 [facility] Occupat ional Health - Occupational Stress [...] your living situation today? I have a [facility] place to live 08/16/2023 Education Answer Date Recorded What is the highest level of school you have completed or the highest degree you have received? Master's degree (e.g., MA, MS, Fanny, MEd, SHOP CLERK, [employer]) 12/25/2020 Sex and Gender Information Value Date Recorded Sex Assigned at Male 08/16/2023 8:01 PM SCHOOL PHOTOGRAPHER Gender Identity Male 12/22/2017 5:18 AM CDT Sexual Orientation Straight 12/22/2017 5: 18 AM CDT documented as of this encounter Last Filed Vital Signs Vital Sign Reading Time Taken Comments Blood Pressure 143/84 11/29/2023 2:05 PM CDT Pulse 78 11/29/2023 2:05 PM CDT Temperature - - Respiratory Rate - - Oxygen Saturation - - Inhaled Oxygen Concentration - - Weight 69 kg (152 lb 1.9 oz) 11/29/2023 2:05 PM CDT Height 167 cm (5' 5.75) 11/29/2023 2:05 PM CDT Body Mass Index 24.74 11/29/2023 2:05 PM CDT documented in this encounter H&P Notes * Johny Martínez Jr., M.D. - 11/29/2023 2:00 PM CDT REFERRAL SOURCE No ref. provider found CHIEF COMPLAINT / REASON FOR VISIT Recheck of aortic prosthesis, recent diagnosis of right lower limb deep venous thrombosis. Recent documentation of atrial fibrillation. 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 I saw him in February of last year. 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 He has a history of some interstitial lung disease. He has done well from the cardiac standpoint. He took a trip to [facility] several months ago and wore support hose and did not have any evidence of lower limb deep venous thrombosis at that time. He recently went to [place] by plane and then drove a car from one City to another. He developed what sounds like right lower limb deep venous thrombosis with pain in the right thigh and right calf region along with some swelling of the right lower limb. An ultrasound study showed deep venous thrombosis, after which he was anticoagulated with Eliquis. He tells me that he was told that the clot did not enclose the entire vein in the right lower limb. He still has some swelling and discomfort in the right lower limb. He has only been on the treatment for one week. In the hospital [place] he was found to have an irregular rhythm but presumably this was sinus with atrial premature beats since atrial fibrillation was not found to be present at that time. He tells me that the pain is in the lateral leg and also lateral and medial portions of the posterior thigh when he walks. [place]asionally when [place] because of the discomfort. Also, he was alerted by his smart watch that he might have atrial fibrillation. He was not aware ofprevious atrial fibrillation. His is here with him and says that he does occasionally snore lightly but does not have sleep apnea. Laboratory data from today include hemoglobin 13.0, white count 8, 200, platelet count 244, 000, INR 2.8, sodium 142, potassium 4.2, creatinine 1.17, glucose 114, NT proBNP 337, cholesterol 78, HDL 44, LDL 19 and triglycerides 67. I gave him a copy of the laboratory data. Chest images from today are interpreted by the radiologist to show the aortic prosthesis, calcification of the aorta, interstitial lung fibrosis which is slightly increased since last here and a normal heart size. I reviewed the 12 lead ECG from today. I gave him a copy. I interpret it to show sinus rhythm and not atrial fibrillation, with a rate of 81 beats per minute and some atrial premature beats. There isslight left ventricular hypertrophy. 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 I reviewed the report of the transthoracic echocardiogram and gave him a copy. It describes normal left ventricular chamber size, with hypokinesis of the posterior base and midzone, ejection fractionnormal 55%, with beat to beat variability because of the ectopic beats in sinus rhythm. The 27 mm [place] Trifecta prosthesis is felt to look normal with a gradient of only 6 mmHg and no significant leakage through or around the valve the mitral annulus is calcified with a gradient of 3 mmHg andthere is mild regurgitation. The tricuspid valve has moderate regurgitation with a regurgitant volume of 36 mL. Right ventricular chamber size is mildly enlarged with normal function but the right ventricular pressure is a bit increased at 40 mmHg. The inferior vena caval size is still normal as isinspiratory collapse. When compared with the study of 03/13/2023, there has been no significant change. Left ventricular diameters are normal, 34 mm in systole and 50 mm in diastole. The left atrial volume index was not calculated this year but was listed at 51 mL per sq meter two years ago. When comparing echocardiogram report from 2018 through the present there has been no significant change. The following portions of the patient's history were reviewed and updated as appropriate: allergies, current medications, family history, medical history, social history, surgical history, psychiatric history, substance abuse history, problem list, labs, diagnostics tests.. I also reviewed pertinent clinical notes in the electronic health record. REVIEW OF SYSTEMS Patient provided responses to questionnaire: All other systems reviewed and are negative. MEDICATIONS Current Medications: acetaminophen (TYLENOL) 500 mg tablet, Take 1,000 mg by mouth every 6 (six) hours as needed for pain. allopurinol (ZYLOPRIM) 300 mg tablet, Take 150 mg by mouth daily. hydroCHLOROthiazide (HYDRODIURIL) 25 mg tablet, Take 25 mg by mouth daily. lisinopril (PRINIVIL,ZESTRIL) 0.625 mg tablet, Take 10 mg by mouth daily. metoprolol succinate (TOPROL-XL) 25 mg 24 hr tablet, Take 25 mg by mouth daily. HAVE NOT STARTED YET- WAITING FOR APPT 11/29/23 omeprazole (PriLOSEC) [address] capsule, Take 20 mg by mouth daily. rosuvastatin (CRESTOR) 1.25 mg tablet, Take 10 mg by mouth daily. Xarelto 15 mg tablet, Take 15 mg by mouth 2 (two) times a day with meals. VITALS Blood Pressure: 143/84 Height: 167 cm Weight: 69 kg BMI (Calculated): 24.7 kg/m?? PHYSICAL EXAMINATION General: Appears healthy. Alert and articulate. Able to get up and down from examination table without assistance. Skin: No cyanosis, icterus, pallor, ecchymoses or petechiae. No stasis dermatitis or ulceration. Vessels: Carotid contour normal. No carotid or subclavian bruits. Jugular venous pressure normal. No abnormal venous waves. Hepatojugular reflux negative on liver compression. Heart: Regular rhythm. Occasional atrial premature beat. The heart is not overly active. Mitral first sound normal. Aortic prosthetic closure sound normal. Pulmonic valve closure sound normal. No third or fourth sound. No mitral click. No rub, dyskinesis, abnormal lift, vibration or rapid filling wave. There is no significant murmur from the aortic prosthesis. Lungs: He has fibrotic rales in both lung bases, right more than left. These are unchanged from before. No dyspnea. Abdomen: No liver tenderness or swelling. No abdominal aortic aneurysm. Extremities: Ankle edema absent. The calves are not firm and are equal in size. The thighs are not firm and equal in size.. No phlebitis. Eyes: No xanthelasma, icterus or conjunctivitis. ENT: Hearing and balance are satisfactory. Musculoskeletal:Normal musculature, gait and coordination. No atrophy. Psychiatry: Cheerful and not depressed. ASSESSMENT / PLAN #1 Normal aortic Trifecta prosthesis #2 Right lower limb discomfort Although he was diagnosed with a partial right lower limb deep venous thrombosis and his did note some swelling of the right lower limb, these are not apparent now even though he still has some discomfort on walking. His symptoms suggest a lumbosacral discomfort origin more than a deep venous thrombosis problem. #3 Frequent atrial ectopic beats Whether he did or did not have atrial fibrillation is unknown. However, I do not believe we have ever documented definite atrial fibrillation. We have documented multiple atrial premature beats with sinus rhythm. 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 He has never been formerly diagnosed with silicosis. He does has a history of GERD but does not recall having choked at night. I would recommend he elevate the front legs of the bed on blocks and have the whole bed slightly slight downward toward his feet to reduce possible reflux. I would recommend he continue his proton pump inhibitor at night. I would also recommend he consider a non calcium antacid at night such asGaviscon, Riopan, Gelusil or Maalox. He should avoid a bedtime snack. What to do? Fortunately, he has an excellent aortic Trifecta prosthesis. I would recommend a neurology evaluation and if this is positive for lumbosacral disease than imaging can be performed. He should continuethe anticoagulation anyway just in case he did have deep venous thrombosis. I do not believe he hadan arterial embolus and I do not find evidence that he definitely had atrial fibrillation. His leftatrial volume index was listed as increased. I will recommend overnight oximetry. Johny Martínez Jr., M.D. 11/29/2023 documented in this encounter Plan of Treatment Upcoming Encounters Date Type Department Care Team (Latest Contact Info) Description 01/24/2024 10:30 AM CDT Ancillary Procedure Department of Ophthalmology in [place], [place] [address] [place] [address] 01/24/2024 11:00 AM CDT Comprehensive Visit Department of Ophthalmology in [place], [place] [address] [place] [address] David Zeng M.D. [address] [place] [phone] documented as of this encounter Results * PUL Home Overnight Oximetry (11/29/2023) 11/29/2023 Impressions [facility] EMANUEL FRANK - 12/01/2023 6:37 AM CDT This is [...] the recording device. Physician: Anil Barakat M.B.B.S [id number] Narrative Procedure Note Anil Barakat M.B.B.S. - [...] from the recordingdevice. Physician: Anil Barakat M.B.B.S [id number] Johny Martínez Jr., M.D. 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
--- OUTSIDE RECORDS SUMMARY | 2024-01-10 21:03 | XMS_ITS | Encounter Summary ---
Author Name Unknown Organization [facility] Address [address] [place] [address] Care Team Providers Care Reconciler Name Role Phone Elsewhere, Pcp Primary Care Provider Unavailabl e Encounter Details Date Type Department Care Team (Late st Contact Info) Description 01/16/2012 Historical Ophthalmology [facility] Janey Torres O.D. [address] [place] [address] Social History Tobacco Use Types Packs/Day Years Used Date Smoking Tobacco: Never Assessed Sex and Gender Information Value Date Recorded Sex Assigned at Male 08/16/2023 8:01 PM PRODUCTION MANAGER Gender Identity Male 12/22/2017 5:18 AM CDT Sexual Orientation Straight 12/22/2017 5: 18 AM CDT documented as of this encounter Progress Notes * Janey Torres O.D. - 01/16/2012 3:29 PM CDT Eye General CHIEF COMPLAINT ocular hypertension follow up HISTORY OF PRESENT ILLNESS 76 year old male, follow up today for ocular hypertension both eyes without evidence of glaucoma. No eye complaints. 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 Diurnals (12/22): 17 - 22 both eyes No change in appearance of discs from prior descriptions. Pachy 540/533 OCT nfl (02/20): RE = ? slight inf thinning; LE = normal. Plan: monitor periodically. Recheck one year with Dana. #2 Cataract, both eyes. Plan: monitor periodically. [...] (myopia, presbyopia). CDM Reports - EYEGEN Id: [id number] Status: Fnl documented in this encounter Plan of Treatment Upcoming Encounters Date Type Department Care Team (Latest Contact Info) Description 01/24/2024 10:30 AM CDT Ancillary Procedure Department of Ophthalmology in [place], [place] [address] [place] [address] 01/24/2024 11:00 AM CDT Comprehensive Visit Department of Ophthalmology in [place], [place] [address] [place] [address] David Zeng M.D. [address] [place] [address] documented as of this encounter Visit Diagnoses Not on filedocumented in this encounter Additional Health Concerns Infection Onset Date Last Indicated Resolved Time COVID19 Pending 03/22/2021 03/22/2021 03/22/2021 5 :21 PM CDT COVID19 Pending 04/20/2021 04/20/2021 04/20/2021 1 1:46 AM CDT documented as of this encounter Care Teams Reconciler Relationship Specialty Start Date End Date Elsewhere, Pcp PCP - General Family Medicine 03/24/21 documented as of this encounter
--- OUTSIDE RECORDS SUMMARY | 2024-01-10 21:03 | XMS_ITS | Encounter Summary ---
Author Name Unknown Organization [facility] Address [address] [place] [address] Care Team Providers Care Game Breeding Farm Manager Name Role Phone Elsewhere, Pcp Primary Care Provider Unavailabl e Encounter Details Date Type Department Care Team (Late st Contact Info) Description 11/26/2007 Historical Ophthalmology [facility] Ranjit Mcdonald M.D. Social History Tobacco Use Types Packs/Day Years Used Date Smoking Tobacco: Never Assessed Sex and Gender Information Value Date Recorded Sex Assigned at Male 08/16/2023 8:01 PM PIERCING SPECIALIST Gender Identity Male 12/22/2017 5:18 AM CDT Sexual Orientation Straight 12/22/2017 5: 18 AM CDT documented as of this encounter Progress Notes * Ranjit Mcdonald M.D. 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 HISTORY OF PRESENT ILLNESS Patient denies vision problems or changes. Denies eye pain, flashes of light or floaters. 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 Diurnals (12/22): 17 - 22 OU. No change in appearance of discs from prior descriptions. Visual field (11/22; automated; reliable): OU = normal. Visual field (11/23; automated; reliable): OU = normal. OCT nfl [...] (myopia, presbyopia). CDM Reports - EYEGEN Id: [id number] Status: Fnl documented in this encounter Plan of Treatment Upcoming Encounters Date Type Department Care Team (Latest Contact Info) Description 01/24/2024 10:30 AM CDT Ancillary Procedure Department of Ophthalmology in [place], [place] [address] [place] [address] 01/24/2024 11:00 AM CDT Comprehensive Visit Department of Ophthalmology in [place], [place] [address] [place] [address] David Zeng M.D. [address] [place] [address] documented as of this encounter Visit Diagnoses Not on filedocumented in this encounter Additional Health Concerns Infection Onset Date Last Indicated Resolved Time COVID19 Pending 03/22/2021 03/22/2021 03/22/2021 5 :21 PM CDT COVID19 Pending 04/20/2021 04/20/2021 04/20/2021 1 1:46 AM CDT documented as of this encounter Care Teams Game Breeding Farm Manager Relationship Specialty Start Date End Date Elsewhere, Pcp PCP - General Family Medicine 03/24/21 documented as of this encounter
--- OUTSIDE RECORDS SUMMARY | 2024-01-10 21:03 | XMS_ITS | Encounter Summary ---
Author Name Unknown Organization [facility] Address [address] [place] [address] Care Team Providers Care Fountain Manager Name Role Phone Elsewhere, Pcp Primary Care Provider Unavailabl e Encounter Details Date Type Department Care Team (Late st Contact Info) Description 01/22/2015 Historical Ophthalmology [facility] aJney Torres O.D. [address] [place] [address] Social History Tobacco Use Types Packs/Day Years Used Date Smoking Tobacco: Never Assessed Sex and Gender Information Value Date Recorded Sex Assigned at Male 08/16/2023 8:01 PM BELLSTAFF Gender Identity Male 12/22/2017 5:18 AM CDT Sexual Orientation Straight 12/22/2017 5: 18 AM CDT documented as of this encounter Progress Notes * Janey Torres O.D. 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 HISTORY OF PRESENT ILLNESS This is a 79 year old male here for 1 year follow up for ocular hypertension both eyes without evidence of glaucoma. Patient notes that vision is stable. Patient denies ocular pain. 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 Diurnals (12/22): 17 - 22 both eyes No change in appearance of discs from prior descriptions. Pachy 540/533 OCT nfl 01/2014: RE and LE wnl. RNFL 88/89. SS 7/8. OCT 01/30: RE and LE wnl. RNFL 88/90. SS 03/25. 01/2014 Dana 24-2 RE and LE scatter. 01/30: Re and Le scatter. RE HS, LE reliable. Plan: monitor periodically. Recheck one year with Dana, OCT, refraction #2 Cataract, both eyes. Plan: monitor periodically. [...] Refractive error (myopia, presbyopia). CDM Reports - EYEZiploop Id: [id number] Status: Fnl documented in this encounter Plan of Treatment Upcoming Encounters Date Type Department Care Team (Latest Contact Info) Description 01/24/2024 10:30 AM CDT Ancillary Procedure Department of Ophthalmology in [place], [place] [address] [place] [address] 01/24/2024 11:00 AM CDT Comprehensive Visit Department of Ophthalmology in [place], [place] [address] [place] [address] David Zeng M.D. [address] [place] [address] documented as of this encounter Visit Diagnoses Not on filedocumented in this encounter Additional Health Concerns Infection Onset Date Last Indicated Resolved Time COVID19 Pending 03/22/2021 03/22/2021 03/22/2021 5 :21 PM CDT COVID19 Pending 04/20/2021 04/20/2021 04/20/2021 1 1:46 AM CDT documented as of this encounter Care Teams Fountain Manager Relationship Specialty Start Date End Date Elsewhere, Pcp PCP - General Family Medicine 03/24/21 documented as of this encounter
--- OUTSIDE RECORDS SUMMARY | 2024-01-10 21:03 | XMS_ITS | Encounter Summary ---
Author Name Unknown Organization [facility] Address [address] [place] [address] Care Team Providers Care Set Making Machine Operator Name Role Phone Elsewhere, Pcp Primary Care Provider Unavailabl e Encounter Details Date Type Department Care Team ([facility] st Contact Info) Description 12/01/2023 Documentation Department of Cardiovascular Medicine in [place], [place] [address] [place] [address] Johny Martínez Jr., M.D. [address] [place] [address] Social History Tobacco Use Types Packs/Day Years [...] often do you attend chur ch or orthodox services? More than 4 times per year 03/21/2021 Do you belong to any clubs o r organizations such as shinto groups, unions, fraternal or athletic groups, or [...] and heating? Not hard at all 08/16/2023 [facility] Occupat ional Health - Occupational Stress [...] your living situation today? [facility] 08/16/2023 Education Answer Date Recorded What is the highest level of school you have completed or the highest degree you have received? 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 - 12/01/2023 4:54 PM CDT Overnight oximetry was done and was very abnormal. I will send him a copy and recommend that he have a sleep consult with subsequent polysomnography. documented in this encounter Plan of Treatment Upcoming Encounters Date Type Department Care Team (Latest Contact Info) Description 01/24/2024 10:30 AM CDT Ancillary Procedure Department of Ophthalmology in [place], [place] [address] [place] [address] 01/24/2024 11:00 AM CDT Comprehensive Visit Department of Ophthalmology in [place], [place] [address] [place] [address] David Zeng M.D. [address] [place] [address] documented as of this encounter Visit Diagnoses Not on filedocumented in this encounter Care Teams Set Making Machine Operator Relationship Specialty Start Date End Date Elsewhere, Pcp PCP - General Family Medicine 03/24/21 documented as of this encounter
--- OUTSIDE RECORDS SUMMARY | 2024-01-10 21:04 | XMS_ITS | Encounter Summary ---
Author Name Unknown Organization [facility] Address [address] [place] [address] Care Team Providers Care Director Of Retention Name Role Phone Elsewhere, Pcp Primary Care Provider Unavailabl e Encounter Details Date Type Department Care Team (Late st Contact Info) Description 03/11/2005 Historical Ophthalmology RST OPH Sim House M.D. 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 - 03/11/2005 12:00 AM CDT Eye General CHIEF COMPLAINT Blurred vision in the distance both eyes. HISTORY OF PRESENT ILLNESS Dr. Mcdonald saw this patient on February 23, 2005. 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 Sent here to see Dr. House for treatment. Patient states that he is having a treatment in oneof his eyes today. Vision has not changed since visit with Dr. Mcdonald, both eyes. History of elevated pressure diagnosed elsewhere and was told to start drops but has not at this time due to wanting a second opinion here at [facility]. 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 Plan: nfl oct-borderlin in [facility] right eye #2 Cataract, both eyes. Plan: monitor periodically. #3 Macular epiretinal membrane both eyes, mild. Plan: ; monitor periodically. #4 Localized retinal detachments both eyes, with multiple peripheral retinal breaks both eyes.and lattice treat right eye today; Risks and benefits of treatment were extensively discussed including the fact that treatment may cause the patient to lose vision . Treatment may affect visual field or light sensitivity. Discussed risks, goals, . Also discussed the necessity of other members of the surgical team participating in the interventional procedure. This was discussed with the patient and whoever else was present. The patient understands and wishes to proceed Patient education: Ready to learn, no apparent learning barriers were identified; learning preferences include listening. Explained diagnosis and treatment plan; patient expressed understanding of the content. ndirect and slit lamp laser to breaks and lattice right eye without complications; rtc on march 28(has appointment already) #5 Refractive error (myopia, presbyopia). 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 #2 Cataract, both eyes. 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 CDM Reports - [facility] Id: [id number] Status: Fnl documented in this encounter Plan of Treatment Upcoming Encounters Date Type Department Care Team (Latest Contact Info) Description 01/24/2024 10:30 AM CDT Ancillary Procedure Department of Ophthalmology in [place], [place] [address] [place] [address] 01/24/2024 11:00 AM CDT Comprehensive Visit Department of Ophthalmology in [place], [place] [address] [place] [address] David Zeng M.D. [address] [place] [address] documented as of this encounter Visit Diagnoses Not on filedocumented in this encounter Additional Health Concerns Infection Onset Date Last Indicated Resolved Time COVID19 Pending 03/22/2021 03/22/2021 03/22/2021 5 :21 PM CDT COVID19 Pending 04/20/2021 04/20/2021 04/20/2021 1 1:46 AM CDT documented as of this encounter Care Teams Director Of Retention Relationship Specialty Start Date End Date Elsewhere, Pcp PCP - General Family Medicine 03/24/21 documented as of this encounter
--- OUTSIDE RECORDS SUMMARY | 2024-01-10 21:04 | XMS_ITS | Clinical Summary ---
Author Name Unknown Organization [facility] Address [place], [place] [address] Care Team Providers Care Seamark Advanced Operator Maintainer Name Role Phone Caridad Vaca MD Primary Care Provider [phone] Social History Tobacco Use Types Packs/Day Years Used Date Smoking Tobacco: Never Assessed Sex and Gender Information Value Date Recorded Sex Assigned at Not on file Gender Identity Not on file Sexual Orientation Not on file Plan of Treatment Health Maintenance Due Date Last Done Comments Tdap 02/16/1946 Depression screening for age 12+ 1949 BMI (ht and wt on same day) for age 18+ 1955 Tetanus booster 1957 Zoster (shingles) series for age 50+ (1 of 2) 02/15/19 87 Pneumococcal series for age 65+ (1 of 1 - PCV) 002 COVID-19 vaccine series (24 season) 3 Influenza for age 65+ 05/19/2024 Care Teams Seamark Advanced Operator Maintainer Relationship Specialty Start Date End Date Caridad Vaca MD [address] [place] [address] PCP - General Internal Medicine 11/28/17
--- OUTSIDE RECORDS SUMMARY | 2024-01-10 21:04 | XMS_ITS | Encounter Summary ---
Author Name Unknown Organization [facility] Address [address] [place] [address] Care Team Providers Care Cotton Ginner Name Role Phone Elsewhere, Pcp Primary Care Provider Unavailabl e Encounter Details Date Type Department Care Team (Late st Contact Info) Description 03/28/2005 Historical Ophthalmology RST OPH Sim House M.D. Social History Tobacco Use Types Packs/Day Years Used Date Smoking Tobacco: Never Assessed Sex and Gender Information Value Date Recorded Sex Assigned at Male 08/16/2023 8:01 PM SHUTDOWN COORDINATOR Gender Identity Male 12/22/2017 5:18 AM CDT Sexual Orientation Straight 12/22/2017 5: 18 AM CDT documented as of this encounter Progress Notes * Sim House M.D. - 03/28/2005 12:00 AM CDT Eye General CHIEF COMPLAINT laser treatment in left eye HISTORY OF PRESENT ILLNESS Patient states that vision in both eyes are stable. Denies pain and flashing lights. States he has a intermittent floater in right eye that he's had for the last 3-4 days. No other complaints. 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 Plan: nfl oct-[facility]lin in [facility] right eye #2 Cataract, both eyes. Plan: monitor periodically. #3 Macular epiretinal membrane both eyes, mild. Plan: ; monitor periodically. #4 Localized retinal detachments both eyes, with multiple peripheral retinal breaks both eyes.and lattice sp treatment right eye in the past doing well; today treat left; Risks and benefits of treatment were extensively discussed including the fact that treatment may cause the patient to lose vision . Treatment may affect visual field or light sensitivity. Discussed risks, goals, . Also discussed the ne cessity of other members of the surgical team [...] (myopia, presbyopia). CDM Reports - [facility] Id: [id number] Status: Fnl documented in this encounter Plan of Treatment Upcoming Encounters Date Type Department Care Team (Latest Contact Info) Description 01/24/2024 10:30 AM CDT Ancillary Procedure Department of Ophthalmology in [place], [place] [address] [place] [address] 01/24/2024 11:00 AM CDT Comprehensive Visit Department of Ophthalmology in [place], [place] [address] [place] [address] David Zeng M.D. [address] [place] [address] documented as of this encounter Visit Diagnoses Not on filedocumented in this encounter Additional Health Concerns Infection Onset Date Last Indicated Resolved Time COVID19 Pending 03/22/2021 03/22/2021 03/22/2021 5 :21 PM CDT COVID19 Pending 04/20/2021 04/20/2021 04/20/2021 1 1:46 AM CDT documented as of this encounter Care Teams Cotton Ginner Relationship Specialty Start Date End Date Elsewhere, Pcp PCP - General Family Medicine 03/24/21 documented as of this encounter
--- OUTSIDE RECORDS SUMMARY | 2024-01-10 21:04 | XMS_ITS | Encounter Summary ---
Author Name Unknown Organization [facility] Address [address] [place] [address] Care Team Providers Care Farmworker Livestock Name Role Phone Elsewhere, Pcp Primary Care Provider Unavailabl e Encounter Details Date Type Department Care Team (Late st Contact Info) Description 02/23/2005 Historical Ophthalmology RST OPH Ranjit Mcdonald M.D. Social History Tobacco Use Types Packs/Day Years Used Date Smoking Tobacco: Never Assessed Sex and Gender Information Value Date Recorded Sex Assigned at Male 08/16/2023 8:01 PM COMMUNITY YOUTH SECRETARY Gender Identity Male 12/22/2017 5:18 AM CDT Sexual Orientation Straight 12/22/2017 5: 18 AM CDT documented as of this encounter Progress Notes * Ranjit Mcdonald M.D. - 02/23/2005 12:00 AM CDT Eye General CHIEF COMPLAINT second opinion regarding cataracts and elevated pressures HISTORY OF PRESENT ILLNESS pts doctor at home told him he has cataracts and needs surgery, wants another opinion. blurred in the distance, and sees better at near he thinks without glasses. also told he had elevated pressures and was to start drops. hasnt done this yet as he wanted another opinion. PH: Eyes aren't as they used to be; clarity not the same as 4-5 years ago. First glasses in second grade. 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 Also recently told that intraocular pressures were elevated (OD = 24 OS = 21). 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 Plan: monitor periodically. #2 Cataract, both eyes. Plan: monitor periodically. #3 Macular epiretinal membrane both eyes, mild. Plan: get OCT (both maculas); monitor periodically. #4 Localized retinal detachments both eyes, with multiple peripheral retinal breaks both eyes. Seen with Dr. House. Plan: see below. #5 Refractive error (myopia, presbyopia). Schedule with Dr. House for treatment of peripheral retinal pathology, both eyes in 2 separate sessions; in next 3 weeks. Warned of symptoms of retinal detachment; seek care sooner should they develop. 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 #2 Cataract, both eyes. 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 CDM Reports - [facility] Id: [id number] Status: Fnl documented in this encounter Plan of Treatment Upcoming Encounters Date Type Department Care Team (Latest Contact Info) Description 01/24/2024 10:30 AM CDT Ancillary Procedure Department of Ophthalmology in [place], [place] [address] [place] [address] 01/24/2024 11:00 AM CDT Comprehensive Visit Department of Ophthalmology in [place], [place] [address] [place] [address] David Zeng M.D. [address] [place] [address] documented as of this encounter Visit Diagnoses Not on filedocumented in this encounter Additional Health Concerns Infection Onset Date Last Indicated Resolved Time COVID19 Pending 03/22/2021 03/22/2021 03/22/2021 5 :21 PM CDT COVID19 Pending 04/20/2021 04/20/2021 04/20/2021 1 1:46 AM CDT documented as of this encounter Care Teams Farmworker Livestock Relationship Specialty Start Date End Date Elsewhere, Pcp PCP - General Family Medicine 03/24/21 documented as of this encounter
--- OUTSIDE RECORDS SUMMARY | 2024-01-10 21:04 | XMS_ITS | Encounter Summary ---
Author Name Unknown Organization [facility] Address [address] [place] [address] Care Team Providers Care Qa Specialist Name Role Phone Elsewhere, Pcp Primary Care Provider Unavailabl e Encounter Details Date Type Department Care Team (Late st Contact Info) Description 01/10/2006 Historical Ophthalmology RST OPH Ranjit Mcdonald M.D. Social History Tobacco Use Types Packs/Day Years Used Date Smoking Tobacco: Never Assessed Sex and Gender Information Value Date Recorded Sex Assigned at Male 08/16/2023 8:01 PM WHEEL TUNER Gender Identity Male 12/22/2017 5:18 AM CDT Sexual Orientation Straight 12/22/2017 5: 18 AM CDT documented as of this encounter Progress Notes * Ranjit Mcdonald M.D. - 01/10/2006 12:00 AM CDT Eye General CHIEF COMPLAINT 4 month glaucoma check; diurnals; automated visual field HISTORY OF PRESENT ILLNESS no vision concerns, vision stable, both eyes, distance and near, six months. Automated visual field completed. 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 Diurnals (12/22): 17 - 22 OU. Visual field (12/22; automated; reliable): normal OU. Plan: monitor periodically. #2 Cataract, both eyes. Plan: monitor periodically. #3 Macular epiretinal membrane both eyes, mild. OCTs both maculas (02/20); monitor periodically. #4 Localized retinal detachments both eyes, with multiple peripheral retinal breaks both eyes. Status-post laser PC both eyes; stable. #5 Refractive error (myopia, presbyopia). Recheck 1 year (along with GME), with automated visual field. 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 #2 Cataract, both eyes. 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 CDM Reports - [facility] Id: [id number] Status: Fnl documented in this encounter Plan of Treatment Upcoming Encounters Date Type Department Care Team (Latest Contact Info) Description 01/24/2024 10:30 AM CDT Ancillary Procedure Department of Ophthalmology in [place], [place] [address] [place] [address] 01/24/2024 11:00 AM CDT Comprehensive Visit Department of Ophthalmology in [place], [place] [address] [place] [address] David Zeng M.D. [address] [place] [address] documented as of this encounter Visit Diagnoses Not on filedocumented in this encounter Additional Health Concerns Infection Onset Date Last Indicated Resolved Time COVID19 Pending 03/22/2021 03/22/2021 03/22/2021 5 :21 PM CDT COVID19 Pending 04/20/2021 04/20/2021 04/20/2021 1 1:46 AM CDT documented as of this encounter Care Teams Qa Specialist Relationship Specialty Start Date End Date Elsewhere, Pcp PCP - General Family Medicine 03/24/21 documented as of this encounter
--- OUTSIDE RECORDS SUMMARY | 2024-01-10 21:04 | XMS_ITS | Encounter Summary ---
Author Name Unknown Organization [facility] Address [address] [place] [address] Care Team Providers Care President & Founder Name Role Phone Elsewhere, Pcp Primary Care Provider Unavailabl e Encounter Details Date Type Department Care Team (Late st Contact Info) Description 04/28/2005 Historical Ophthalmology RST OPH Sim House M.D. Social History Tobacco Use Types Packs/Day Years Used Date Smoking Tobacco: Never Assessed Sex and Gender Information Value Date Recorded Sex Assigned at Male 08/16/2023 8:01 PM FACULTY PHYSICIAN Gender Identity Male 12/22/2017 5:18 AM CDT Sexual Orientation Straight 12/22/2017 5: 18 AM CDT documented as of this encounter Progress Notes * Sim House M.D. - 04/28/2005 12:00 AM CDT Eye Postoperative MULTI-VISIT DOCUMENT This document contains multiple patient visits and is available for review in Document Viewer. CDM Reports - [facility] Id: [id number] Status: Fnl documented in this encounter Plan of Treatment Upcoming Encounters Date Type Department Care Team (Latest Contact Info) Description 01/24/2024 10:30 AM CDT Ancillary Procedure Department of Ophthalmology in [place], [place] [address] [place] [address] 01/24/2024 11:00 AM CDT Comprehensive Visit Department of Ophthalmology in [place], [place] [address] [place] [address] David Zeng M.D. [address] [place] [address] documented as of this encounter Visit Diagnoses Not on filedocumented in this encounter Additional Health Concerns Infection Onset Date Last Indicated Resolved Time COVID19 Pending 03/22/2021 03/22/2021 03/22/2021 5 :21 PM CDT COVID19 Pending 04/20/2021 04/20/2021 04/20/2021 1 1:46 AM CDT documented as of this encounter Care Teams President & Founder Relationship Specialty Start Date End Date Elsewhere, Pcp PCP - General Family Medicine 03/24/21 documented as of this encounter
--- OUTSIDE RECORDS SUMMARY | 2024-01-10 21:04 | XMS_ITS | Encounter Summary ---
Author Name Unknown Organization [facility] Address [address] [place] [address] Care Team Providers Care Well Puller Name Role Phone Elsewhere, Pcp Primary Care Provider Unavailabl e Encounter Details Date Type Department Care Team (Late st Contact Info) Description 08/22/2005 Historical Ophthalmology RST OPH Ranjit Mcdonald M.D. 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 - 08/22/2005 12:00 AM CST Eye General CHIEF COMPLAINT 6 [facility] glaucoma follow up HISTORY OF PRESENT ILLNESS Pt is here for a six month [facility] follow up. Pt feels his vision has improved. No concerns at this time. 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 Plan: monitor periodically. #2 Cataract, both eyes. Plan: monitor periodically. #3 Macular epiretinal membrane both eyes, mild. OCTs both maculas (02/20); monitor periodically. #4 Localized retinal detachments both eyes, with multiple peripheral retinal breaks both eyes. Status-post laser PC both eyes; stable. #5 Refractive error (myopia, presbyopia). 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 #2 Cataract, both eyes. 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 CDM Reports - [facility] Id: [id number] Status: Fnl documented in this encounter Plan of Treatment Upcoming Encounters Date Type Department Care Team (Latest Contact Info) Description 01/24/2024 10:30 AM CDT Ancillary Procedure Department of Ophthalmology in [place], [place] [address] [place] [address] 01/24/2024 11:00 AM CDT Comprehensive Visit Department of Ophthalmology in [place], [place] [address] [place] [address] David Zeng M.D. [address] [place] [address] documented as of this encounter Visit Diagnoses Not on filedocumented in this encounter Additional Health Concerns Infection Onset Date Last Indicated Resolved Time COVID19 Pending 03/22/2021 03/22/2021 03/22/2021 5 :21 PM CDT COVID19 Pending 04/20/2021 04/20/2021 04/20/2021 1 1:46 AM CDT documented as of this encounter Care Teams Well Puller Relationship Specialty Start Date End Date Elsewhere, Pcp PCP - General Family Medicine 03/24/21 documented as of this encounter
== END 2024-01-10 21:00 | disposition home or self-care (01) ==
PROVIDERS: PCP Internal Medicine
DX: G47.33 Obstructive sleep apnea (adult) (pediatric) (principal)
CPT/HCPCS: 95811

== ENCOUNTER 2024-01-11 08:46 | Outpatient (CLI) | payer MEDICARE, BC, SELFPAY ==
--- NOTE | 2024-01-11 08:45 | MM_ITS ---
Patient: EMI STARK Facility:?[facility] Patient ID:?[id number] Site Patient ID:?[id number] Site :?[id number] Study:?XRay-Breast Bilateral 3D W/CAD-01/11/2024 9:42:22 AM Ordering Physician:Caridad Hawthorne Final Report: DIGITAL DIAGNOSTIC BILATERAL MAMMOGRAM USING TOMOSYNTHESIS AND COMPUTER-AIDED DETECTION CLINICAL HISTORY: RIGHT breast pain. COMPARISON: None. TECHNIQUE: Digital BILATERAL mammogram in four projections. Tomosynthesis and CAD utilized. BREAST COMPOSITION: There are areas of scattered fibroglandular density. FINDINGS: 3D CC/MLO BILATERAL mammogram images submitted. Subareolar fibroglandular tissue present on the RIGHT. No suspicious masses or architectural distortion. No adenopathy. No suspicious calcifications. IMPRESSION: Moderate subareolar gynecomastia RIGHT breast. No suspicious findings. No malignancy. RECOMMENDATIONS: Clinical follow-up. Results and recommendations discussed with the patient. BI-RADS Category 2: Benign A lay language report of this examination will be provided to the patient. Dictated by Lee Ennis MD @ 01/11/2024 9:47:36 AM jj/Dictated by: Lee Ennis MD @ 01/11/2024 9:47:00 AM Signed by:?Lee Ennis MD @01/11/2024 1:02:21 PM (Electronic Signature)
--- OUTSIDE RECORDS SUMMARY | 2024-01-11 08:50 | XMS_ITS | Encounter Summary ---
Author Name Unknown Organization [facility] Address [address] [place] [address] Care Team Providers Care Lead Software Qa Engineer Name Role Phone Elsewhere, Pcp Primary Care Provider Unavailabl e Reason for Visit * Reason Onset Date Comments Pre-visit Intake 11/27/2023 Encounter Details Date Type Department Care Team (Latest Contact Info) Description 11/27/2023 2:00 PM CDT Clinical Communication Virtual Review in [address] [place] [address] Pre-visit Intake Social History Tobacco Use Types [...] often do you attend chur ch or mormon services? More than 4 times per year 03/21/2021 Do you belong to any clubs o r organizations such as adventism groups, unions, fraternal or athletic groups, or [...] and heating? 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 [address] [place] [address] documented as of this encounter Visit Diagnoses Not on filedocumented in this encounter Care Teams Lead Software Qa Engineer Relationship Specialty Start Date End Date Elsewhere, Pcp PCP - General Family Medicine 03/24/21 documented as of this encounter
--- OUTSIDE RECORDS SUMMARY | 2024-01-11 08:50 | XMS_ITS | Encounter Summary ---
Author Name Unknown Organization [facility] Address [address] [place] [address] Care Team Providers Care Customs Inspector Name Role Phone Elsewhere, Pcp Primary Care Provider Unavailabl e Encounter Details Date Type Department Care Team (Latest Contact Info) Description 11/29/2023 7:57 AM CDT - 11/29/2023 8:57 AM CDT Hospital Encounter Department of Laboratory Medicine and Pathology, [facility], in [place], [place] [address] [place] [address] Johny Martínez Jr., M.D. [address] [place] [address] Prosthesis Mitral Valve; Prosthesis Aortic Valve; Aneurysm [...] often do you attend chur ch or yazdanism services? More than 4 times per year 03/21/2021 Do you belong to any clubs o r organizations such as caodaism groups, unions, fraternal or athletic groups, or [...] and heating? Not hard at all 08/16/2023 [facility] of Occupat ional Health - Occupational Stress [...] your living situation today? I have a [facility] place to live 08/16/2023 Education Answer Date Recorded What is the highest level of school you have completed or the highest degree you have received? Master's degree (e.g., MA, MS, Fanny, MEd, TECHNICIAN AUTOMATED EQUIPMENT, [employer]) 12/25/2020 Sex and Gender Information Value Date Recorded Sex Assigned at Male 08/16/2023 8:01 PM ETHOLOGIST Gender Identity Male 12/22/2017 5:18 AM CDT [...] CDT Ancillary Procedure Department of Ophthalmology in [place], [place] [address] [place] [address] 01/24/2024 11:00 AM CDT Comprehensive Visit Department of Ophthalmology in [place], [place] [address] [place] [address] David Zeng M.D. [address] [place] [address] documented as of this encounter Procedures Procedure [...] Johny Martínez Jr., M.D. LAB BLOOD ADD-ON [place] [address] [place] [address], [facility] 200 [place] [address] * Lipid Panel (11/29/2023 8:22 AM CDT) Pathologist [facility] Triglycerides 67 mg/dL 11/29/2023 11:01 AM CDT [...] Johny Martínez Jr., M.D. LAB BLOOD ADD-ON [facility] [place] [address], [facility] 200 [place] [address] * (ABNORMAL) CBC with Differential, Blood (11/29/2023 [...] Johny Martínez Jr., M.D. LAB BLOOD ADD-ON [facility] 200 [place] [address], [facility] [address] 200 [place] [address] * (ABNORMAL) Prothrombin Time (PT) (11/29/2023 8:22 [...] BLOOD ADD-ON Performing Organization Address City/[facility]/ZIP Co de Phone Number [facility] 200 [place], [place] [phone] [place] [address] 200 [place] [address] * Sodium (11/29/2023 8:22 AM CDT) Sodium, S 142 135 - 145 mmol/L 11/29/2023 11:01 AM CDT DTL Blood (Blood, Venous) 11/29/2023 8:22 AM CDT 11/29/2023 9:01 AM CDT Johny Martínez Jr., M.D. LAB BLOOD ADD-ON Performing Organization Address City/[facility]/ZIP Co de Phone Number [facility] 200 [place], [place] [phone] [place] [address] 200 [place] [address] * Potassium (11/29/2023 8:22 AM CDT) Potassium, S 4.2 3.6 - 5.2 mmol/L 11/29/2023 11:01 AM CDT DTL Blood (Blood, Venous) 11/29/2023 8:22 AM CDT 11/29/2023 9:01 AM CDT Johny Martínez Jr., M.D. LAB BLOOD ADD-ON [facility] 200 [place], [place] [phone] [place] [address] 200 [place] [address] * (ABNORMAL) Glucose, Fasting (11/29/2023 8:22 AM CDT) Glucose, P 114(H) 70 - 100 mg/dL 11/29/2023 9:52 AM CDT DTL Last Intake 2 hr 11/29/2023 9:01 AM CDT DTL Blood (Blood, Venous) 11/29/2023 8:22 AM CDT 11/29/2023 9:01 AM CDT Johny Martínez Jr., M.D. LAB BLOOD NON AD D-ON [facility] [address] 200 [place] [address] * Creatinine with Estimated GFR (11/29/2023 8:22 AM CDT) Creatinine 1.17 0.74 - 1.35 mg/dL 11/29/2023 11:01 AM CDT DTL Estimated GFR (eGFR) 61 >=60 mL/min/BSA 11/29/2023 11:01 AM CDT DTL Comment: Estimated GFR calculated using the 2020 CKD_EPI creatinine equation. Blood (Blood, Venous) 11/29/2023 8:22 AM CDT 11/29/2023 9:01 AM CDT Johny Martínez Jr., M.D. LAB BLOOD ADD-ON [facility] 200 [place], [place] [phone] [place] [address] [facility] 200 [place] [address] * Albumin (11/29/2023 8:22 AM CDT) Albumin, S 3.9 3.5 - 5.0 g/dL 11/29/2023 11:01 AM CDT DTL Blood (Blood, Venous) 11/29/2023 8:22 AM CDT 11/29/2023 9:01 AM CDT Johny Martínez Jr., M.D. 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
--- OUTSIDE RECORDS SUMMARY | 2024-01-11 08:50 | XMS_ITS | Encounter Summary ---
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 200 [place] [address] 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 200 [place] [address] [facility] Referral ID Status Reason Start Date Expiration Date Visits Re quested Visits Authorized [id number] Closed 11/27/2023 11/26/2024 1 1 Encounter Details Date Type Department Care Team (Latest Contact Info) Description 11/29/2023 9:15 AM CDT - 11/29/2023 11:59 PM CDT Hospital Encounter Department of Cardiovascular Diseases in [place], [place] [address] [place] [address] Johny Martínez Jr., M.D. 200 [place] [address] Prosthesis Mitral Valve; Prosthesis Aortic Valve; Aneurysm [...] week 03/21/2021 How often do you attend [facility] or voodoo services? More than 4 times per year 03/21/2021 Do you belong to any clubs o r organizations such as episcopalian groups, unions, fraternal or athletic groups, or [...] and heating? Not hard at all 08/16/2023 [facility] of Occupat ional Health - [...] your living situation today? I have a [facility] place to live 08/16/2023 Education Answer Date Recorded What is the highest level of school you have completed or the highest degree you have received? 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 [address] [place] [address] documented as of this encounter Procedures Procedure [...] estimated ejection fraction range 50% - 55% (sdpe-rj-[id number] variability). 2. Status post 27mm [facility] Tru [...] graphics), estimated ejectionfraction range 50% - 55% ([id number]-cn-[id number] variability). 2. Status post 27mm [facility] Tru [...] (HCC) documented in this encounter Care Teams Candy Roller Relationship Specialty Start Date End Date Elsewhere, Pcp PCP - General Family Medicine 03/24/21 documented as of this encounter
--- OUTSIDE RECORDS SUMMARY | 2024-01-11 08:50 | XMS_ITS | Encounter Summary ---
Author Name Unknown Organization [facility] Address [address] [place] [address] Care Team Providers Care Admission Liaison Name Role Phone Elsewhere, Pcp Primary Care Provider Unavailabl e Encounter Details Date Type Department Care Team ([facility] st Contact Info) Description 12/01/2023 Documentation Department of Cardiovascular Medicine in [place], [place] [address] [place] [address] Johny Martínez Jr., M.D. [address] [place] [address] Social History Tobacco Use Types Packs/Day Years [...] often do you attend chur ch or jain services? More than 4 times per year 03/21/2021 Do you belong to any clubs o r organizations such as mormonism groups, unions, fraternal or athletic groups, or [...] and heating? Not hard at all 08/16/2023 [facility] of Occupat ional Health - Occupational [...] your living situation today? [facility] 08/16/2023 Education Answer Date Recorded What is the highest level of school you have completed or the highest degree you have received? 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 [address] [place] [address] documented as of this encounter Visit Diagnoses Not on filedocumented in this encounter Care Teams Admission Liaison Relationship Specialty Start Date End Date Elsewhere, Pcp PCP - General Family Medicine 03/24/21 documented as of this encounter
--- OUTSIDE RECORDS SUMMARY | 2024-01-11 08:50 | XMS_ITS | Clinical Summary ---
Author Name Unknown Organization [facility] Address [address] [place] [address] Care Team Providers Care Agricultural Produce Packer Name Role Phone Elsewhere, Pcp Primary Care Provider Unavailabl e Source Comments Patient records contain information from all sites at [facility]. For routine questions regarding patient records, call [phone] during business hours, M-F 8:00 AM - 5:00 PM Central Time. 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 11/29/2023 4:00 PM CDT Diagnostic Division of Pulmonary Medicine in [place], [place] [address] [place] [address] Johny Martínez Jr., M.D. Fibrosis Pulmonary (HCC); Ectopy Atrial 11/29/2023 2:00 PM CDT Office Visit Department of Cardiovascular Medicine in [place], [place] [address] [place] [address] Johny Martínez Jr., M.D. 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 from Last 3 [...] often do you attend chur ch or holiness services? More than 4 times per year 03/21/2021 Do you belong to any clubs o r organizations such as evangelical groups, unions, fraternal or athletic groups, or [...] and heating? Not hard at all 08/16/2023 [facility] of Occupat ional Health - Occupational [...] your living situation today? I have a [facility] place to live 08/16/2023 Education Answer Date Recorded What is the highest level of school you have completed or the highest degree you have received? Master's degree (e.g., MA, MS, Fanny, MEd, DEVELOPMENT TECHNICIAN, [employer]) 12/25/2020 Sex and Gender Information Value Date Recorded Sex Assigned at Male 08/16/2023 8:01 PM TIN POT OPERATOR Gender Identity Male 12/22/2017 5:18 AM CDT [...] CDT Ancillary Procedure Department of Ophthalmology in [place], [place] [address] [place] [address] 01/24/2024 11:00 AM CDT Comprehensive Visit Department of Ophthalmology in [place], [place] [address] [place] [address] David Zeng M.D. [address] [place] [address] Health Maintenance Due Date Last Done Comments [...] history exists Medical Devices Implanted Type Area Dispatcher Service Device Identifier Shelf Expiration Date Model / Serial / Lot Valve Trifecta 27mm Gt - [id number] Implanted:Qty: 1 on 11/20/[address] Cardiac Valve [address]hesis Aorta [employer] (a Division of [employer]) Description:Device Manufactu rer - [employer]. Body Location - Other. Aortic. Device Status Text - [id number]. Patch Dual Mesh 1mm 7.5 X 10 - [id number] Implanted:Qty: 1 on 10/29/2009 Mesh or Patch Other/Legacy - See Implant Description [place] Description:Device Manufactu rer - [employer] [place] [employer] Body Location - Other. Not Applicable. Device Status Text - [id number]. Misc Other- 0 Implanted:10/19 (Quantity not on file) Misc Other Mouth Description:Tooth implant Lens Tcn [id number] Bicnvx +14.0d - [id number] - [id number] Implanted:Qty: 1 on 03/24/2021 by David Zeng M.D. at [facility] Ocular Lens Left: Eye [employer] (Previously SHELIA) 10/12/2024 [id number] / [id number] / Lens Tcn [id number] Bicnvx +13.5d - [id number] - [id number] Implanted:Qty: 1 on 04/21/2021 by David Zeng M.D. at [facility] Ocular Lens Right: Eye [employer] (Previously SHELIA) 11/28/2024 [id number] / [id number] / Procedures Procedure Name Priority Date/Time [...] OUTSIDE DX CHEST Routine 11/23/2023 3:40 PM TIN POT OPERATOR OUTSIDE US Routine 11/23/2023 8:45 AM TIN POT OPERATOR from Last 3 Months Results * (TTE) [...] estimated ejection fraction range 50% - 55% (twhr-ls-[id number] variability). 2. Status post 27mm [facility] Tru [...] graphics), estimated ejectionfraction range 50% - 55% (rbsk-kz-nnkr variability). 2. Status post 27mm [facility] Tru [...] CDT) Ventricular Rate ECG/Min 81 BPM MUSE ID Interval 136 ms MUSE QRSD Interval 150 ms MUSE QT Interval 416 ms MUSE QTC Interval 483 ms MUSE R [place] -61 degrees MUSE T Wave [place] 51 degrees MUSE 11/29/2023 8:39 AM CDT [...] Johny Martínez Jr., M.D. LAB BLOOD ADD-ON [facility] [address] [place] [address], [place] [facility] [address] [place] [address] * NT-Pro B-Type Natriuretic Peptide (BNP) (11/29/2023 [...] M.D. LAB BLOOD ADD-ON Performing Organization Address City/[facility] Co de Phone Number [facility] [address] [facility] 200 [place] [address] * (ABNORMAL) Prothrombin Time (PT) (11/29/2023 8:22 AM CDT) Pathologist [facility] Prothrombin Time, P 31.1(H) 9.4 [...] M.D. LAB BLOOD ADD-ON Performing Organization Address City/[facility]/ZIP Co de Phone Number [facility] 200 [place] [address], [facility] [address] [place] [address] * (ABNORMAL) CBC with Differential, Blood (11/29/2023 [...] Johny Martínez Jr., M.D. LAB BLOOD ADD-ON [facility] 200 [place] [address], [facility] [address] [place] [address] [facility] 200 [place] [address] * Sodium (11/29/2023 8:22 AM CDT) Sodium, S 142 135 - 145 mmol/L 11/29/2023 11:01 AM CDT DTL Blood (Blood, Venous) 11/29/2023 8:22 AM CDT 11/29/2023 9:01 AM CDT Johny Martínez Jr., M.D. LAB BLOOD ADD-ON [facility] 200 [place], [place] [address] 200 [place] [address] * Potassium (11/29/2023 8:22 AM CDT) Potassium, S 4.2 3.6 - 5.2 mmol/L 11/29/2023 11:01 AM CDT DT Blood (Blood, Venous) 11/29/2023 8:22 AM CDT 11/29/2023 9:01 AM CDT Johny Martínez Jr., M.D. LAB BLOOD ADD-ON [facility] [address] [place], [place] [address] 200 [place] [address] * (ABNORMAL) Glucose, Fasting (11/29/2023 8:22 AM CDT) Glucose, P 114(H) 70 - 100 mg/dL 11/29/2023 9:52 AM CDT DTL Last Intake 2 hr 11/29/2023 9:01 AM CDT DTL Blood (Blood, Venous) 11/29/2023 8:22 AM CDT 11/29/2023 9:01 AM CDT Johny Martínez Jr., M.D. LAB BLOOD NON AD D-ON [facility] [address] [facility] [address] [place] [address] * Creatinine with Estimated GFR (11/29/2023 8:22 AM CDT) Creatinine 1.17 0.74 - 1.35 mg/dL 11/29/2023 11:01 AM CDT DTL Estimated GFR (eGFR) 61 >=60 mL/min/BSA 11/29/2023 11:01 AM CDT DTL Comment: Estimated GFR calculated using the 2020 CKD_EPI creatinine equation. Blood (Blood, Venous) 11/29/2023 8:22 AM CDT 11/29/2023 9:01 AM CDT Johny Martínez Jr., M.D. LAB BLOOD ADD-ON [facility] [address] [place], [place] [phone] [place] [address] [facility] 200 [place] [address] * Albumin (11/29/2023 8:22 AM CDT) Albumin, S 3.9 3.5 - 5.0 g/dL 11/29/2023 11:01 AM CDT DTL Blood (Blood, Venous) 11/29/2023 8:22 AM CDT 11/29/2023 9:01 AM CDT Johny Martínez Jr., M.D. LAB BLOOD ADD-ON [facility] [address] [place], [place] [phone] [place] [address] DTL [facility] [address] * PUL Home Overnight Oximetry (11/29/2023) 11/29/2023 [...] the recording device. Physician: Anil Barakat M.B.BCherri [id number] Narrative Procedure Note Anil Barakat M.B.B.S. - [...] from the recordingdevice. Physician: Anil Barakat M.B.B.S [id number] Johny Martínez Jr., M.D. PFT ORDERABLES LISA FRANK * XR chest 2V-Outside Chest Xray (11/23/2023 3:40 PM TIN POT OPERATOR) Narrative [facility]IM[facility] - 11/27/2023 3:59 PM CDT [...] DIAGNOSTIC IM AGING PROCEDURES Performing Organization Address City/[facility] Co de Phone Number [facility] NA * US venous LE RT-Outside US (11/23/2023 8:45 AM TIN POT OPERATOR) Narrative IICT - 11/27/2023 3:59 PM CDT This order [...] System IMG US PROCEDURES Performing Organization Address [facility] de Phone Number [facility] NA from Last 3 Months Advance Directives For more information, please contact: [phone] Documents on File Type Date Recorded Patient Adult And Pediatric Neurologist Expl anation Advance Directives 10/26/2023 11:59 AM BODY /ORGAN DONATION Advance Directives 04/27/2018 8:52 PM Advance Directives 11/20/2017 12:00 AM [place] cy document. See document viewer. * Full Code (Latest Code Status on File) Date Activated Date Inactivated Comments 04/25/2018 9:45 PM 04/28/2018 2:47 PM Question Answer Comments Full Code: Not Discussed Due to: Patient not available Care Teams Agricultural Produce Packer Relationship Specialty Start Date End Date Elsewhere, Pcp PCP - General Family Medicine 03/24/21
--- OUTSIDE RECORDS SUMMARY | 2024-01-11 08:50 | XMS_ITS | Encounter Summary ---
Author Name Unknown Organization [facility] Address [address] [place] [address] Care Team Providers Care Scudding Inspector Name Role Phone Elsewhere, Pcp Primary Care Provider Unavailabl e Reason for Visit * Appointment Request (Routine) - Closed Specialty Diagnoses / Procedures Referred By Contac t Referred To Contact Cardiovascular Disease Referral ID Status Reason Start Date Expiration Date Visits Re quested Visits Authorized [id number] Closed 11/27/2023 11/26/2024 1 1 Encounter Details Date Type Department Care Team (Latest Contact Info) Description 11/29/2023 2:00 PM CDT Office Visit Department of Cardiovascular Medicine in [place], [place] [address] [place] [address] Johny Martínez Jr., M.D. 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 More than 4 times per year 03/21/2021 Do you belong to any clubs o r organizations such as buddhist groups, unions, fraternal or athletic groups, or [...] and heating? Not hard at all 08/16/2023 [facility] [place] of Occupat ional Health - Occupational Stress [...] your living situation today? I have a [facility] place to live 08/16/2023 Education Answer Date Recorded What is the highest level of school you have completed or the highest degree you have received? 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 I [...] cardiac standpoint. He took a trip to [facility] several months ago and wore support hose and did not have any evidence of lower limb deep venous thrombosis at that time. He recently went to [place] by plane and then drove a car [...] treatment for one week. In the hospital [place] he was found to have an irregular [...] in the [place] because of [...] #4 Pulmonary fibrosis He is a retired [employer] are two and may have inhaled a [...] CDT Ancillary Procedure Department of Ophthalmology in [place], [place] [address] [place] [address] 01/24/2024 11:00 AM CDT Comprehensive Visit Department of Ophthalmology in [place], [place] [address] [place] [address] David Zeng M.D. [address] [place] [phone] documented as of this encounter Results * PUL Home Overnight Oximetry (11/29/2023) 11/29/2023 Impressions [place] EMANUEL FRANK - 12/01/2023 6:37 AM CDT [...] the recording device. Physician: Anil Barakat M.B.B.S [id number] Narrative Procedure Note Anil Barakat M.B.B.S. - [...] from the recordingdevice. Physician: Anil Barakat M.B.B.S [id number] Johny Martínez Jr., M.D. 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
--- OUTSIDE RECORDS SUMMARY | 2024-01-11 08:50 | XMS_ITS | Encounter Summary ---
Author Name Unknown Organization [facility] Address [address] [place] [address] Care Team Providers Care Clinical Trials Nurse Name Role Phone Elsewhere, Pcp Primary Care Provider Unavailabl e Encounter Details Date Type Department Care Team ([facility] st Contact Info) Description 11/29/2023 4:00 PM CDT Diagnostic Division of Pulmonary Medicine in [place], [place] [address] [place] [address] Johny Martínez Jr., M.D. [address] [place] [address] Fibrosis Pulmonary (HCC); Ectopy Atrial Social History [...] and heating? Not hard at all 08/16/2023 [facility] [place] of Occupat ional Health - Occupational Stress [...] your living situation today? I have a [facility] place to live 08/16/2023 Education Answer Date Recorded What is the highest level of school you have completed or the highest degree you have received? Master's degree (e.g., MA, MS, Fanny, MEd, CLIP LOADING MACHINE ADJUSTER, [employer]) 12/25/2020 Sex and Gender Information Value Date Recorded Sex Assigned at Male 08/16/2023 8:01 PM PRIMER INSERTING MACHINE OPERATOR Gender Identity Male 12/22/2017 5:18 AM CDT Sexual Orientation Straight 12/22/2017 5: 18 AM CDT documented as of this encounter Plan of Treatment Upcoming Encounters Date Type Department Care Team (Latest Contact Info) Description 01/24/2024 10:30 AM CDT Ancillary Procedure Department of Ophthalmology in [place], [place] [address] [place] [address] 01/24/2024 11:00 AM CDT Comprehensive Visit Department of Ophthalmology in [place], [place] [address] [place] [address] David Zeng M.D. [address] [place] [address] documented as of this encounter Procedures Procedure Name Priority Date/Time Associated Diagnosis Comments PUL HOME OVERNIGHT OXIMETRY Routine 11/29/2023 Fibrosis Pulmonary (HCC) Ectopy Atrial documented in this encounter Results * PUL Home Overnight Oximetry (11/29/2023) 11/29/2023 Impressions [place] [facility]ION EAP - 12/01/2023 6:37 AM CDT [...] the recording device. Physician: Anil Barakat M.B.B.S [id number] Narrative Procedure Note Anil Barakat M.B.B.S. - [...] from the recordingdevice. Physician: Anil Barakat M.B.B.S [id number] Johny Martínez Jr., M.D. PFT ORDERABLES [facility] documented in this encounter Visit Diagnoses Diagnosis Fibrosis Pulmonary (HCC) Ectopy Atrial documented in this encounter Care Teams Clinical Trials Nurse Relationship Specialty Start Date End Date Elsewhere, Pcp PCP - General Family Medicine 03/24/21 documented as of this encounter
--- OUTSIDE RECORDS SUMMARY | 2024-01-11 08:50 | XMS_ITS | Encounter Summary ---
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 [address] [place] [phone] [facility] Referral ID Status Reason Start Date Expiration Date Visits Re quested Visits Authorized [id number] Closed 11/27/2023 11/26/2024 1 1 Encounter Details Date Type Department Care Team (Latest Contact Info) Description 11/29/2023 8:58 AM CDT - 11/29/2023 9:14 AM CDT Hospital Encounter Department of Radiology, [facility], in [place], [place] [address] [place] [address] Johny Martínez Jr., M.D. 200 [place] [address] Prosthesis Mitral Valve; Prosthesis Aortic Valve; Aneurysm [...] week 03/21/2021 How often do you attend [facility] or restoration services? More than 4 times per year 03/21/2021 Do you belong to any clubs o r organizations such as yarsani groups, unions, fraternal or athletic groups, or [...] and heating? Not hard at all 08/16/2023 [facility] [place] of Occupat ional Health - Occupational Stress [...] your living situation today? I have a [facility] place to live 08/16/2023 Education Answer Date Recorded What is the highest level of school you have completed or the highest degree you have received? Master's degree (e.g., MA, MS, Fanny, MEd, CORN HUSK BALER, [employer]) 12/25/2020 Sex and Gender Information Value Date Recorded Sex Assigned at Male 08/16/2023 8:01 PM COMMUNITY OUTREACH SPECIALIST Gender Identity Male 12/22/2017 5:18 AM [...] CDT Ancillary Procedure Department of Ophthalmology in [place], [place] [address] [place] [phone] 01/24/2024 11:00 AM CDT Comprehensive Visit Department of Ophthalmology in [place], [place] [address] [place] [phone] David Zeng M.D. [address] [place] [phone] documented as of this encounter Procedures Procedure [...] (HCC) documented in this encounter Care Teams Pony Roll Finisher Relationship Specialty Start Date End Date Elsewhere, Pcp PCP - General Family Medicine 03/24/21 documented as of this encounter
--- OUTSIDE RECORDS SUMMARY | 2024-01-11 08:50 | XMS_ITS ---
Author Name Unknown Organization [facility] Address [address] [place] [address] Care Team Providers Care Cloud Systems Administrator Name Role Phone Unavailable Unavailable Unavailable Surgery Details Not on file Complications Check Surgery Details section. Procedure Estimated Blood Loss Check Surgery Details section. Procedure Findings Check Surgery Details section. Procedure Specimens Taken Check Surgery Details section.
--- OUTSIDE RECORDS SUMMARY | 2024-01-11 08:50 | XMS_ITS | Referral Summary ---
Author Name Unknown Organization [facility] Address [address] [place] [address] Care Team Providers Care Drum Builder Name Role Phone Elsewhere, Pcp Primary Care Provider Unavailabl e Source Comments Patient records contain information from all sites at [facility]. For routine questions regarding patient records, call [phone] during business hours, M-F 8:00 AM - 5:00 PM Central Time. Record requests for emergency care only can be directed to [phone] at any time.[facility] Encounters Date Type Department Care Team Description 12/01/2023 Documentation Department of Cardiovascular Medicine in [place], [place] [address] [place] [address] Johny Martínez Jr., M.D. 11/29/2023 4:00 PM CDT Diagnostic Division of Pulmonary Medicine in [place], [place] [address] [place] [phone] Johny Martínez Jr., M.D. Fibrosis Pulmonary (HCC); Ectopy Atrial 11/29/2023 8:58 AM CDT - 11/29/2023 9:14 AM CDT Hospital Encounter Department of Radiology, [facility], in [place], [place] [address] [place] [address] Johny Martínez Jr., M.D. 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 More than 4 times per year 03/21/2021 Do you belong to any clubs o r organizations such as quaker groups, unions, fraternal or athletic groups, or [...] and heating? Not hard at all 08/16/2023 [facility] [place] of Occupat ional Health - Occupational Stress [...] your living situation today? I have a [facility] place to live 08/16/2023 Education Answer Date Recorded What is the highest level of school you have completed or the highest degree you have received? Master's degree (e.g., MA, MS, Fanny, MEd, DEVELOPER PROVER UPHOLSTERING, [employer]) 12/25/2020 Sex and Gender Information Value Date Recorded Sex Assigned at Male 08/16/2023 8:01 PM HEAD SAWYER AUTOMATIC Gender Identity Male 12/22/2017 5:18 AM CDT [...] CDT Ancillary Procedure Department of Ophthalmology in [place], [place] [address] [place] [address] 01/24/2024 11:00 AM CDT Comprehensive Visit Department of Ophthalmology in [place], [place] [address] [place] [address] David Zeng M.D. [address] [place] [address] Medical Devices Implanted Type Area Telegraph Editor Device Identifier Shelf Expiration Date Model / Serial / Lot Valve Trifecta 27mm Gt - [id number] Implanted:Qty: 1 on 11/20/[address] A[address] [employer] (a Division of [employer]) Description:Device Manufactu rer - [employer]. Body Location - Other. Aortic. Device Status Text - [id number]. Patch Dual Mesh 1mm 7.5 X 10 - [id number] Implanted:Qty: 1 on 10/29/2009 Mesh or Patch Other/Legacy - See Implant Description [place] Description:Device Manufactu rer - [employer] [place] [employer] Body Location - Other. Not Applicable. Device Status Text - [id number]. Misc Other- 0 Implanted:10/19 (Quantity not on file) Misc Other Mouth Description:Tooth implant Lens Tcn [id number] Bicnvx +14.0d - [id number] - [id number] Implanted:Qty: 1 on 03/24/2021 by David Zeng M.D. at [facility] [employer]onda Ocular Lens Left: Eye [employer] (Previously SHELIA) 10/12/2024 [id number] / [id number] / Lens Tcn [id number] Bicnvx +13.5d - [id number] - [id number] Implanted:Qty: 1 on 04/21/2021 by David Zeng M.D. at [facility] [employer]onda Ocular Lens Right: Eye [employer] (Previously SHELIA) 11/28/2024 [id number] / [id number] / Procedures Procedure Name Priority Date/Time [...] OUTSIDE DX CHEST Routine 11/23/2023 3:40 PM HEAD SAWYER AUTOMATIC OUTSIDE US Routine 11/23/2023 8:45 AM HEAD SAWYER AUTOMATIC from Last 3 Months Results * (TTE) [...] estimated ejection fraction range 50% - 55% (wtrg-pv-vesq variability). 2. Status post 27mm [employer] [...] graphics), estimated ejectionfraction range 50% - 55% (dqbe-iw-qyab variability). 2. Status post 27mm [employer] [...] CDT) Ventricular Rate ECG/Min 81 BPM MUSE DC Interval 136 ms MUSE QRSD Interval 150 ms MUSE QT Interval 416 ms MUSE QTC Interval 483 ms MUSE R [place] -61 degrees MUSE T Wave [place] 51 degrees MUSE 11/29/2023 8:39 AM CDT [...] Johny Martínez Jr., M.D. LAB BLOOD ADD-ON [facility] 200 [place] [address], [facility] 200 [place] [address] * NT-Pro B-Type Natriuretic Peptide (BNP) (11/29/2023 [...] Johny Martínez Jr., M.D. LAB BLOOD ADD-ON [facility] 200 [place] [address], [facility] 200 [place] [address] * (ABNORMAL) Prothrombin Time (PT) (11/29/2023 8:22 [...] Johny Martínez Jr., M.D. LAB BLOOD ADD-ON [facility] [address] [place] [address], [facility] 200 [place] [address] * (ABNORMAL) CBC with Differential, Blood (11/29/2023 [...] Johny Martínez Jr., M.D. LAB BLOOD ADD-ON [facility] 200 [place], [place] [phone] [place] [address] [address] [place], [place] [phone] [place] [address] 200 [place] [address] * Sodium (11/29/2023 8:22 AM CDT) Sodium, S 142 135 - 145 mmol/L 11/29/2023 11:01 AM CDT DTL Blood (Blood, Venous) 11/29/2023 8:22 AM CDT 11/29/2023 9:01 AM CDT Johny Martínez Jr., M.D. LAB BLOOD ADD-ON [facility] [address] [place], [place] [address] [place] [address] 200 [place] [address] * Potassium (11/29/2023 8:22 AM CDT) Potassium, S 4.2 3.6 - 5.2 mmol/L 11/29/2023 11:01 AM CDT DTL Blood (Blood, Venous) 11/29/2023 8:22 AM CDT 11/29/2023 9:01 AM CDT Johny Martínez Jr., M.D. LAB BLOOD ADD-ON Performing Organization Address City/[facility]/ZIP Co de Phone Number [facility] [address] 200 [place] [address] * (ABNORMAL) Glucose, Fasting (11/29/2023 8:22 AM CDT) Glucose, P 114(H) 70 - 100 mg/dL 11/29/2023 9:52 AM CDT DTL Last Intake 2 hr 11/29/2023 9:01 AM CDT DTL Blood (Blood, Venous) 11/29/2023 8:22 AM CDT 11/29/2023 9:01 AM CDT Johny Martínez Jr., M.D. LAB BLOOD NON AD D-ON Performing Organization Address [facility] Co de Phone Number [facility] 200 [place], [place] [phone] [place] [address] [facility] 200 [place] [address] * Creatinine with Estimated GFR (11/29/2023 8:22 AM CDT) Creatinine 1.17 0.74 - 1.35 mg/dL 11/29/2023 11:01 AM CDT DTL Estimated GFR (eGFR) 61 >=60 mL/min/BSA 11/29/2023 11:01 AM CDT DTL Comment: Estimated GFR calculated using the 2020 CKD_EPI creatinine equation. Blood (Blood, Venous) 11/29/2023 8:22 AM CDT 11/29/2023 9:01 AM CDT Johny Martínez Jr., M.D. LAB BLOOD ADD-ON Performing Organization Address City/[facility]/ZIP Co de Phone Number [facility] 200 [place] [address], [facility] 200 [place] [address] * Albumin (11/29/2023 8:22 AM CDT) Albumin, S 3.9 3.5 - 5.0 g/dL 11/29/2023 11:01 AM CDT DTL Blood (Blood, Venous) 11/29/2023 8:22 AM CDT 11/29/2023 9:01 AM CDT Johny Martínez Jr., M.D. LAB BLOOD ADD-ON [facility] [address] [place] [address], [place] [facility] [address] [place] [address] * PUL Home Overnight Oximetry (11/29/2023) 11/29/2023 Impressions [place] N[facility]ION EAP - 12/01/2023 6:37 AM CDT [...] the recording device. Physician: Anil Barakat M.B.B.S [id number] Narrative Procedure Note Anil Barakat M.B.B.S. - [...] disconnected from the recordingdevice. Physician: Anil Barakat M.B.BOlmanS [id number] Johny Martínez Jr., M.D. PFT ORDERABLES Performing Organization Address City/[facility] Co de Phone Number [place] [facility] E[facility] * XR chest 2V-Outside Chest Xray (11/23/2023 3:40 PM HEAD SAWYER AUTOMATIC) Narrative [facility] - 11/27/2023 3:59 PM CDT [...] DIAGNOSTIC IM AGING PROCEDURES Performing Organization Address [facility] de Phone Number [facility] NA * US venous LE RT-Outside US (11/23/2023 8:45 AM HEAD SAWYER AUTOMATIC) Narrative [facility] - 11/27/2023 3:59 PM CDT [...] System IMG US PROCEDURES Performing Organization Address City/[facility] Co de Phone Number [facility] NA from Last 3 Months Advance Directives For more information, please contact: [phone] Documents on File Type Date Recorded Patient Demolition Engineer Expl anation Advance Directives 10/26/2023 11:59 AM BODY /ORGAN DONATION Advance Directives 04/27/2018 8:52 PM Advance Directives 11/20/2017 12:00 AM Lega cy document. See document viewer. * Full Code (Latest Code Status on File) Date Activated Date Inactivated Comments 04/25/2018 9:45 PM 04/28/2018 2:47 PM Question Answer Comments Full Code: Not Discussed Due to: Patient not available Care Teams Drum Builder Relationship Specialty Start Date End Date Elsewhere, Pcp PCP - General Family Medicine 03/24/21
--- OUTSIDE RECORDS SUMMARY | 2024-01-11 08:51 | XMS_ITS | Encounter Summary ---
Author Name Unknown Organization [facility] Address [address] [place] [address] Care Team Providers Care Billing Coordinator Name Role Phone Elsewhere, Pcp Primary Care Provider Unavailabl e Encounter Details Date Type Department Care Team (Late st Contact Info) Description 04/28/2005 Historical Ophthalmology [facility] Sim House M.D. Social History Tobacco Use Types Packs/Day Years Used Date Smoking Tobacco: Never Assessed Sex and Gender Information Value Date Recorded Sex Assigned at Male 08/16/2023 8:01 PM DOPSTER Gender Identity Male 12/22/2017 5:18 AM CDT Sexual Orientation Straight 12/22/2017 5: 18 AM CDT documented as of this encounter Progress Notes * Sim House M.D. - 04/28/2005 12:00 AM CDT Eye Postoperative MULTI-VISIT DOCUMENT This document contains multiple patient visits and is available for review in Document Viewer. CDM Reports - EYEPO Id: [id number] Status: Fnl documented in this encounter Plan of Treatment Upcoming Encounters Date Type Department Care Team (Latest Contact Info) Description 01/24/2024 10:30 AM CDT Ancillary Procedure Department of Ophthalmology in [place], [place] [address] [place] [address] 01/24/2024 11:00 AM CDT Comprehensive Visit Department of Ophthalmology in [place], [place] [address] [place] [address] David Zeng M.D. [address] [place] [address] documented as of this encounter Visit Diagnoses Not on filedocumented in this encounter Additional Health Concerns Infection Onset Date Last Indicated Resolved Time COVID19 Pending 03/22/2021 03/22/2021 03/22/2021 5 :21 PM CDT COVID19 Pending 04/20/2021 04/20/2021 04/20/2021 1 1:46 AM CDT documented as of this encounter Care Teams Billing Coordinator Relationship Specialty Start Date End Date Elsewhere, Pcp PCP - General Family Medicine 03/24/21 documented as of this encounter
--- OUTSIDE RECORDS SUMMARY | 2024-01-11 08:51 | XMS_ITS | Encounter Summary ---
Author Name Unknown Organization [facility] Address [address] [place] [address] Care Team Providers Care Spring Coiling Machine Setter Name Role Phone Elsewhere, Pcp Primary Care Provider Unavailabl e Encounter Details Date Type Department Care Team (Late st Contact Info) Description 01/22/2015 Historical Ophthalmology RST OPH Janey Torres O.D. [address] [place] [address] Social History Tobacco Use Types Packs/Day Years Used Date Smoking Tobacco: Never Assessed Sex and Gender Information Value Date Recorded Sex Assigned at Male 08/16/2023 8:01 PM STORAGE ARCHITECT Gender Identity Male 12/22/2017 5:18 AM CDT [...] Refractive error (myopia, presbyopia). CDM Reports - EYESpotlime Id: [id number] Status: Fnl documented in this encounter Plan of Treatment Upcoming Encounters Date Type Department Care Team (Latest Contact Info) Description 01/24/2024 10:30 AM CDT Ancillary Procedure Department of Ophthalmology in [place], [place] [address] [place] [address] 01/24/2024 11:00 AM CDT Comprehensive Visit Department of Ophthalmology in [place], [place] [address] [place] [address] David Zeng M.D. [address] [place] [address] documented as of this encounter Visit Diagnoses Not on filedocumented in this encounter Additional Health Concerns Infection Onset Date Last Indicated Resolved Time COVID19 Pending 03/22/2021 03/22/2021 03/22/2021 5 :21 PM CDT COVID19 Pending 04/20/2021 04/20/2021 04/20/2021 1 1:46 AM CDT documented as of this encounter Care Teams Spring Coiling Machine Setter Relationship Specialty Start Date End Date Elsewhere, Pcp PCP - General Family Medicine 03/24/21 documented as of this encounter
--- OUTSIDE RECORDS SUMMARY | 2024-01-11 08:51 | XMS_ITS | Encounter Summary ---
Author Name Unknown Organization [facility] Address [address] [place] [address] Care Team Providers Care Cable Way Operator Name Role Phone Elsewhere, Pcp Primary Care Provider Unavailabl e Encounter Details Date Type Department Care Team (Late st Contact Info) Description 03/11/2005 Historical Ophthalmology RST OPH Sim House M.D. Social History Tobacco Use Types Packs/Day Years Used Date Smoking Tobacco: Never Assessed Sex and Gender Information Value Date Recorded Sex Assigned at Male 08/16/2023 8:01 PM GEOMAGNETIST Gender Identity Male 12/22/2017 5:18 AM CDT [...] to wanting a second opinion here at [place]. 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 Plan: [facility] right eye #2 Cataract, both eyes. Plan: [...] Refractive error (myopia, presbyopia). CDM Reports - [facility] Status: Fnl documented in this encounter Plan of Treatment Upcoming Encounters Date Type Department Care Team (Latest Contact Info) Description 01/24/2024 10:30 AM CDT Ancillary Procedure Department of Ophthalmology in [place], [place] [address] [place] [address] 01/24/2024 11:00 AM CDT Comprehensive Visit Department of Ophthalmology in [place], [place] [address] [place] [address] David Zeng M.D. [address] [place] [address] documented as of this encounter Visit Diagnoses Not on filedocumented in this encounter Additional Health Concerns Infection Onset Date Last Indicated Resolved Time COVID19 Pending 03/22/2021 03/22/2021 03/22/2021 5 :21 PM CDT COVID19 Pending 04/20/2021 04/20/2021 04/20/2021 1 1:46 AM CDT documented as of this encounter Care Teams Cable Way Operator Relationship Specialty Start Date End Date Elsewhere, Pcp PCP - General Family Medicine 03/24/21 documented as of this encounter
--- OUTSIDE RECORDS SUMMARY | 2024-01-11 08:51 | XMS_ITS | Encounter Summary ---
Author Name Unknown Organization [facility] Address [address] [place] [address] Care Team Providers Care Intelligence Applications Name Role Phone Elsewhere, Pcp Primary Care Provider Unavailabl e Encounter Details Date Type Department Care Team (Late st Contact Info) Description 01/10/2018 Historical Ophthalmology RST OPH Janey Torres O.D. [address] [place] [address] Social History Tobacco Use Types Packs/Day Years Used Date Smoking Tobacco: Never Sex and Gender Information Value Date Recorded Sex Assigned at Male 08/16/2023 8:01 PM INSULATION BLOWER Gender Identity Male 12/22/2017 5:18 AM CDT [...] Refractive error (myopia, presbyopia). CDM Reports - EYEIntegenX Id: [id number] Status: Fnl documented in this encounter Plan of Treatment Upcoming Encounters Date Type Department Care Team (Latest Contact Info) Description 01/24/2024 10:30 AM CDT Ancillary Procedure Department of Ophthalmology in [place], [place] [address] [place] [address] 01/24/2024 11:00 AM CDT Comprehensive Visit Department of Ophthalmology in [place], [place] [address] [place] [address] David Zeng M.D. [address] [place] [address] documented as of this encounter Visit Diagnoses Not on filedocumented in this encounter Additional Health Concerns Infection Onset Date Last Indicated Resolved Time COVID19 Pending 03/22/2021 03/22/2021 03/22/2021 5 :21 PM CDT COVID19 Pending 04/20/2021 04/20/2021 04/20/2021 1 1:46 AM CDT documented as of this encounter Care Teams Intelligence Applications Relationship Specialty Start Date End Date Elsewhere, Pcp PCP - General Family Medicine 03/24/21 documented as of this encounter
--- OUTSIDE RECORDS SUMMARY | 2024-01-11 08:51 | XMS_ITS | Encounter Summary ---
Author Name Unknown Organization [facility] Address [address] [place] [address] Care Team Providers Care Vascular Radiologist Name Role Phone Elsewhere, Pcp Primary Care Provider Unavailabl e Encounter Details Date Type Department Care Team (Late st Contact Info) Description 02/10/2010 Historical Ophthalmology RST OPH Ranjit Mcdonald M.D. Social History Tobacco Use Types Packs/Day Years Used Date Smoking Tobacco: Never Assessed Sex and Gender Information Value Date Recorded Sex Assigned at Male 08/16/2023 8:01 PM CARE INFORMATION ASSOCIATE Gender Identity Male 12/22/2017 5:18 AM CDT [...] (myopia, presbyopia). CDM Reports - EYEGEN Id: [id number] Status: Fnl documented in this encounter Plan of Treatment Upcoming Encounters Date Type Department Care Team (Latest Contact Info) Description 01/24/2024 10:30 AM CDT Ancillary Procedure Department of Ophthalmology in [place], [place] [address] [place] [address] 01/24/2024 11:00 AM CDT Comprehensive Visit Department of Ophthalmology in [place], [place] [address] [place] [address] David Zeng M.D. [address] [place] [address] documented as of this encounter Visit Diagnoses Not on filedocumented in this encounter Additional Health Concerns Infection Onset Date Last Indicated Resolved Time COVID19 Pending 03/22/2021 03/22/2021 03/22/2021 5 :21 PM CDT COVID19 Pending 04/20/2021 04/20/2021 04/20/2021 1 1:46 AM CDT documented as of this encounter Care Teams Vascular Radiologist Relationship Specialty Start Date End Date Elsewhere, Pcp PCP - General Family Medicine 03/24/21 documented as of this encounter
--- OUTSIDE RECORDS SUMMARY | 2024-01-11 08:51 | XMS_ITS | Encounter Summary ---
Author Name Unknown Organization [facility] Address [address] [place] [address] Care Team Providers Care Fishery Division Chief Name Role Phone Elsewhere, Pcp Primary Care Provider Unavailabl e Encounter Details Date Type Department Care Team (Late st Contact Info) Description 12/25/2015 Historical Ophthalmology RST OPH María Martin, C.O.A. Social History Tobacco Use Types Packs/Day Years Used Date Smoking Tobacco: Never Assessed Sex and Gender Information Value Date Recorded Sex Assigned at Male 08/16/2023 8:01 PM CURTAINS AND DRAPERIES SALESPERSON Gender Identity Male 12/22/2017 5:18 AM CDT [...] #1 Presbyopia CDM Reports - EYESV Id: [id number] Status: Fnl documented in this encounter Plan of Treatment Upcoming Encounters Date Type Department Care Team (Latest Contact Info) Description 01/24/2024 10:30 AM CDT Ancillary Procedure Department of Ophthalmology in [place], [place] [address] [place] [address] 01/24/2024 11:00 AM CDT Comprehensive Visit Department of Ophthalmology in [place], [place] [address] [place] [address] David Zeng M.D. [address] [place] [address] documented as of this encounter Visit Diagnoses Not on filedocumented in this encounter Additional Health Concerns Infection Onset Date Last Indicated Resolved Time COVID19 Pending 03/22/2021 03/22/2021 03/22/2021 5 :21 PM CDT COVID19 Pending 04/20/2021 04/20/2021 04/20/2021 1 1:46 AM CDT documented as of this encounter Care Teams Fishery Division Chief Relationship Specialty Start Date End Date Elsewhere, Pcp PCP - General Family Medicine 03/24/21 documented as of this encounter
--- OUTSIDE RECORDS SUMMARY | 2024-01-11 08:51 | XMS_ITS | Encounter Summary ---
Author Name Unknown Organization [facility] Address [address] [place] [address] Care Team Providers Care Lavender Farm Worker Name Role Phone Elsewhere, Pcp Primary Care Provider Unavailabl e Encounter Details Date Type Department Care Team (Late st Contact Info) Description 12/26/2016 Historical Ophthalmology RST OPH Janey Torres O.D. [address] [place] [address] Social History Tobacco Use Types Packs/Day Years Used Date Smoking Tobacco: Never Assessed Sex and Gender Information Value Date Recorded Sex Assigned at Male 08/16/2023 8:01 PM MARKETING OPERATIONS ASSOCIATE Gender Identity Male 12/22/2017 5:18 AM [...] (myopia, presbyopia). CDM Reports - EYEGEN Id: [id number] Status: Fnl documented in this encounter Plan of Treatment Upcoming Encounters Date Type Department Care Team (Latest Contact Info) Description 01/24/2024 10:30 AM CDT Ancillary Procedure Department of Ophthalmology in [place], [place] [address] [place] [address] 01/24/2024 11:00 AM CDT Comprehensive Visit Department of Ophthalmology in [place], [place] [address] [place] [address] David Zeng M.D. [address] [place] [address] documented as of this encounter Visit Diagnoses Not on filedocumented in this encounter Additional Health Concerns Infection Onset Date Last Indicated Resolved Time COVID19 Pending 03/22/2021 03/22/2021 03/22/2021 5 :21 PM CDT COVID19 Pending 04/20/2021 04/20/2021 04/20/2021 1 1:46 AM CDT documented as of this encounter Care Teams Lavender Farm Worker Relationship Specialty Start Date End Date Elsewhere, Pcp PCP - General Family Medicine 03/24/21 documented as of this encounter
--- OUTSIDE RECORDS SUMMARY | 2024-01-11 08:51 | XMS_ITS | Encounter Summary ---
Author Name Unknown Organization [facility] Address [address] [place] [address] Care Team Providers Care Brick And Block Mason Name Role Phone Elsewhere, Pcp Primary Care Provider Unavailabl e Encounter Details Date Type Department Care Team (Late st Contact Info) Description 03/07/2011 Historical Ophthalmology RST OPH Ranjit Mcdonald M.D. Social History Tobacco Use Types Packs/Day Years Used Date Smoking Tobacco: Never Assessed Sex and Gender Information Value Date Recorded Sex Assigned at Male 08/16/2023 8:01 PM BUTTON PUNCHER Gender Identity Male 12/22/2017 5:18 AM CDT [...] Refractive error (myopia, presbyopia). CDM Reports - EYEVanilla Breeze Id: [id number] Status: Fnl documented in this encounter Plan of Treatment Upcoming Encounters Date Type Department Care Team (Latest Contact Info) Description 01/24/2024 10:30 AM CDT Ancillary Procedure Department of Ophthalmology in [place], [place] [address] [place] [address] 01/24/2024 11:00 AM CDT Comprehensive Visit Department of Ophthalmology in [place], [place] [address] [place] [address] David Zeng M.D. [address] [place] [address] documented as of this encounter Visit Diagnoses Not on filedocumented in this encounter Additional Health Concerns Infection Onset Date Last Indicated Resolved Time COVID19 Pending 03/22/2021 03/22/2021 03/22/2021 5 :21 PM CDT COVID19 Pending 04/20/2021 04/20/2021 04/20/2021 1 1:46 AM CDT documented as of this encounter Care Teams Brick And Block Mason Relationship Specialty Start Date End Date Elsewhere, Pcp PCP - General Family Medicine 03/24/21 documented as of this encounter
--- OUTSIDE RECORDS SUMMARY | 2024-01-11 08:51 | XMS_ITS | Encounter Summary ---
Author Name Unknown Organization [facility] Address [address] [place] [address] Care Team Providers Care Metaphysician Name Role Phone Elsewhere, Pcp Primary Care Provider Unavailabl e Encounter Details Date Type Department Care Team (Late st Contact Info) Description 12/28/2015 Historical Ophthalmology RST OPH Janey Torres O.D. 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 CDM Reports - EYEGEN Id: [id number] Status: Fnl documented in this encounter Plan of Treatment Upcoming Encounters Date Type Department Care Team (Latest Contact Info) Description 01/24/2024 10:30 AM CDT Ancillary Procedure Department of Ophthalmology in [place], [place] [address] [place] [address] 01/24/2024 11:00 AM CDT Comprehensive Visit Department of Ophthalmology in [place], [place] [address] [place] [address] David Zeng M.D. [address] [place] [address] documented as of this encounter Visit Diagnoses Not on filedocumented in this encounter Additional Health Concerns Infection Onset Date Last Indicated Resolved Time COVID19 Pending 03/22/2021 03/22/2021 03/22/2021 5 :21 PM CDT COVID19 Pending 04/20/2021 04/20/2021 04/20/2021 1 1:46 AM CDT documented as of this encounter Care Teams Metaphysician Relationship Specialty Start Date End Date Elsewhere, Pcp PCP - General Family Medicine 03/24/21 documented as of this encounter
--- OUTSIDE RECORDS SUMMARY | 2024-01-11 08:51 | XMS_ITS | Encounter Summary ---
Author Name Unknown Organization [facility] Address [address] [place] [address] Care Team Providers Care Field Sales Representative Name Role Phone Elsewhere, Pcp Primary Care Provider Unavailabl e Encounter Details Date Type Department Care Team (Late st Contact Info) Description 03/28/2005 Historical Ophthalmology RST OPH Sim House M.D. Social History Tobacco Use Types Packs/Day Years Used Date Smoking Tobacco: Never Assessed Sex and Gender Information Value Date Recorded Sex Assigned at Male 08/16/2023 8:01 PM FACILITIES CLERK Gender Identity Male 12/22/2017 5:18 AM [...] evidence of glaucoma. Plan: [facility] oct-[facility] in [facility] right eye #2 Cataract, both eyes. [...] (myopia, presbyopia). CDM Reports - EYEGEN Id: [id number] Status: Fnl documented in this encounter Plan of Treatment Upcoming Encounters Date Type Department Care Team (Latest Contact Info) Description 01/24/2024 10:30 AM CDT Ancillary Procedure Department of Ophthalmology in [place], [place] [address] [place] [address] 01/24/2024 11:00 AM CDT Comprehensive Visit Department of Ophthalmology in [place], [place] [address] [place] [address] David Zeng M.D. [address] [place] [address] documented as of this encounter Visit Diagnoses Not on filedocumented in this encounter Additional Health Concerns Infection Onset Date Last Indicated Resolved Time COVID19 Pending 03/22/2021 03/22/2021 03/22/2021 5 :21 PM CDT COVID19 Pending 04/20/2021 04/20/2021 04/20/2021 1 1:46 AM CDT documented as of this encounter Care Teams Field Sales Representative Relationship Specialty Start Date End Date Elsewhere, Pcp PCP - General Family Medicine 03/24/21 documented as of this encounter
--- OUTSIDE RECORDS SUMMARY | 2024-01-11 08:51 | XMS_ITS | Encounter Summary ---
Author Name Unknown Organization [facility] Address [address] [place] [address] Care Team Providers Care Rat Culturist Name Role Phone Elsewhere, Pcp Primary Care Provider Unavailabl e Reason for Referral * Outpatient (Routine) - Authorized Specialty Diagnoses / Procedures Referred By Evie t Referred To Contact Ophthalmology Diagnoses Intraocular Lens Implant Status Post Opacity Lens Posterior Capsule Procedures Yag Capsulotomy - OD - Right Eye Dorota Ibarra O.D. [address] [place] [address] [facility] Referral ID Status Reason Start Date Expiration Date V isits Requested Visits Authorized [id number] Authorized 01/10/2024 01/09/2025 1 1 * Outpatient (Routine) - Authorized Specialty Diagnoses / Procedures Referred By Contdelphine t Referred To Contact Ophthalmology [place] [address] [facility] Referral ID Status Reason Start Date Expiration Date V isits Requested Visits Authorized [id number] Authorized 08/21/2023 08/20/2026 1 1 Scheduling Instructions [facility] glc with testing [place] preferred ING MACHINE OPERATOR Reason for Visit * Reason Comments Glaucoma Suspect * Outpatient (Routine) - Closed Specialty Diagnoses / Procedures Referred By Contac t Referred To Contact Ophthalmology Dorota Ibarra O.D. [address] [place] [address] [facility] Referral ID Status Reason Start Date Expiration Date Visits Re quested Visits Authorized [id number] Closed 06/15/2022 06/14/2025 1 1 Encounter Details Date Type Department Care Team (Latest Contact Info) Description 08/21/2023 3:45 PM LAPPING MACHINE OPERATOR Office Visit Department of Ophthalmology in [place], [place] [address] [place] [address] Dorota Ibarra O.D. 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 More than 4 times per year [...] and heating? Not hard at all 08/16/2023 [facility] [place] [facility] - Occupational Stress [...] Master's degree (e.g., MA, MS, Fanny, MEd, MAXILLOFACIAL SURGEON, [employer]) 12/25/2020 Sex and Gender Information Value Date Recorded Sex Assigned at Male 08/16/2023 8:01 PM LAPPING MACHINE OPERATOR Gender Identity Male 12/22/2017 5:18 [...] off drops. Follow up 12 mo with [facility] for HVF, dilation w tech, and OCT [...] eyes (Dr. House, Apr 22). Flat, stable. ING MACHINE OPERATOR documented in this encounter Miscellaneous Notes * Addendum Note - Dorota Ibarra O.D. - 08/21/2023 3:45 PM CSTAddended by: DOROTA IBARRA on: 01/10/2024 12:56 PM Modules accepted: Orders documented in this encounter Plan of Treatment Upcoming Encounters Date Type Department Care Team (Latest Contact Info) Description 01/24/2024 10:30 AM CDT Ancillary Procedure Department of Ophthalmology in [place], [place] [address] [place] [address] 01/24/2024 11:00 AM CDT Comprehensive Visit Department of Ophthalmology in [place], [place] [address] [place] [address] David Zeng M.D. [address] [place] [address] Scheduled Orders Name Type Priority Associated Diagnoses [...] Bilateral documented in this encounter Care Teams Rat Culturist Relationship Specialty Start Date End Date Elsewhere, Pcp PCP - General Family Medicine 03/24/21 documented as of this encounter
--- OUTSIDE RECORDS SUMMARY | 2024-01-11 08:51 | XMS_ITS | Encounter Summary ---
Author Name Unknown Organization [facility] Address [address] [place] [address] Care Team Providers Care Supervisor Lens Generating Name Role Phone Elsewhere, Pcp Primary Care Provider Unavailabl e Encounter Details Date Type Department Care Team (Late st Contact Info) Description 02/23/2005 Historical Ophthalmology RST OPH Ranjit Mcdonald M.D. 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 First glasses in second grade. 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 CDM Reports - EYEDrizly Id: [id number] Status: Fnl documented in this encounter Plan of Treatment Upcoming Encounters Date Type Department Care Team (Latest Contact Info) Description 01/24/2024 10:30 AM CDT Ancillary Procedure Department of Ophthalmology in [place], [place] [address] [place] [address] 01/24/2024 11:00 AM CDT Comprehensive Visit Department of Ophthalmology in [place], [place] [address] [place] [address] David Zeng M.D. [address] [place] [address] documented as of this encounter Visit Diagnoses Not on filedocumented in this encounter Additional Health Concerns Infection Onset Date Last Indicated Resolved Time COVID19 Pending 03/22/2021 03/22/2021 03/22/2021 5 :21 PM CDT COVID19 Pending 04/20/2021 04/20/2021 04/20/2021 1 1:46 AM CDT documented as of this encounter Care Teams Supervisor Lens Generating Relationship Specialty Start Date End Date Elsewhere, Pcp PCP - General Family Medicine 03/24/21 documented as of this encounter
--- OUTSIDE RECORDS SUMMARY | 2024-01-11 08:51 | XMS_ITS | Encounter Summary ---
Author Name Unknown Organization [facility] Address [address] [place] [address] Care Team Providers Care Coil Connector Repairer Name Role Phone Elsewhere, Pcp Primary Care Provider Unavailabl e Encounter Details Date Type Department Care Team (Late st Contact Info) Description 01/16/2012 Historical Ophthalmology RST OPH Janey Torres O.D. [address] [place] [address] Social History Tobacco Use Types Packs/Day Years Used Date Smoking Tobacco: Never Assessed Sex and Gender Information Value Date Recorded Sex Assigned at Male 08/16/2023 8:01 PM PIT SUPERVISOR Gender Identity Male 12/22/2017 5:18 AM [...] (myopia, presbyopia). CDM Reports - EYEGEN Id: [id number] Status: Fnl documented in this encounter Plan of Treatment Upcoming Encounters Date Type Department Care Team (Latest Contact Info) Description 01/24/2024 10:30 AM CDT Ancillary Procedure Department of Ophthalmology in [place], [place] [address] [place] [address] 01/24/2024 11:00 AM CDT Comprehensive Visit Department of Ophthalmology in [place], [place] [address] [place] [address] David Zeng M.D. [address] [place] [address] documented as of this encounter Visit Diagnoses Not on filedocumented in this encounter Additional Health Concerns Infection Onset Date Last Indicated Resolved Time COVID19 Pending 03/22/2021 03/22/2021 03/22/2021 5 :21 PM CDT COVID19 Pending 04/20/2021 04/20/2021 04/20/2021 1 1:46 AM CDT documented as of this encounter Care Teams Coil Connector Repairer Relationship Specialty Start Date End Date Elsewhere, Pcp PCP - General Family Medicine 03/24/21 documented as of this encounter
--- OUTSIDE RECORDS SUMMARY | 2024-01-11 08:51 | XMS_ITS | Encounter Summary ---
Author Name Unknown Organization [facility] Address [address] [place] [address] Care Team Providers Care Wearing Apparel Assembler Name Role Phone Elsewhere, Pcp Primary Care Provider Unavailabl e Encounter Details Date Type Department Care Team (Late st Contact Info) Description 12/10/2008 Historical Ophthalmology RST OPH Ranjit Mcdonald M.D. Social History Tobacco Use Types Packs/Day Years Used Date Smoking Tobacco: Never Assessed Sex and Gender Information Value Date Recorded Sex Assigned at Male 08/16/2023 8:01 PM BODY MASKER Gender Identity Male 12/22/2017 5:18 AM CDT [...] with GME). CDM Reports - EYEGEN Id: [id number] Status: Fnl documented in this encounter Plan of Treatment Upcoming Encounters Date Type Department Care Team (Latest Contact Info) Description 01/24/2024 10:30 AM CDT Ancillary Procedure Department of Ophthalmology in [place], [place] [address] [place] [address] 01/24/2024 11:00 AM CDT Comprehensive Visit Department of Ophthalmology in [place], [place] [address] [place] [address] David Zeng M.D. [address] [place] [address] documented as of this encounter Visit Diagnoses Not on filedocumented in this encounter Additional Health Concerns Infection Onset Date Last Indicated Resolved Time COVID19 Pending 03/22/2021 03/22/2021 03/22/2021 5 :21 PM CDT COVID19 Pending 04/20/2021 04/20/2021 04/20/2021 1 1:46 AM CDT documented as of this encounter Care Teams Wearing Apparel Assembler Relationship Specialty Start Date End Date Elsewhere, Pcp PCP - General Family Medicine 03/24/21 documented as of this encounter
--- OUTSIDE RECORDS SUMMARY | 2024-01-11 08:51 | XMS_ITS | Encounter Summary ---
Author Name Unknown Organization [facility] Address [address] [place] [address] Care Team Providers Care Keypunch Operator Name Role Phone Elsewhere, Pcp Primary Care Provider Unavailabl e Encounter Details Date Type Department Care Team (Late st Contact Info) Description 01/10/2013 Historical Ophthalmology RST OPH Janey Torres O.D. 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 CDM Reports - [id number] Id: [id number] Status: Fnl documented in this encounter Plan of Treatment Upcoming Encounters Date Type Department Care Team (Latest Contact Info) Description 01/24/2024 10:30 AM CDT Ancillary Procedure Department of Ophthalmology in [place], [place] [address] [place] [address] 01/24/2024 11:00 AM CDT Comprehensive Visit Department of Ophthalmology in [place], [place] [address] [place] [address] David Zeng M.D. [address] [place] [address] documented as of this encounter Visit Diagnoses Not on filedocumented in this encounter Additional Health Concerns Infection Onset Date Last Indicated Resolved Time COVID19 Pending 03/22/2021 03/22/2021 03/22/2021 5 :21 PM CDT COVID19 Pending 04/20/2021 04/20/2021 04/20/2021 1 1:46 AM CDT documented as of this encounter Care Teams Keypunch Operator Relationship Specialty Start Date End Date Elsewhere, Pcp PCP - General Family Medicine 03/24/21 documented as of this encounter
--- OUTSIDE RECORDS SUMMARY | 2024-01-11 08:51 | XMS_ITS | Encounter Summary ---
Author Name Unknown Organization [facility] Address [address] [place] [address] Care Team Providers Care Dive Master Name Role Phone Elsewhere, Pcp Primary Care Provider Unavailabl e Encounter Details Date Type Department Care Team (Late st Contact Info) Description 01/23/2014 Historical Ophthalmology RST OPH Janey Torres O.D. 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 CDM Reports - EYECymax Id: [id number] Status: Fnl documented in this encounter Plan of Treatment Upcoming Encounters Date Type Department Care Team (Latest Contact Info) Description 01/24/2024 10:30 AM CDT Ancillary Procedure Department of Ophthalmology in [place], [place] [address] [place] [address] 01/24/2024 11:00 AM CDT Comprehensive Visit Department of Ophthalmology in [place], [place] [address] [place] [address] David Zeng M.D. [address] [place] [address] documented as of this encounter Visit Diagnoses Not on filedocumented in this encounter Additional Health Concerns Infection Onset Date Last Indicated Resolved Time COVID19 Pending 03/22/2021 03/22/2021 03/22/2021 5 :21 PM CDT COVID19 Pending 04/20/2021 04/20/2021 04/20/2021 1 1:46 AM CDT documented as of this encounter Care Teams Dive Master Relationship Specialty Start Date End Date Elsewhere, Pcp PCP - General Family Medicine 03/24/21 documented as of this encounter
--- OUTSIDE RECORDS SUMMARY | 2024-01-11 08:51 | XMS_ITS | Encounter Summary ---
Author Name Unknown Organization [facility] Address [address] [place] [address] Care Team Providers Care Configuration Management Advisor Name Role Phone Elsewhere, Pcp Primary Care Provider Unavailabl e Encounter Details Date Type Department Care Team (Late st Contact Info) Description 12/05/2006 Historical Ophthalmology RST OPH Ranjit Mcdonald M.D. 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 CDM Reports - EYEGEN Id: [id number] Status: Fnl documented in this encounter Plan of Treatment Upcoming Encounters Date Type Department Care Team (Latest Contact Info) Description 01/24/2024 10:30 AM CDT Ancillary Procedure Department of Ophthalmology in [place], [place] [address] [place] [address] 01/24/2024 11:00 AM CDT Comprehensive Visit Department of Ophthalmology in [place], [place] [address] [place] [address] David Zeng M.D. [address] [place] [address] documented as of this encounter Visit Diagnoses Not on filedocumented in this encounter Additional Health Concerns Infection Onset Date Last Indicated Resolved Time COVID19 Pending 03/22/2021 03/22/2021 03/22/2021 5 :21 PM CDT COVID19 Pending 04/20/2021 04/20/2021 04/20/2021 1 1:46 AM CDT documented as of this encounter Care Teams Configuration Management Advisor Relationship Specialty Start Date End Date Elsewhere, Pcp PCP - General Family Medicine 03/24/21 documented as of this encounter
--- OUTSIDE RECORDS SUMMARY | 2024-01-11 08:51 | XMS_ITS | Clinical Summary ---
Author Name Unknown Organization [employer] [facility] Address [place], [place] [address] Care Team Providers Care Wood Crew Supervisor Name Role Phone Caridad Vaca MD Primary Care Provider [phone] Social History Tobacco Use Types Packs/Day Years [...] 1 - PCV) 002 COVID-19 vaccine series (2022- season) 3 Influenza for age 65+ 05/19/2024 Care Teams Wood Crew Supervisor Relationship Specialty Start Date End Date Caridad Vaca MD [address] [place] [address] PCP - General Internal Medicine 11/28/17
--- OUTSIDE RECORDS SUMMARY | 2024-01-11 08:51 | XMS_ITS | Encounter Summary ---
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 [address] [place] [address] [facility] Referral ID Status Reason Start Date Expiration Date Visits Re quested Visits Authorized [id number] Closed 11/27/2023 11/26/2024 1 1 Encounter Details Date Type Department Care Team (Latest Contact Info) Description 11/27/2023 Clinical Communication Department of Cardiovascular Medicine in [place], [place] [address] [place] [address] Johny Martínez Jr., M.D. [address] [place] [address] Social History Tobacco Use Types Packs/Day Years [...] week 03/21/2021 How often do you attend [facility] or restorationist services? More than 4 times per year 03/21/2021 Do you belong to any clubs o r organizations such as congregational groups, unions, fraternal or athletic groups, or [...] and heating? Not hard at all 08/16/2023 [facility] - Occupational Stress Questionnaire Answer [...] your living situation today? I have a [facility] place to live 08/16/2023 Education Answer Date Recorded What is the highest level of school you have completed or the highest degree you have received? 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, [employer]) 12/25/2020 Sex and Gender Information Value Date Recorded Sex Assigned at Male 08/16/2023 8:01 PM PACKAGE SORTER Gender Identity Male 12/22/2017 5:18 AM CDT Sexual Orientation Straight 12/22/2017 5: 18 AM CDT documented as of this encounter Plan of Treatment Upcoming Encounters Date Type Department Care Team (Latest Contact Info) Description 01/24/2024 10:30 AM CDT Ancillary Procedure Department of Ophthalmology in [place], [place] [address] [place] [address] 01/24/2024 11:00 AM CDT Comprehensive Visit Department of Ophthalmology in [place], [place] [address] [place] [address] David Zeng M.D. [address] [place] [address] documented as of this encounter Results * [...] estimated ejection fraction range 50% - 55% (bjvu-rh-onan variability). 2. Status post 27mm St. Tru [...] graphics), estimated ejectionfraction range 50% - 55% (gicp-ce-hlbo variability). 2. Status post 27mm St. Tru [...] CDT) Ventricular Rate ECG/Min 81 BPM MUSE RI Interval 136 ms MUSE QRSD Interval 150 ms MUSE QT Interval 416 ms MUSE QTC Interval 483 ms MUSE R [place] -61 degrees MUSE T Wave [place] 51 degrees MUSE 11/29/2023 8:39 AM CDT [...] Jr., M.D. ECG ORDERABLES Performing Organization Address [facility] Co de Phone Number MUSE NA * [...] M.D. LAB BLOOD ADD-ON Performing Organization Address [facility] [place] Co de Phone Number [facility] [address] [place] [address], [facility] DTL [facility] [address] [place] [address] * Lipid Panel (11/29/2023 8:22 AM CDT) [...] Johny Martínez Jr., M.D. LAB BLOOD ADD-ON [place] [id number], [facility] [address] [place] [address] * (ABNORMAL) CBC with Differential, Blood (11/29/2023 [...] Johny Martínez Jr., M.D. LAB BLOOD ADD-ON [facility] [address] [place] [address], [facility] DTL [facility] [address] [place] [address] [facility] [address] [place] [address] * (ABNORMAL) Prothrombin Time (PT) (11/29/2023 8:22 [...] Johny Martínez Jr., M.D. LAB BLOOD ADD-ON [facility] [address] [place] [address] * Sodium (11/29/2023 8:22 AM CDT) Sodium, S 142 135 - 145 mmol/L 11/29/2023 11:01 AM CDT DT Blood (Blood, Venous) 11/29/2023 8:22 AM CDT 11/29/2023 9:01 AM CDT Johny Martínez Jr., M.D. LAB BLOOD ADD-ON Performing Organization Address [facility] [place] Co de Phone Number [facility] [address] [place] [address] * Potassium (11/29/2023 8:22 AM CDT) Potassium, S 4.2 3.6 - 5.2 mmol/L 11/29/2023 11:01 AM CDT DTL Blood (Blood, Venous) 11/29/2023 8:22 AM CDT 11/29/2023 9:01 AM CDT Johny Martínez Jr., M.D. LAB BLOOD ADD-ON Performing Organization Address [facility]/ZIP Co de Phone Number [facility] [address] [place] [address] * (ABNORMAL) Glucose, Fasting (11/29/2023 8:22 AM CDT) Glucose, P 114(H) 70 - 100 mg/dL 11/29/2023 9:52 AM CDT DTL Last Intake 2 hr 11/29/2023 9:01 AM CDT DTL Blood (Blood, Venous) 11/29/2023 8:22 AM CDT 11/29/2023 9:01 AM CDT Johny Martínez Jr., M.D. LAB BLOOD NON AD D-ON [facility] [address] [place], [place] [address] [place] [address] [facility] [place] [facility] [address] [place] [address] * Creatinine with Estimated GFR (11/29/2023 8:22 AM CDT) Creatinine 1.17 0.74 - 1.35 mg/dL 11/29/2023 11:01 AM CDT DTL Estimated GFR (eGFR) 61 >=60 mL/min/BSA 11/29/2023 11:01 AM CDT DTL Comment: Estimated GFR calculated using the 2020 CKD_EPI creatinine equation. Blood (Blood, Venous) 11/29/2023 8:22 AM CDT 11/29/2023 9:01 AM CDT Johny Martínez Jr., M.D. LAB BLOOD ADD-ON [facility] [address] [place] [address], [facility] [place] [address] [place] [address] * Albumin (11/29/2023 8:22 AM CDT) Albumin, S 3.9 3.5 - 5.0 g/dL 11/29/2023 11:01 AM CDT DTL Blood (Blood, Venous) 11/29/2023 8:22 AM CDT 11/29/2023 9:01 AM CDT Johny Martínez Jr., M.D. 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
--- OUTSIDE RECORDS SUMMARY | 2024-01-11 08:51 | XMS_ITS | Encounter Summary ---
Author Name Unknown Organization [facility] Address [address] [place] [address] Care Team Providers Care Developing Machine Operator Name Role Phone Elsewhere, Pcp Primary Care Provider Unavailabl e Encounter Details Date Type Department Care Team (Late st Contact Info) Description 11/26/2007 Historical Ophthalmology RST OPH Ranjit Mcdonald M.D. Social History Tobacco Use Types Packs/Day Years Used Date Smoking Tobacco: Never Assessed Sex and Gender Information Value Date Recorded Sex Assigned at Male 08/16/2023 8:01 PM SISAL OPERATOR Gender Identity Male 12/22/2017 5:18 AM [...] (myopia, presbyopia). CDM Reports - EYEGEN Id: [id number] Status: Fnl documented in this encounter Plan of Treatment Upcoming Encounters Date Type Department Care Team (Latest Contact Info) Description 01/24/2024 10:30 AM CDT Ancillary Procedure Department of Ophthalmology in [place], [place] [address] [place] [address] 01/24/2024 11:00 AM CDT Comprehensive Visit Department of Ophthalmology in [place], [place] [address] [place] [address] David Zeng M.D. [address] [place] [address] documented as of this encounter Visit Diagnoses Not on filedocumented in this encounter Additional Health Concerns Infection Onset Date Last Indicated Resolved Time COVID19 Pending 03/22/2021 03/22/2021 03/22/2021 5 :21 PM CDT COVID19 Pending 04/20/2021 04/20/2021 04/20/2021 1 1:46 AM CDT documented as of this encounter Care Teams Developing Machine Operator Relationship Specialty Start Date End Date Elsewhere, Pcp PCP - General Family Medicine 03/24/21 documented as of this encounter
--- OUTSIDE RECORDS SUMMARY | 2024-01-11 08:51 | XMS_ITS | Encounter Summary ---
Author Name Unknown Organization [facility] Address [address] [place] [address] Care Team Providers Care Tube Balancer Name Role Phone Elsewhere, Pcp Primary Care Provider Unavailabl e Encounter Details Date Type Department Care Team (Late st Contact Info) Description 01/10/2006 Historical Ophthalmology RST OPH Ranjit Mcdonald M.D. 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 CDM Reports - EYEGEN Id: [id number] Status: Fnl documented in this encounter Plan of Treatment Upcoming Encounters Date Type Department Care Team (Latest Contact Info) Description 01/24/2024 10:30 AM CDT Ancillary Procedure Department of Ophthalmology in [place], [place] [address] [place] [address] 01/24/2024 11:00 AM CDT Comprehensive Visit Department of Ophthalmology in [place], [place] [address] [place] [address] David Zeng M.D. [address] [place] [address] documented as of this encounter Visit Diagnoses Not on filedocumented in this encounter Additional Health Concerns Infection Onset Date Last Indicated Resolved Time COVID19 Pending 03/22/2021 03/22/2021 03/22/2021 5 :21 PM CDT COVID19 Pending 04/20/2021 04/20/2021 04/20/2021 1 1:46 AM CDT documented as of this encounter Care Teams Tube Balancer Relationship Specialty Start Date End Date Elsewhere, Pcp PCP - General Family Medicine 03/24/21 documented as of this encounter
--- OUTSIDE RECORDS SUMMARY | 2024-01-11 08:51 | XMS_ITS | Encounter Summary ---
Author Name Unknown Organization [facility] Address [address] [place] [address] Care Team Providers Care Report Checker Name Role Phone Elsewhere, Pcp Primary Care Provider Unavailabl e Encounter Details Date Type Department Care Team (Late st Contact Info) Description 08/22/2005 Historical Ophthalmology RST OPH Ranjit Mcdonald M.D. 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 - 08/22/2005 12:00 AM CST Eye General CHIEF COMPLAINT 6 [facility] glaucoma follow up HISTORY OF PRESENT ILLNESS Pt is here for a six month [facility] follow up. Pt feels his vision has [...] (myopia, presbyopia). CDM Reports - EYEGEN Id: [id number] Status: Fnl documented in this encounter Plan of Treatment Upcoming Encounters Date Type Department Care Team (Latest Contact Info) Description 01/24/2024 10:30 AM CDT Ancillary Procedure Department of Ophthalmology in [place], [place] [address] [place] [address] 01/24/2024 11:00 AM CDT Comprehensive Visit Department of Ophthalmology in [place], [place] [address] [place] [address] David Zeng M.D. [address] [place] [address] documented as of this encounter Visit Diagnoses Not on filedocumented in this encounter Additional Health Concerns Infection Onset Date Last Indicated Resolved Time COVID19 Pending 03/22/2021 03/22/2021 03/22/2021 5 :21 PM CDT COVID19 Pending 04/20/2021 04/20/2021 04/20/2021 1 1:46 AM CDT documented as of this encounter Care Teams Report Checker Relationship Specialty Start Date End Date Elsewhere, Pcp PCP - General Family Medicine 03/24/21 documented as of this encounter
== END 2024-01-11 08:47 | disposition home or self-care (01) ==
LOC: MAMMO 08:47
PROVIDERS: PCP Internal Medicine; Visit Provider Internal Medicine
DX: N64.4 Mastodynia (principal)
CPT/HCPCS: 77066; G0279

== ENCOUNTER 2024-10-08 16:15 | Outpatient (RCR) | payer MEDICARE, BC, SELFPAY ==
--- NOTE | 2024-08-05 15:40 | PT.OPEX ---
PT [place] Outpatient Eval PT [facility] Outpatient Eval Start: 08/05/24 11:13 Freq: Status: Active Protocol: Document 08/05/24 13:02 LEXY (Rec: 08/05/24 15:37 LEXY [id number]) E-signed By Gabriel Ross PT Physical Therapy Outpatient Evaluation Insurance Information Insurance Name Medicare B,Blue Cross/Blue Shield Medical Diagnosis Cervical paraspinal muscle spasm Treating Diagnosis Neck pain Referring MD Ang Subjective Preferred Name Eduardo Upton Pt. comes to therapy today with complaints of left sided neck pain that has been present for about 5-6 months now. He does report falling on [employer] deck about 4 weeks ago which seems to have worsened his neck pain and stiffness even more. No history of any significant neck pain other than a bad flare many years ago while living in [place] for a year. He is currently having trouble turning his head for driving and normal ADL's. His sleeping is also disturbed by the pain. His pain is very low level when in neutral position but is sharp when turning his head. PMH includes heart bypass surgery in 2018; HTN and arthritis. Pain Comments 7-9 Date of Last Physician Visit 07/09/24 Current Work Status Retired Objective Other/Pertinent Objective Posture: Guarded head with mild forward head posture CROM: flexion 75%; extension 25 deg with pain on left; bilateral rotation 25 deg with left sided pain; bilateral SBing 15% with left sided pain . UE AROM: WNL Palpation: Pain left C1,2,3 facets with hypertonus of left levator, scalene and upper trap Assessment Assessment/Impression Objectively, pt. demonstrates; guarded and forward head posture; significant loss of cervical rotation, side bending and extension due to joint and soft tissue restrictions with pain; hypomobility of C1,2 and C2,3 segments with pain; pain and hypertonus of left side upper trap, levator scapula, and scalene muscles; and deep neck flexor and scapular stabilizer weakness. He would benefit from skilled therapy working on manual therapy and progressive HEP. Primary Functional Limitations turning head driving, looking up Plan of Care Rehabilitation Potential Excellent Physical Therapy Goals 1. Pt. will be independent with HEP for self maintenance in 8 weeks. 2. Pt. will demonstrate improved neck rotation and extension ROM by 50% in 8 weeks. 3. Pt. will be able to turn head for safe driving without increased pain in 8 weeks. Coordination/Communication With Referral Source Treatment Plan/Direct Interventions Joint Mobilization,Manual Therapy,Self-Care/Home Management,Therapeutic Exercises Frequency/Duration Weekly for 6-8 weeks. Patient Will Be Discharged From Therapy Independent w/HEP, Independently Progressing Evaluation Billing Complexity Low Certification Information Initial Certification Date 08/05/24 Ending Certification Date 11/03/24 Provider Signature Required Yes Provider Signature Shows Agreement With POC & Medical Necessity Physician NPI Number Write NPI# Here Physician Comment/Change : Physician Signature & Date Requested Please Sign/Date Here
== END 2024-10-11 14:08 | disposition home or self-care (01) ==
PROVIDERS: PCP Internal Medicine; Visit Provider Family Medicine
DX: M62.838 Other muscle spasm (principal); M54.2 Cervicalgia; Z51.89 Encounter for other specified aftercare
CPT/HCPCS: 97035; 97110; 97140; 97161

== ENCOUNTER 2025-01-31 07:50 | Outpatient (CLI) | payer MEDICARE, BC, SELFPAY | END 2025-01-31 07:51 | disposition home or self-care (01) | LOC: NFLDREF 02-07 00:30 | PROVIDERS: PCP Internal Medicine; Referring Provider Internal Medicine; Visit Provider Internal Medicine | DX: R73.03 Prediabetes (principal); I25.10 Atherosclerotic heart disease of native coronary artery without angina pectoris; I10 Essential (primary) hypertension; E83.42 Hypomagnesemia | CPT/HCPCS: 80048; 80061; 83735 ==

== ENCOUNTER 2025-09-08 11:37 | Outpatient (CLI) | payer MEDICARE, BC, SELFPAY | END 2025-09-08 11:38 | disposition home or self-care (01) | PROVIDERS: PCP Internal Medicine; Visit Provider Internal Medicine | DX: R10.13 Epigastric pain (principal); Z12.5 Encounter for screening for malignant neoplasm of prostate | CPT/HCPCS: 80053; 82150; 83690; 84153 ==

== ENCOUNTER 2025-09-12 07:38 | Outpatient (CLI) | payer MEDICARE, BC, SELFPAY ==
--- NOTE | 2025-09-12 08:00 | CRLHL7_ITS ---
For Patients: As a result of the Century Cures Act, medical imaging exams and procedure reports are released immediately into your electronic medical record. You may view this report before your referring provider. If you have questions, please contact your health care provider. Indication: EPIGASTRIC PAIN ON AND OFF FOR 1 YEAR. ALWAYS FEELS FULL Technique: CT Abdomen/Pelvis 69CC ISOVUE 370 intravenous contrast AND WATER PREP Please note that all CT scans at this facility use dose modulation, iterative reconstruction, and/or weight-based dosing when appropriate to reduce radiation dose to as low as reasonably achievable. Comparison: 05/10/2018 Findings: Pulmonary fibrosis in a peripheral and bibasilar distribution bilaterally is again noted, mildly progressed. Cardiomegaly. Vascular calcifications. Postop changes aortic valve replacement. Sub cm cyst in the dome of the liver. No suspicious intrahepatic mass. Small splenule. No splenomegaly. Adrenal glands are within normal limits. Sub cm right renal cyst. No hydronephrosis. Pancreatic parenchyma unremarkable. Normal gallbladder. No aneurysm. Postop changes to the midline of the abdominal wall. No fluid collection or abscess. No hernia. Status post appendectomy. No bowel obstruction or free air. No free fluid. No adenopathy. 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 Facet degeneration lower lumbar spine. Chronic osteitis pubis. Mild spurring at both hip joints. Impression: No acute or suspicious findings. No pancreatic mass. Please note that all CT scans at this facility use dose modulation, iterative reconstruction, and/or weight-based dosing when appropriate to reduce radiation dose to as low as reasonably achievable. Dictated by Lee Ennis MD @ 09/15/2025 9:00:57 AM (Electronically Signed)
== END 2025-09-12 07:39 | disposition home or self-care (01) ==
LOC: CT 07:39
PROVIDERS: PCP Internal Medicine; Visit Provider Internal Medicine
DX: R10.13 Epigastric pain (principal)
CPT/HCPCS: 74177; Q9967